=== PATIENT | female | born 1980 | race Caucasian/White ===

== ENCOUNTER 2022-06-23 14:45 | Outpatient (RCR) | payer OTHER, SELFPAY ==
[2022-04-19 02:58] LABS: Albumin* 4.3 g/dL (3.3-5.0); Chloride* 104 mmol/L (96-114); Potassium* 4.1 mmol/L (3.6-5.1); Sodium* 139 mmol/L (135-149)
[2022-04-19 03:00] LABS: Bilirubin Total* 0.3 mg/dL (0.1-1.5); Carbon Dioxide* 28 mmol/L (20-32); Creatinine* 0.9 mg/dL (0.5-1.5); Estimated Glomerular Filt Rate 82.37
[2022-04-19 03:01] LABS: Alanine Aminotransferase* 12 U/L (4-35); Alkaline Phosphatase* 52 U/L (40-150); Aspartate Amino Transferase* 25 U/L (12-35); Blood Urea Nitrogen* 12 mg/dL (5-24); Calcium* 9.3 mg/dL (8.4-10.6); Glucose* 86 mg/dL (60-115); Total Protein* 6.9 g/dL (6.0-8.3)
[2022-04-20 20:57] LABS: Urine Osmolality 123 mOsm/kg
[2022-05-25 21:36] LABS: Albumin* 4.3 g/dL (3.3-5.0); Chloride* 103 mmol/L (96-114)
[2022-05-25 21:37] LABS: Potassium* 4.2 mmol/L (3.6-5.1); Sodium* 138 mmol/L (135-149)
[2022-05-25 21:39] LABS: Alkaline Phosphatase* 49 U/L (40-150); Aspartate Amino Transferase* 23 U/L (12-35); Bilirubin Total* 0.2 mg/dL (0.1-1.5); Blood Urea Nitrogen* 13 mg/dL (5-24); Carbon Dioxide* 27 mmol/L (20-32); Creatinine* 0.9 mg/dL (0.5-1.5); Estimated Glomerular Filt Rate 82 ml/min; Glucose* 91 mg/dL (60-115); Total Protein* 7.3 g/dL (6.0-8.3)
[2022-05-25 21:40] LABS: Alanine Aminotransferase* 12 U/L (4-35); Calcium* 9.2 mg/dL (8.4-10.6)
[2022-05-27 20:52] LABS: Urine Osmolality 138 mOsm/kg
[2022-06-23 15:18] LABS: Albumin* 4.4 g/dL (3.3-5.0); Chloride* 104 mmol/L (96-114); Potassium* 4.2 mmol/L (3.6-5.1); Sodium* 137 mmol/L (135-149)
[2022-06-23 15:20] LABS: Creatinine* 0.9 mg/dL (0.5-1.5); Estimated Glomerular Filt Rate 82 ml/min
[2022-06-23 15:21] LABS: Alanine Aminotransferase* 12 U/L (4-35); Alkaline Phosphatase* 54 U/L (40-150); Aspartate Amino Transferase* 27 U/L (12-35); Bilirubin Total* 0.7 mg/dL (0.1-1.5); Blood Urea Nitrogen* 11 mg/dL (5-24); Calcium* 9.1 mg/dL (8.4-10.6); Carbon Dioxide* 25 mmol/L (20-32); Glucose* 90 mg/dL (60-115); Total Protein* 7.1 g/dL (6.0-8.3)
[2022-08-03 22:31] LABS: Albumin* 4.5 g/dL (3.3-5.0)
[2022-08-03 22:32] LABS: Chloride* 103 mmol/L (96-114); Sodium* 138 mmol/L (135-149)
[2022-08-03 22:34] LABS: Aspartate Amino Transferase* 23 U/L (12-35); Bilirubin Total* 0.3 mg/dL (0.1-1.5); Carbon Dioxide* 29 mmol/L (20-32); Creatinine* 0.9 mg/dL (0.5-1.5); Estimated Glomerular Filt Rate 82 ml/min; Total Protein* 7.2 g/dL (6.0-8.3)
[2022-08-03 22:35] LABS: Alanine Aminotransferase* 15 U/L (4-35); Alkaline Phosphatase* 52 U/L (40-150); Blood Urea Nitrogen* 12 mg/dL (5-24); Calcium* 9.3 mg/dL (8.4-10.6); Glucose* 74 mg/dL (60-115)
[2022-09-19 14:03] LABS: Albumin* 4.6 g/dL (3.3-5.0); Chloride* 107 mmol/L (96-114); Sodium* 140 mmol/L (135-149)
[2022-09-19 14:04] LABS: Potassium* 4.3 mmol/L (3.6-5.1)
[2022-09-19 14:06] LABS: Alanine Aminotransferase* 14 U/L (4-35); Alkaline Phosphatase* 48 U/L (40-150); Aspartate Amino Transferase* 22 U/L (12-35); Bilirubin Total* 0.7 mg/dL (0.1-1.5); Blood Urea Nitrogen* 11 mg/dL (5-24); Carbon Dioxide* 26 mmol/L (20-32); Creatinine* 0.9 mg/dL (0.5-1.5); Estimated Glomerular Filt Rate 82 ml/min; Glucose* 73 mg/dL (60-115); Total Protein* 7.1 g/dL (6.0-8.3)
[2022-09-19 14:07] LABS: Calcium* 9.3 mg/dL (8.4-10.6)
[2022-11-01 21:23] LABS: Albumin* 4.2 g/dL (3.3-5.0); Chloride* 103 mmol/L (96-114); Potassium* 4.3 mmol/L (3.6-5.1); Sodium* 139 mmol/L (135-149)
[2022-11-01 21:25] LABS: Creatinine* 0.8 mg/dL (0.5-1.5); Estimated Glomerular Filt Rate 95 ml/min
[2022-11-01 21:26] LABS: Alanine Aminotransferase* 15 U/L (4-35); Alkaline Phosphatase* 46 U/L (40-150); Aspartate Amino Transferase* 23 U/L (12-35); Bilirubin Total* 0.5 mg/dL (0.1-1.5); Blood Urea Nitrogen* 10 mg/dL (5-24); Carbon Dioxide* 29 mmol/L (20-32); Glucose* 82 mg/dL (60-115); Total Protein* 7.2 g/dL (6.0-8.3)
[2022-11-01 21:27] LABS: Calcium* 9.2 mg/dL (8.4-10.6)
[2022-12-07 14:57] LABS: Chloride* 105 mmol/L (96-114)
[2022-12-07 14:58] LABS: Albumin* 4.5 g/dL (3.3-5.0); Potassium* 4.6 mmol/L (3.6-5.1); Sodium* 139 mmol/L (135-149)
[2022-12-07 15:01] LABS: Alanine Aminotransferase* 15 U/L (4-35); Alkaline Phosphatase* 44 U/L (40-150); Aspartate Amino Transferase* 22 U/L (12-35); Bilirubin Total* 0.9 mg/dL (0.1-1.5); Blood Urea Nitrogen* 9 mg/dL (5-24); Carbon Dioxide* 29 mmol/L (20-32); Creatinine* 0.9 mg/dL (0.5-1.5); Estimated Glomerular Filt Rate 82 ml/min; Glucose* 80 mg/dL (60-115); Total Protein* 7.5 g/dL (6.0-8.3)
[2022-12-07 15:02] LABS: Calcium* 9.5 mg/dL (8.4-10.6)
[2023-03-21 22:17] LABS: Albumin* 4.5 g/dL (3.3-5.0); Chloride* 103 mmol/L (96-114)
[2023-03-21 22:18] LABS: Potassium* 4.3 mmol/L (3.6-5.1); Sodium* 138 mmol/L (135-149)
[2023-03-21 22:20] LABS: Aspartate Amino Transferase* 24 U/L (12-35); Bilirubin Total* 0.6 mg/dL (0.1-1.5); Blood Urea Nitrogen* 10 mg/dL (5-24); Carbon Dioxide* 28 mmol/L (20-32); Creatinine* 0.9 mg/dL (0.5-1.5); Estimated Glomerular Filt Rate 82 ml/min; Total Protein* 7.5 g/dL (6.0-8.3)
[2023-03-21 22:21] LABS: Alanine Aminotransferase* 15 U/L (4-35); Alkaline Phosphatase* 40 U/L (40-150); Calcium* 9.7 mg/dL (8.4-10.6); Glucose* 76 mg/dL (60-115)
== END 2023-06-07 11:50 | disposition home or self-care (01) ==
LOC: LAB 14:45
PROVIDERS: PCP Physician Assistant Medical; Visit Provider Internal Medicine Nephrology
DX: Q61.2 Polycystic kidney, adult type (principal)
CPT/HCPCS: 36415; 80053; 83935

== ENCOUNTER 2023-04-01 19:45 | Outpatient (CLI) | payer OTHER, SELFPAY ==
--- NOTE | 2023-04-17 09:16 | W.PM.SLEEP ---
Sleep Study Details Details Interpreting Provider: Jocelyne Date of Sleep Study: 04/01/23 Sleep Study Details: STUDY TYPE:? Home unattended ? BMI:? 24.4 ORDERING PROVIDER:Taylor Paz INDICATION:? Concerns about sleep apnea ? SLEEP SUMMARY:? 444 minutes monitored RESPIRATORY SUMMARY:? AHI 1.1 with minimal positional variation Low oxygen 92 0.1% of study oxygen less than 90% No snoring was noted PERIODIC LIMB MOVEMENTS OF SLEEP:? Not recorded during home study CARDIAC:? Range 55-100, mean 67 IMPRESSION:? This study does not demonstrate significant obstructive sleep apnea. If sleep disorder is strongly suspected an in-lab study is recommended. RECOMMENDATION: See above
== END 2023-04-01 19:46 | disposition home or self-care (01) ==
LOC: SLEEP 19:45
PROVIDERS: PCP Physician Assistant Medical; Visit Provider Physician Assistant Medical
DX: G47.19 Other hypersomnia (principal)
CPT/HCPCS: 95806

== ENCOUNTER 2023-07-02 22:04 | Outpatient (REF) | payer OTHER, SELFPAY ==
[2023-07-03 02:55] LABS: Albumin* 4.3 g/dL (3.3-5.0); Chloride* 102 mmol/L (96-114); Potassium* 4.2 mmol/L (3.6-5.1); Sodium* 141 mmol/L (135-149)
[2023-07-03 02:58] LABS: Alanine Aminotransferase* 16 U/L (4-35); Alkaline Phosphatase* 47 U/L (40-150); Anion Gap 9 mEq/L (7-15); Aspartate Amino Transferase* 27 U/L (12-35); Bilirubin Total* 0.4 mg/dL (0.1-1.5); Blood Urea Nitrogen* 10 mg/dL (5-24); Carbon Dioxide* 30 mmol/L (20-32); Creatinine* 1.1 mg/dL (0.5-1.5); Estimated Glomerular Filt Rate 64 ml/min; Glucose* 85 mg/dL (60-115); Total Protein* 7.4 g/dL (6.0-8.3)
[2023-07-03 02:59] LABS: Calcium* 10.1 mg/dL (8.4-10.6)
== END 2023-07-02 22:05 | disposition home or self-care (01) ==
LOC: NPINS 22:04
PROVIDERS: PCP Physician Assistant Medical; Visit Provider Internal Medicine Nephrology
DX: Q61.2 Polycystic kidney, adult type (principal)
CPT/HCPCS: 80053

== ENCOUNTER 2023-11-03 10:32 | Outpatient (RCR) | payer OTHER, SELFPAY ==
--- OUTSIDE RECORDS SUMMARY | 2023-11-03 10:26 | XMS_ITS | Encounter Summary ---
Author Name Unknown Organization [place] Address [facility] [place] [address] Care Team Providers Care Aviation Maintenance Technician Name Role Phone Logeais, Alda BEST Unavailable Logeais, Alda BEST Primary Care Provider [phone] Shy Marks PA-C Unavailable Encounter Details Date Type Department Care Team (Late st Contact Info) Description 08/07/2023 [facility] [address] [place] [address] [facility] Social History Tobacco Use Types Packs/Day Years Used Date Smoking Tobacco: Never Smokeless Tobacco: Never Humiliation, Afraid, Rape, and Kick questionnair e Answer Date Recorded Within the last year, have y ou been afraid of your partner or ex-partner? No 04/30/2023 Within the last year, have y ou been humiliated or emotionally abused in other ways by your partner or ex-partner? No Within the last year, have y ou been kicked, hit, slapped, or otherwise physically hurt by your partner or ex-partner? No 04/30/2023 Within the last year, have y ou been raped or forced to have any kind of sexual activity by your partner or ex-partner? No 04/30/2023 PHQ-2 Answer Date Recorded PHQ-2 Score 0 04/30/2023 Adolescent Education Answer Date Record ed Getting School Help Needed Not on file 06/30 Sex and Gender Information Value Date Recorded Sex Assigned at Female 04/04/2022 4:51 PM CDT Gender Identity Female 04/04/2022 4:51 PM CDT Sexual Orientation Straight 04/04/2022 4: 51 PM CDT documented as of this encounter Plan of Treatment Upcoming Encounters Date Type Department Care Team (Late st Contact Info) Description 01/02/2024 10:00 AM CDT Office Visit [facility] [address] [facility] [address] [place] [phone] Lyssa Delcid MD [address] [facility] [address] [place] [address] documented as of this encounter Visit Diagnoses Not on filedocumented in this encounter Care Teams Aviation Maintenance Technician Relationship Specialty Start Date End Date Alda Hawkins MD [address] [place] [address] PCP - General Internal Medicine 04/30/23 Alda Hawkins MD [address] [place] [address] Assigned PCP 03/23/22 Shy Marks PA-C [address] [place] [address] Assigned Surgical Provider 05/26/23 documented as of this encounter
--- OUTSIDE RECORDS SUMMARY | 2023-11-03 10:26 | XMS_ITS | Encounter Summary ---
Author Name Unknown Organization [place] Address [facility]0 [facility] [place] [address] Care Team Providers Care Furnace Keeper Name Role Phone LogeaAlda martinez MD Unavailable Matthew Ayala OD Unavailable [phone] LogeaisAlda MD Primary Care Provider [phone] Encounter Details Date Type Department Care Team (Late st Contact Info) Description 04/30/2023 7:15 AM CDT Lab [address] 5th [place] [address] Encounter for preventative adult health care examination Social History Tobacco Use Types Packs/Day Years [...] Answer Date Recorded PHQ-2 Score 0 04/30/2023 Sex and Gender Information Value Date Recorded Sex Assigned at Female 04/04/2022 4:51 PM CDT Gender Identity Female 04/04/2022 4:51 PM CDT Sexual Orientation Straight 04/04/2022 4: 51 PM CDT COVID-19 Exposure Response Date Recorded In the last 10 days, have yo u been in contact with someone who was confirmed or suspected to have Coronavirus/COVID-19? No / Unsure 04/30/2023 7:11 AM CDT documented as of this encounter Plan of Treatment Upcoming Encounters Date Type Department Care Team (Late st Contact Info) Description 01/02/2024 10:00 AM CDT Office Visit [facility] [address] [facility] [address] [place] [address] Lyssa Delcid MD [address] [place] [address] documented as of this encounter Procedures Procedure Name Priority Date/Time Associated Diagnosis Comments EXTRA TUBE Routine 04/30/2023 7:50 AM CDT EXTRA RED TOP TUBE Routine 04/30/2023 7: 50 AM CDT EXTRA BLUE TOP TUBE Routine 04/30/2023 7:50 AM CDT HEPATITIS C ANTIBODY Add-On 04/30/2023 7:50 AM CDT Encounter for preventative adult health care examination documented in this encounter Results * Hepatitis C antibody (04/30/2023 7:50 AM CDT) Hepatitis C Antibody Nonreactive Nonreactive 04/30/2023 5:10 PM CDT [facility] DO Blood STRUCTURE OF RIGHT UPPER LIMB / Unknown Venipuncture / Unknown 04/30/2023 7:50 AM CDT 04/30/2023 8:00 AM CDT Narrative [facility]END[facility] - 04/30/2023 5:10 PM CDT Assay performance characteristics have not been established for newborns, infants, and children. Darien Duval MD LAB - BLOOD OR DERABLES [facility]Prot[facility]Endo [address] [facility] [address] Building, Room [address] [phone] * Extra Red Top Tube (04/30/2023 7:50 AM CDT) Hold Specimen [facility] 04/30/2023 9:01 AM CDT [facility] - CORE LAB Blood STRUCTURE OF RIGHT UPPER LIMB / Unknown Venipuncture / Unknown 04/30/2023 7:50 AM CDT 04/30/2023 8:00 AM CDT Darien Duval MD LAB - BLOOD OR DERABLES Performing Organization Address City/[facility] Co de Phone Number [facility] - [facility]ORE [facility] [address] [place] [address] * Extra Blue Top Tube (04/30/2023 7:50 AM CDT) Hold Specimen [facility] 04/30/2023 9:01 AM CDT [facility] - CORE LAB Blood STRUCTURE OF RIGHT UPPER LIMB / Unknown Venipuncture / Unknown 04/30/2023 7:50 AM CDT 04/30/2023 8:00 AM CDT Darien Duval MD LAB - BLOOD OR DERABLES Performing Organization Address City/[facility]/ZIP Co de Phone Number [facility] - [facility]ORE [facility] [address] [place] [address] documented in this encounter Visit Diagnoses Diagnosis Encounter for preventative adult health care examination documented in this encounter Care Teams Furnace Keeper Relationship Specialty Start Date End Date Alda Hawkins MD [address] [place] [address] PCP - General Internal Medicine 04/30/23 Alda Hawkins MD [address] [place] [address] Assigned PCP 03/23/22 Matthew Ayala OD [address] [place] [phone] Assigned Surgical Provider 02/10/23 documented as of this encounter
--- OUTSIDE RECORDS SUMMARY | 2023-11-03 10:26 | XMS_ITS | Encounter Summary ---
Author Name Unknown Organization [place] Address [facility] [place] [address] Care Team Providers Care Pot Fluxer Name Role Phone LogeaAlda martinez MD Unavailable Matthew Ayala OD Unavailable [phone] LogeaisAlda MD Primary Care Provider [phone] Encounter Details Date Type Department Care Team (Latest Contact Info) Description 04/30/2023 Travel Social History Tobacco Use Types Packs/Day Years [...] Description 01/02/2024 10:00 AM CDT Office Visit [facility] [address] [facility] [address] [place] [phone] Lyssa Delcid MD [address] [place], [place] [phone] documented as of this encounter Visit Diagnoses Not on filedocumented in this encounter Care Teams Pot Fluxer Relationship Specialty Start Date End Date Alda Hawkins MD [address] [place] [address] PCP - General Internal Medicine 04/30/23 Alda Hawkins MD [address] [place] [address] Assigned PCP 03/23/22 Matthew Ayala OD [address] [place] [phone] Assigned Surgical Provider 02/10/23 documented as of this encounter
--- OUTSIDE RECORDS SUMMARY | 2023-11-03 10:26 | XMS_ITS | Encounter Summary ---
Author Name Unknown Organization [place] Address [address] [facility] [address] Care Team Providers Care Hygiene Coordinator Name Role Phone Logeais, Alda BEST Unavailable Logeais, Alda BEST Primary Care Provider [phone] Shy Marks PA-C Unavailable [phone] Encounter Details Date Type Department Care Team (Late st Contact Info) Description 08/07/2023 Telephone [facility] [address]rd [place] [address] None Social History Tobacco Use Types Packs/Day Years [...] PM CDT documented as of this encounter Miscellaneous Notes * Telephone Encounter - Oriana Patrick - 08/07/2023 11:33 AM CDT Patient call: Appointment type: NEW ENDOCRINE Provider: ANY Return date: FIRST AVAILABLE Speciality phone number: [phone] Additional appointment(s) needed: Additional notes: LVM AND SENT MYC X2 (final attempt) Oriana Patrick on 08/07/2023 at 11:33 AM documented in this encounter Plan of Treatment Upcoming Encounters Date Type Department Care Team (Late st Contact Info) Description 01/02/2024 10:00 AM CDT Office Visit [facility] [address] [facility] [address] [place] [phone] Lyssa Delcid MD [address] [place] [address] 200 [place] [address] documented as of this encounter Visit Diagnoses Not on filedocumented in this encounter Care Teams Hygiene Coordinator Relationship Specialty Start Date End Date Alda Hawkins MD [address] [place] [phone] PCP - General Internal Medicine 04/30/23 Alda Hawkins MD [address] [place] [address] Assigned PCP 03/23/22 Shy Marks PA-C [address] [place] [address] Assigned Surgical Provider 05/26/23 documented as of this encounter
--- OUTSIDE RECORDS SUMMARY | 2023-11-03 10:26 | XMS_ITS | Clinical Summary ---
Author Name Unknown Organization [place] Address [address] [place] [address]. [place] [address] Care Team Providers Care Lpn Care Manager Name Role Phone Logeais, Alda BEST Unavailable Logeais, Alda BEST Primary Care Provider [phone] Shy Marks PA-C Unavailable Allergies Active Allergy Reactions Criticality Noted Date Comments Mariela Nausea and Vomiting High 04/06/2022 Gramineae Pollens Other (See Comments) 08/16/20 06 Medications Medication Sig Dispensed Refills Start Date End Date Status escitalopram (LEXAPRO) 10 MG tablet Take 10 mg by mouth daily 0 03/03/2022 Active Tolvaptan (JYNARQUE) 30 & 15 MG TBPK Jynarque 30 mg (AM)/15 mg (PM) tablets 1 tablet twice a day by oral route. 0 05/08/2021 Active levonorgestrel (MIRENA) 20 MCG/DAY IUD Mirena 20 mcg/24 hours (6 yrs) 52 mg intrauterine device Take by intrauterine route. 0 12/18/2018 Active candesartan (ATACAND) 8 MG tablet Take 8 mg by mouth 0 06/28/2022 Active Encounters Date Type Department Care Team Description 08/07/2023 Telephone [facility] [address] 3rd [place] [address] None 08/07/2023 MyC Medical Advice [facility] [address] [phone] Nicko Mark 08/03/2023 Telephone [facility] [address] [address] None 08/03/2023 [facility] [place] Medical Advice [facility] [address] [address] Nicko Mark from Last 3 Months Immunizations Name Administration Dates Next Due COVID-19 MONOVALENT 12+ (Pfizer) 021,02/05/2021,02/03/2021, 021,01/06/2021 Influenza (IIV3) PF 07/24/2011,07/21/2010 Influenza Vaccine >6 months,quad, PF 08/05/2020 TDAP (Adacel,Boostrix) 04/12/2022,07/21/2010 Family History Medical History Relation Comments Congenital heart disease Brother bicuspi d AV Hypertension Father CABG Maternal Grandfather 4V Alzheimer Disease Maternal Grandmother Cerebrovascular Disease Maternal Grandmother Luis's thyroiditis Mother Hypertension Mother Colon Cancer Paternal Grandfather Melanoma No family hx of Skin Cancer No family hx of Relation Status Comments Brother Father Maternal Grandfather Maternal Grandmother Mother Paternal Grandfather Social History Tobacco Use Types Packs/Day Years Used Date Smoking Tobacco: Never Smokeless Tobacco: Never Tobacco Cessation:Counseling Given: No Humiliation, Afraid, Rape, and Kick questionnair e [...] Orientation Straight 04/04/2022 4: 51 PM CDT Last Filed Vital Signs Vital Sign Reading Time Taken Comments Blood Pressure 113/75 04/30/2023 8:03 AM CDT Pulse 60 04/30/2023 8:01 AM CDT Temperature 36.8 ??C (98.2 ??F) 04/30/2023 8:01 AM CD T Respiratory Rate 16 04/30/2023 8:01 AM CDT Oxygen Saturation 99% 04/30/2023 8:01 AM CDT Inhaled Oxygen Concentration - - Weight 76.2 kg (168 lb) 04/30/2023 8:01 AM CDT Height 172.7 cm (5' 8) 04/30/2023 8:01 AM CDT Body Mass Index 25.54 04/30/2023 8:01 AM CDT Plan of Treatment Upcoming Encounters Date Type Department Care Team (Late st Contact Info) Description 01/02/2024 10:00 AM CDT Office Visit [facility] [address] [place] [address] Lyssa Delcid MD [address] [place] [address] Health Maintenance Due Date Last Done Comments ADVANCE CARE PLANNING 1980 ANNUAL REVIEW OF HM ORDERS 1980 HEPATITIS B IMMUNIZATION (1 of 3 - 3-dose series) 1980 HPV TEST 01/04/2023 01/04/2018, 01/04/2018 PAP 01/04/2023 01/04/2018, 01/04/2018 COVID-19 Vaccine ( season) 2023 07/07/2022, 09/09/2021, 02/05/2021, Additional history exists PHQ-2 (once per calendar year) 2023 04/30/2023, 04/30/2023, 04/12/2022, Additional history exists YEARLY PREVENTIVE VISIT 04/30/2024 04/30/20, 04/12/2022, 04/12/2022, Additional history exists DTAP/TDAP/TD IMMUNIZATION (3 - Td or Tdap) 04/12/2032 04/12/2022, 07/21/2010 HEPATITIS C SCREENING Completed 04/30/2023 HIV SCREENING Completed 04/30/2023, 04/12/2022 INFLUENZA VACCINE Completed 06/25/2023, , 07/24/2011, Additional history exists HPV IMMUNIZATION Aged Out No longer e ligible based on patient's age to complete this topic IPV IMMUNIZATION Aged Out No longer e ligible based on patient's age to complete this topic MENINGITIS IMMUNIZATION Aged Out No l onger eligible based on patient's age to complete this topic Pneumococcal Vaccine: Pediatrics (0 to 5 Years) and At-Risk Patients (6 to 64 Years) Aged Out No longer eligible based on patient's age to complete this topic RSV MONOCLONAL ANTIBODY Aged Out No l onger eligible based on patient's age to complete this topic Care Teams Lpn Care Manager Relationship Specialty Start Date End Date Alda Hawkins MD [address] [place] [address] [phone] PCP - General Internal Medicine 04/30/23 Alda Hawkins MD [address] [phone] Assigned PCP 03/23/22 Shy Marks PA-C [address] [place] [address] Assigned Surgical Provider 05/26/23
--- OUTSIDE RECORDS SUMMARY | 2023-11-03 10:26 | XMS_ITS | Encounter Summary ---
Author Name Unknown Organization [place] Address [facility] [place] [address] Care Team Providers Care Audit Practice Intern Name Role Phone Logeais, Alda BEST Unavailable Logeais, Alda BEST Primary Care Provider [phone] Shy Marks PA-C Unavailable [phone] Encounter Details Date Type Department Care Team (Late st Contact Info) Description 08/03/2023 [facility] [address] [place] [address] [facility] Social History Tobacco Use Types Packs/Day Years [...] Visit [facility] [address] [facility] [address] [place] [phone] Lyssa Delcid MD [address] [facility] [address] [place] [address] documented as of this encounter Visit Diagnoses Not on filedocumented in this encounter Care Teams Audit Practice Intern Relationship Specialty Start Date End Date Alda Hawkins MD [address] [place] [address] PCP - General Internal Medicine 04/30/23 Alda Hawkins MD [address] [place] [phone] Assigned PCP 03/23/22 Shy Marks PA-C [address] [place] [address] Assigned Surgical Provider 05/26/23 documented as of this encounter
--- OUTSIDE RECORDS SUMMARY | 2023-11-03 10:26 | XMS_ITS | Encounter Summary ---
Author Name Unknown Organization [place] Address [address] [facility] [place] [address] Care Team Providers Care Church Supervisor Name Role Phone Logeais, Alda BEST Unavailable Logeais, Alda BEST Primary Care Provider [phone] Shy Marks PA-C Unavailable [phone] Reason for Visit * Reason Onset Date Comments Call Back 08/01/2023 Referral 08/01/2023 Encounter Details Date Type Department Care Team (Late st Contact Info) Description 08/01/2023 Telephone [facility] [address]rd [place] [address] None Call Back; Referral Social History Tobacco Use Types Packs/Day Years [...] Oriana Patrick - 08/07/2023 11:33 AM CDT Lvm and sent myc x2 (final attempt) Oriana Patrick on 08/07/2023 at 11:34 AM * Telephone Encounter - Oriana Patrick - 08/03/2023 12:57 PM CDT LVM AND SENT MYC X1 Oriana Patrick on 08/03/2023 at 12:57 PM * Telephone Encounter - Radha Barros - 08/01/2023 11:12 AM CDT Images from the original note were not included. We triage based on results per protocol. No recent results (within the last 30 days) available for triage. Current Provider can submit new results for review if needed. First available. Jodi Workman RN on 08/01/2023 at 11:34 AM RE Reason for Call: Appointment Intake Referring Provider Name: OTONIEL, ANALIA ALANIZ Diagnosis and/or Symptoms: 42-y.o. woman requests evaluation of thyroid in setting of strong FHx (Mwith Luis's; Brother & Grandmother with unspecified thyroid disease); ongoing fatigue withnormal sleep study and TSH. Thank you! persistent fatigue with normal. Can we please get a review on this referral. Due to Normal testing and just fatigue. We are unsure how to schedule. documented in this encounter Plan of Treatment Upcoming Encounters Date Type Department Care Team (Late st Contact Info) Description 01/02/2024 10:00 AM CDT Office Visit [facility] [address] [place] [phone] Lyssa Delcid MD [address] [place], [place] [address] documented as of this encounter Visit Diagnoses Not on filedocumented in this encounter Care Teams Church Supervisor Relationship Specialty Start Date End Date Alda Hawkins MD [address] [address] PCP - General Internal Medicine 04/30/23 Alda Hawkins MD [address] [address] Assigned PCP 03/23/22 Shy Marks PA-C [address] [place] [address] Assigned Surgical Provider 05/26/23 documented as of this encounter
--- OUTSIDE RECORDS SUMMARY | 2023-11-03 10:26 | XMS_ITS | Data Portability ---
Author Name Unknown Address [address] [place] [address] Phone [phone] Organization [place] - NIGHT CLERK, [id number] Address [address] [address] Assessment Encounter Date Assessment Date Assessment LastModified by Organization Details LastModified Time 08/05/2020 08/05/2020 Princess is a 39 yo who presents for annual exam. >50% of the visit was spent in consultation or coordination of care. Total time spent was ___15 minutes. - Encouraged breast self-awareness. - Calcium and vitamin D intake discussed. - Encouraged regular exercise. - Discussed cervical cancer screening guidelines. Due in 2022, last 2017 NILM/HPV negative -contraception: mirena IUD, placed 2018 -cholesterol/dm screening today [email or web address] Not available 08/10/2020 10:57:41 08/10/2020 08/10/2020 39 year old female who presents for ultrasound follow up >50% of the visit was spent in consultation or coordination of care. Total time spent was 10____ minutes. [email or web address] Not available 08/10/2020 10:42:36 08/02/2022 08/02/2022 I spent a total of 15 minutes providing care for this patient including: preparing to see the patient, obtaining a medical history, completing a medically appropriate physical exam, completing documentation of visit information and plans in the EMR, counseling the patient and/or caregiver regarding her diagnosis, treatment options and follow up plans, as well as any necessary communication of subsequent test results to the patient [email or web address] Not available 08/02/2022 12:25:28 07/02/2023 07/02/2023 I spent a total of 20 minutes providing care for this patient including: preparing to see the patient, obtaining a medical history, completing a medically appropriate physical exam, completing documentation of visit information and plans in the EMR, counseling the patient and/or caregiver regarding her diagnosis, treatment options and follow up plans, as well as any necessary communication of subsequent test results to the patient [email or web address] Not available 07/02/2023 14:18:49 Plan of Treatment Reminders Order Date Submit Date Provider Last Modified By Organization Details Last Modified Time Details Appointments None recorded. Lab cytology report, thin prep, smear or scraping, cervical or vaginal 2021 022 GENESEE [facility], [address], [place], [address], 2 14:21:07 bacterial vaginosis + vaginitis panel, vaginal 2020 021 [email or web address] [facility], [address] , [facility] [address], [address], 1 11:38:00 hemoglobin (Hb), fingerstick , blood 2020 021 [id number] [facility], [address], [place] [address], [place], [address], 1 09:06:56 lipid panel, blood 2019 020 [facility], [address] [place], [address], 0 16:13:06 hemoglobin (Hb), fingerstick , blood 2019 020 [facility] SimpsonCs425_avrugjr [facility] , [address], [address], [place], [address], 0 12:50:50 glucose, blood 2019 020 [facility], [address], [place], [address], 0 16:13:05 Referral breast center referral - known R breast cyst, imaged in March, now bigger and another one has formed that are bothersome, would like drained - please call pt to schedule- okay for any imaging/avila ting as needed/carla mmended by supervising radiologist 2021 022 [email or web address] [facility] [place], [address], [address], [place], [address], 2 13:47:58 breast center referral - Please call pt to schedule Bilateral Diagnostic mammogram and right breast ultrasound. Okay for any additional imaging/aivla ting as recommended by supervising radiologist 2021 022 [email or web address] [facility], [address], [address], [place], [address], 2 17:32:16 Procedures None recorded. Surgeries None recorded. Imaging US, pelvis, transabdomi nal + transvagina l 2022 023 [id number] [facility], [address], [address], [place], [address], 3 09:32:04 US, pelvis, transabdomi nal + transvagina l 2019 020 [email or web address] [email or web address] [facility], [address], [address], [place], [address], 0 12:53:02 US, breast, unilateral - Please do and and all appropriate imaging including a diagnostic mammogram if needed. - Please call pt. to schedule. Any questions call Claudia @ 2019 020 [facility] [place], [address] [facility], [address], [place], [address], 0 16:23:17 Medication Orders Diflucan 150 mg tablet 2020 021 [id number], [address] [facility], [place], [place], [id number], 1 15:49:54 Patient TargetsNo targets recorded. Patient Instructions Encounter Date Encounter Id Patient Instructions Last Modified By Organization Details Last Modified Time 07/02/2023 [id number] -reviewed w/Dr. Dempsey -discussed u/s findings with patient -advised to monitor for now as long as sx remain mild and intermittent -call for further eval if sx worsen -f/u 1 year for annual exam, sooner PRN [email or web address] Not available 07/02/2023 14:18:29 06/25/2023 [id number] -encouraged perimenopause class - Encouraged breast self-awareness and monthly breast exams. - Recommend mammogram annually starting at age 40. - Encouraged regular exercise. - Discussed calcium, vitamin D, and weight bearing exercise for bone health. - Recommend colonoscopy starting at age 45. [email or web address] Not available 06/25/2023 16:53:46 08/02/2022 [id number] -referral to breast center for imaging and possible cyst drainage -follow up for routine wellness visit, sooner PRN [email or web address] Not available 08/02/2022 12:25:19 03/08/2022 [id number] - Diagnostic imaging for suspected breast cyst - Encouraged regular exercise. - Calcium and vitamin D intake discussed. -non-[employer] concerns managed by PCP Reviewed recent change in CRC screening recommendations to start colonoscopies at age 45 in average risk individuals. [email or web address] Not available 03/08/2022 17:02:51 03/09/2021 [id number] - Encouraged breast self-awareness and recommend yearly mammogram. - Patient will return to clinic for fasting labs. - Discussed appropriate breast cancer screening and mammogram intervals. - Encouraged weight loss-action plan. - Discussed mood symptoms, discussed resources offered and phone numbers given to patient for counseling services/psychothe rapy, precautions regarding depressed mood also discussed and patient is aware of emergency resources. - Counseling on use of estrogen containing contraceptives provided, including the 10/999 risk of DVT or stroke. This risk may be higher in smokers. - Counseling on alternative methods of control provided including back up control and condoms. - Counseled on smoking cessation. - Trusted websites given to the patient. Diagnostic imaging ordered for probable breast cysts. [email or web address] Not available 03/09/2021 15:50:18 08/10/2020 [id number] -f/u in 1 year f or annual exam or sooner with problems [email or web address] Not available 08/10/2020 10:42:02 08/05/2020 [id number] follow up for ultrasound [email or web address] Not available 08/10/2020 10:58:20 Reason for Referral Breast Center Referral for M ass of right breast multiple breast lumps, has had cysts before, getting larger & more bothersome, largest on R breast at 6:00, 3x4 cm Please call pt. Referring Physician: Kiara Abreu NIGHT CLERK, Encounter Date: 03/09/2021 Breast Center Referral for M ass of right breast right breast lump Please call pt to schedule Bilateral Diagnostic mammogram and right breast ultrasound. Okay for any additional imaging/testing as recommended by supervising radiologist Referring Physician: MILIND Nash/GYN, Encounter Date: 03/08/2022 Breast Center Referral for M ass of right breast right breast lump x2 known R breast cyst, imaged in March, now bigger and another one has formed that are bothersome, would like drained - please call pt to schedule- okay for any imaging/testing as needed/recommended by supervising radiologist Referring Physician: Kiara Abreu NIGHT CLERK, Encounter Date: 08/02/2022 Results Created Date Observation Date Name Description Value Unit Range Abnormal Flag LastModifiedBy Organization Detail LastModifiedTime 03/09/2021 hemog lobin (Hb), finge rstic k, blood fingerstick hemoglobin 13.6 g/dL 12.0-1 5.0 Not Available [id number] magaly_[place] [address], [place], [address], 03/09/2021 10:57:59 08/05/2008/05/2020 gluco se, blood glucose 73 mg/dL 74-106 low Not Available [facility] [address] [place], [address], 08/05/2020 16:13:05 08/05/2008/05/2020 lipid panel , blood specimen type Not Available [facility] [address] [place], [address], 08/05/2020 16:13:06 08/05/2008/05/2020 lipid panel , blood cholesterol 187 mg/dL <200 Not Available [facility] [address] [place], [address], 08/05/2020 16:13:06 08/05/20 20 08/05/2020 lipid panel , blood triglyceride s profile 76 mg/dL <150 Not Available [facility] [address] [place], [address], 08/05/2020 16:13:06 08/05/2008/05/2020 lipid panel , blood LDL chol, calc 97 mg/dL <100 Not Available [facility] [address] [place], [address], 08/05/2020 16:13:06 08/05/2008/05/2020 lipid panel , blood HDL cholesterol 75 mg/dL >40 Not Available [facility] [address] [place], [address], 08/05/2020 16:13:06 08/05/2008/05/2020 lipid panel , blood chol/HDL ratio 2.5 0.0-4. 9 Not Available [facility] [address] [place], [address], 08/05/2020 16:13:06 08/05/20 20 08/05/2020 hemog lobin (Hb), finge rstic k, blood fingerstick hemoglobin 14.8 g/dL 12.0-1 5.0 Not Available [id number] mckenzie[address], [place], [address], 08/05/2020 09:07:39 03/09/20 21 03/09/2021 bacte rial vagin osis + vagin itis panel , vagin al gardnerella negati ve negati ve Not Available [id number] [address] [address], [place], [address], 03/09/2021 11:37:32 03/09/20 21 03/09/2021 bacte rial vagin osis + vagin itis panel , vagin al trichomonas negati ve negati ve Not Available [id number] [facility] [address] [address], [place], [address], 03/09/2021 11:37:32 03/09/20 21 03/09/2021 bacte rial vagin osis + vagin itis panel , vagin al nigel positi ve negati ve Not Available [email or web address] [facility] [address] [address], [place], [address], 03/09/2021 11:37:32 03/08/20 22 03/10/2022 IGP, APTIM A HPV, RFX 16/18 ,45 interpretati on nilm Not Available [facility] ([facility]) [address] [address], [place], [address], 03/10/2022 14:21:07 03/08/20 22 03/10/2022 IGP, APTIM A HPV, RFX 16/18 ,45 category: nil Not Available [facility] ([facility]) [address] [place] [address], [place], [address], 03/10/2022 14:21:07 03/08/20 22 03/10/2022 IGP, APTIM A HPV, RFX 16/18 ,45 adequacy: endo Not Available [facility] ([facility]) [address] [place] [address], [place], [address], 03/10/2022 14:21:07 03/08/20 22 03/10/2022 IGP, APTIM A HPV, RFX 16/18 ,45 clinician provided ICD10: robert buenrostro Not Available [facility] ([facility]) [address] [place] [address], [place], [address], 03/10/2022 14:21:07 03/08/20 22 03/10/2022 IGP, APTIM A HPV, RFX 16/18 ,45 performed by: robert buenrostro Not Available [facility] ([facility]) [address] [place] [address], [place], [address], 03/10/2022 14:21:07 03/08/20 22 03/10/2022 IGP, APTIM A HPV, RFX 16/18 ,45 note: robert buenrostro Not Available [facility] ([facility]) [address] [place] [address], [place], [address], 03/10/2022 14:21:07 03/08/20 22 03/10/2022 IGP, APTIM A HPV, RFX 16/18 ,45 test methodology: robert buenrostro Not Available [facility] ([facility]) [address] [place] [address], [place], [address], 03/10/2022 14:21:07 03/08/20 22 03/10/2022 IGP, APTIM A HPV, RFX 16/18 ,45 HPV aptima negati ve negati ve Not Available [facility] ([facility]) [address] [place] [address], [place], [address], 03/10/2022 14:21:07 08/10/20 US, pelvi s, trans abdom inal + trans vagin al No observ ation record ed. [facility] [address], [place], [address], 08/11/2020 13:53:38 08/17/20 20 08/17/2020 US, breas t, unila teral No observ ation record ed. [facility] [address], [place], [address], 08/19/2020 16:22:49 03/15/20 21 03/14/2021 MAMMO , diagn ostic , tomos ynthe sis, unila teral No observ ation record ed. [address], [place], [address], 03/15/2021 16:12:40 03/15/20 21 03/14/2021 US, breas t, unila teral No observ ation record ed. [address], [place], [address], 03/15/2021 16:11:03 03/15/20 21 03/14/2021 US, breas t No observ ation record ed. [address], [place], [address], 03/15/2021 16:10:08 03/14/20 22 03/13/2022 imagi ng/di agnos tic resul t No observ ation record ed. [facility] [address], [place], [address], 03/25/2022 11:13:01 03/14/20 22 03/13/2022 imagi ng/di agnos tic resul t No observ ation record ed. [facility] [address], [place], [address], 03/22/2022 14:36:51 08/11/20 22 08/10/2022 fine needl e aspir ation , cyst, breas t (PROC ) No observ ation record ed. [email or web address] [facility] [address], [place], [address], 08/11/2022 14:05:57 08/11/20 22 08/10/2022 fine needl e aspir ation , cyst, breas t (PROC ) No observ ation record ed. [email or web address] [facility] [address], [place], [address], 08/11/2022 14:05:46 08/14/20 22 08/10/2022 US, breas t, unila teral , limit ed No observ ation record ed. [email or web address] [facility] [address], [place], [address], 08/14/2022 10:29:45 07/02/20 23 07/02/2023 US, pelvi s, trans abdom inal + trans vagin al No observ ation record ed. [email or web address] [address], [place], [address], 07/03/2023 10:59:01 Result Notes None recorded. Problems No Known Problems Procedures Surgical History Date Name Laterality Status Provider Name and Address Organization Details Recorded Time 03/13/20 Date of Last Mammogram completed OLEGARIO Marx NIGHT CLERK 03/21/2022 06:51:02 03/08/20 Date of Last Pap Smear completed OLEGARIO Plasencia NIGHT CLERK 03/13/2022 12:49:12 12/19/19 19 Insert intrauterine device completed Not Available [facility] 05/17/2020 01:04:59 diagnostic aspiration of breast cyst completed NAZANIN NASH-BC [address] [facility],[address], [place], [address], [place] [facility] NIGHT CLERK 03/15/2021 15:46:07 Imaging Results Imaging Date Name Status LastModified by Organization Details LastModified Time 08/10/2020 US, pelvis, transabdominal + transvaginal completed [facility] [address], [place], [address], 08/11/2020 13:53:38 08/17/2020 US, breast, unilateral completed [facility] [address], [place], [address], 08/19/2020 16:22:49 03/14/2021 MAMMO, diagnostic, tomosynthesis, unilateral completed [email or web address] [facility] [address], [place], [address], 03/15/2021 16:12:40 03/14/2021 US, breast, unilateral completed [email or web address] [facility] [address], [place], [address], 03/15/2021 16:11:03 03/14/2021 US, breast completed [email or web address] [facility] [address], [place], [address], 03/15/2021 16:10:08 03/13/2022 imaging/diagnostic result completed [facility] [address], [place], [address], 03/25/2022 11:13:01 03/13/2022 imaging/diagnostic result completed [facility] [address], [place], [address], 03/22/2022 14:36:51 08/10/2022 fine needle aspiration, cyst, breast (PROC) [email or web address] [address], [place], [address], 08/11/2022 14:05:57 08/10/2022 fine needle aspiration, cyst, breast (PROC) completed [email or web address] [facility] [address], [place], [address], 08/11/2022 14:05:46 08/10/2022 US, breast, unilateral, limited completed [email or web address] [facility] [address], [place], [address], 08/14/2022 10:29:45 07/02/2023 US, pelvis, transabdominal + transvaginal completed [email or web address] [address], [place], [address], 07/03/2023 10:59:01 Procedure Notes None recorded. Medical Equipment None Reported. Allergies Allergen ID Allergen Name Allergen Category Reaction Reaction Severity Criticality Documentation Date Start Date Code Code System Note Provider Name and Address Organization Details Recorded Time 346500 luis alfredo extract food,medi cation vomiting severe Not available 03/08/2022 55705 1 RxNorm OLEGARIO Slade - NIGHT CLERK 2 15:58:03 Medications Name Sig Start Date Stop Date Status Note LastModified by Organization Details LastModified Time amoxicillin 500 mg capsule TAKE 1 CAPSULE BY MOUTH THREE TIMES DAILY X 7 DAYS. START FOLLOWING DENTAL SURGERY 03/09 completed Not Available Not Available Not Available Mirena 21 mcg/24 hours (8 yrs) 52 mg intrauterin e device Take by intrauter ine route. 2018 active Not Available Not Available Not Avai lable candesartan 4 mg tablet active Not Available Not Available Not Available fluconazole 150 mg tablet TAKE 1 TABLET BY MOUTH 1 TIME. REPEAT IN 72 HOURS IF SYMPTOMS STILL PRESENT 03/07 completed Not Available Not Available Not Available hydrocodone 5 mg-acetamin ophen 325 mg tablet TAKE 1-2 TABLETS BY MOUTH EVERY 6 HOURS NEEDED FOR PAIN 03/09 completed Not Available Not Available Not Available lisinopril 10 mg tablet TAKE 1 TABLET BY MOUTH DAILY 07/31 completed Not Available Not Available Not Available lisinopril 5 mg tablet TAKE 1 TABLET BY MOUTH DAILY IN ADDITION TO 10 MG TABLET. TO EQUAL 15 MG DAILY 07/31 completed Not Available Not Available Not Available lorazepam 1 mg tablet TAKE 2 AND 1/2 TABLETS BY MOUTH 2 HOURS BEFORE DENTAL APPOINTME NT AND BRING 1 AND 1/2 TABLETS TO THE APPOINTME NT. CREDIT REPORTER ESCORT NEEDED 03/09 completed Not Available Not Available Not Available methylpredn isolone 4 mg tablets in a dose pack TAKE 6 TABLETS BY MOUTH ON DAY OF PROCEDURE THEN DECREASE BY 1 TABLET BY MOUTH EACH DAY FOR A TOTAL OF 6 DAYS 03/09 completed Not Available Not Available Not Available candesartan 8 mg tablet Take 8 mg every day by oral route. 06/25 completed Not Available Not Available Not Available amoxicillin 875 mg-potassiu m clavulanate 125 mg tablet TAKE 1 TABLET BY MOUTH TWICE DAILY FOR 7 DAYS 03/08 completed Not Available Not Available Not Available hydroxyzine pamoate 25 mg capsule 08/05 completed Not Available Not Available Not Available escitalopra m 10 mg tablet TAKE 1 TABLET BY MOUTH DAILY 06/25 completed Not Available Not Available Not Available escitalopra m 20 mg tablet TK 1 T PO D active Not Available Not Available No t Available escitalopra m 5 mg tablet 07/31 completed Not Available Not Available Not Available Jynarque 45 mg (AM)/15 mg (PM) tablets 07/31 completed Not Available Not Available Not Available Jynarque 30 mg (AM)/15 mg (PM) tablets 1 tablet twice a day by oral route. active Not Available Not Available No t Available Vitals Date Recorded Body weight Body mass index (BMI) Body height Systolic blood pressure Diastolic blood pressure Provider Name and Address Organization Details Last Updated DateTime 03/08/2022 17145.18 g 24.4 kg/m2 175.26 cm 128 mm[Hg] 74 mm[Hg] OLEGARIO Slade NIGHT CLERK 2 16:04:49 Date Recorded Body height Body mass index (BMI) Body weight Systolic blood pressure Diastolic blood pressure Provider Name and Address Organization Details Last Updated DateTime 08/02/2022 175.26 cm 25.4 kg/m2 58143.89 g 132 mm[Hg] 80 mm[Hg] [facility] CL[facility] 2 11:16:43 Date Recorded Body height Body mass index (BMI) Body weight Systolic blood pressure Diastolic blood pressure Provider Name and Address Organization Details Last Updated DateTime 06/25/2023 175.26 cm 25.2 kg/m2 29421.14 g 118 mm[Hg] 72 mm[Hg] Ronel Yosergio (CHELY) [facility] NIGHT CLERK 3 16:24:02 Date Recorded Body height Body mass index (BMI) Body weight Systolic blood pressure Diastolic blood pressure Provider Name and Address Organization Details Last Updated DateTime 07/02/2023 175.26 cm 25.2 kg/m2 43100.86 g 115 mm[Hg] 75 mm[Hg] Lilli Dumont [facility] NIGHT CLERK 3 12:39:18 Date Recorded Body mass index (BMI) Body height Body weight Systolic blood pressure Diastolic blood pressure Provider Name and Address Organization Details Last Updated DateTime 09/11/2013 23.42 kg/m2 172.8216 cm 54188.22 498 g 118 mm[Hg] 70 mm[Hg] Not Available [facility] 0 08:12:48 Date Recorded Body mass index (BMI) Body height Body weight Systolic blood pressure Diastolic blood pressure Provider Name and Address Organization Details Last Updated DateTime 10/24/2011 23.26 kg/m2 172.8216 cm 51410.63 261 g 134 mm[Hg] 76 mm[Hg] Not Available [facility] 0 08:12:49 Date Recorded Body mass index (BMI) Body height Body weight Systolic blood pressure Diastolic blood pressure Provider Name and Address Organization Details Last Updated DateTime 07/03/2018 24.02 kg/m2 172.8216 cm 07519.59 446 g 106 mm[Hg] 64 mm[Hg] Not Available [facility] 0 08:12:48 Date Recorded Body mass index (BMI) Body height Body weight Systolic blood pressure Diastolic blood pressure Provider Name and Address Organization Details Last Updated DateTime 07/03/2013 23.04 kg/m2 172.8216 cm 99761.24 4055 g 124 mm[Hg] 84 mm[Hg] Not Available [facility] 0 08:12:48 Date Recorded Body height Body mass index (BMI) Body weight Systolic blood pressure Diastolic blood pressure Provider Name and Address Organization Details Last Updated DateTime 10/30/2012 172.8216 cm 23.26 kg/m2 40828.63 261 g 142 mm[Hg] 98 mm[Hg] Not Available [facility] 0 08:12:49 Date Recorded Body height Body mass index (BMI) Body weight Systolic blood pressure Diastolic blood pressure Provider Name and Address Organization Details Last Updated DateTime 01/23/2013 172.8216 cm 22.96 kg/m2 87303.44 787 g 138 mm[Hg] 82 mm[Hg] Not Available [facility] 0 08:12:49 Date Recorded Body mass index (BMI) Body height Body weight Systolic blood pressure Diastolic blood pressure Provider Name and Address Organization Details Last Updated DateTime 12/18/2018 24.63 kg/m2 172.8216 cm 39001.96 394 g 112 mm[Hg] 70 mm[Hg] Not Available [facility] 0 08:12:48 Date Recorded Body mass index (BMI) Body height Body weight Systolic blood pressure Diastolic blood pressure Provider Name and Address Organization Details Last Updated DateTime 01/04/2018 23.11 kg/m2 172.8216 cm 63239.04 024 g 122 mm[Hg] 74 mm[Hg] Not Available [facility] 0 08:12:48 Date Recorded Body height Body weight Body mass index (BMI) Systolic blood pressure Diastolic blood pressure Provider Name and Address Organization Details Last Updated DateTime 08/06/2013 172.8216 cm 53225.22 498 g 23.42 kg/m2 120 mm[Hg] 70 mm[Hg] Not Available [facility] 0 08:12:49 Date Recorded Body mass index (BMI) Body weight Body height Systolic blood pressure Diastolic blood pressure Provider Name and Address Organization Details Last Updated DateTime 08/09/2016 23.26 kg/m2 74478.63 261 g 172.8216 cm 126 mm[Hg] 84 mm[Hg] Not Available [facility] 0 08:12:49 Date Recorded Body mass index (BMI) Body weight Body height Systolic blood pressure Diastolic blood pressure Provider Name and Address Organization Details Last Updated DateTime 12/30/2014 22.35 kg/m2 63591.07 839 g 172.8216 cm 108 mm[Hg] 70 mm[Hg] Not Available [facility] [facility] 0 08:12:48 Date Recorded Body mass index (BMI) Body weight Body height Systolic blood pressure Diastolic blood pressure Provider Name and Address Organization Details Last Updated DateTime 12/11/2018 24.63 kg/m2 99269.96 394 g 172.8216 cm 124 mm[Hg] 72 mm[Hg] Not Available [facility] 0 08:12:49 Date Recorded Body weight Body mass index (BMI) Body height Systolic blood pressure Diastolic blood pressure Provider Name and Address Organization Details Last Updated DateTime 08/05/2020 69141.82 g 23.6 kg/m2 172.72 cm 128 mm[Hg] 84 mm[Hg] OLEGARIO Yin NIGHT CLERK 0 09:07:11 Date Recorded Body height Body mass index (BMI) Body weight Systolic blood pressure Diastolic blood pressure Provider Name and Address Organization Details Last Updated DateTime 08/10/2020 172.72 cm 23.8 kg/m2 80227.85 g 128 mm[Hg] 82 mm[Hg] Ru Romero (TERMED) OLEGARIO arevalo NIGHT CLERK 0 10:28:51 Date Recorded Body height Body mass index (BMI) Body weight Systolic blood pressure Diastolic blood pressure Provider Name and Address Organization Details Last Updated DateTime 03/09/2021 172.72 cm 25.5 kg/m2 47255.36 g 140 mm[Hg] 80 mm[Hg] OLEGARIO Lott NIGHT CLERK 1 10:57:24 Social History Question Answer Notes LastModified by Organizat ion Details LastModified Time Tobacco Smoking Status Never Smoker OLEGARIO Yin NIGHT CLERK 08/05/2020 07:42:10 What Is Your Level Of Alcohol Consumption? Occasional Every Other Week 1 Glass [email or web address] Information not available 08/10/2020 What Is Your Level Of Caffeine Consumption? Moderate 2c/day Information not available 08/02/2022 Which Illicit Or Recreational Drugs Have You Used? Denies Information not available 08/02/2022 What Is Your Occupation? [employer] Information not available 03/08/2022 Children's Names/ Ron Information not available 08/05/2020 History Of Domestic Violence No Denies All Domestic Violence [email or web address] Information not available 05/17/2020 Spouse/Partners Name Ananth Information not available 08/05/2020 Marital Status Informatio n not available 08/02/2022 What Is Your Relationship Status? Information not available 03/08/2022 Are You Sexually Active? Yes Information not available 03/08/2022 How Much Tobacco Do You Smoke? No Information not available 03/08/2022 Do You Use Any Illicit Or Recreational Drugs? No Information not available 03/08/2022 Sex: Female Functional Status Question Answer Note LastModified by Organizat ion Details LastModified Time What is your exercise level? Occasional Information not available 03/08/2022 Mental Status None recorded. Family History Relationship Description Onset Age of this Age Resolved Age Notes Maternal Grandmother Disorder of thyroid gland Maternal Grandfather Seizure Father Benign essential hypertension Father Hyperlipidemia Mother Disorder of thyroid gland Mother Hyperlipidemia Mother Uterine leiomyoma Mother Cardiac pacemaker procedure Paternal Grandmother Family history of diabetes mellitus Paternal Grandfather Malignant tumor of colon Brother Myocardial infarction Medical History Condition Response Psych- Depression Y Psych- Anxiety Disorder Y Cardiology- High Blood Pressure Y Gynecological History Statement/Question Response Current Control Method IUD Date of Last Pap Smear 03/08/2022 HPV Test Negative Age at Menarche: 14 Date of Last Mammogram 03/13/2022 Obstetrics History GPAL:G 1 P 1 0 0 1 Type Value Multiple Births 0 Full Term 1 Induced 0 Spontaneous 0 Premature 0 Living 1 Ectopics 0 Total 1 Immunizations Vaccine Type Date Status Provider Name and Address Organization Details Recorded Time SARS-COV-2 (COVID-19) vaccine, UNSPECIFIED 01/06/2021 completed Lilli Tim arevalo [place] [facility] NIGHT CLERK 07/02/2023 12:37:26 SARS-COV-2 (COVID-19) vaccine, UNSPECIFIED 02/05/2021 completed Lilli Tim arevalo [place] [facility] NIGHT CLERK 07/02/2023 12:37:26 Influenza, injectable, MDCK, quadrivalent, preservative 06/25/2023 [facility] [address] [facility] [address], [place], [address], [facility] NIGHT CL[facility] 06/25/2023 17:41:16 influenza, injectable, quadrivalent, preservative free 08/05/[address] [facility] NIGHT CLERK 08/05/2020 09:48:19 Past Encounters Encounter ID Performer Location Encounter Start Date Encounter Closed Date Diagnosis/Indication [id number] LEANDRO HORTON MD [id number] [place] [address] [address] 08/05/2020 08:58:42 08/05/2020 09:49:24 Gynecologic examination Hyperlipidemia screening Administration of influenza vaccine Pelvic mass Cyst of right breast Diabetes mellitus screening Mixed anxiety and depressive disorder [id number] LEANDRO HORTON MD [id number] [place] [address] [address] 08/10/2020 09:56:18 08/10/2020 10:58:26 Pelvic mass [id number] LEANDRO HORTON MD [id number] [place] [address] [address] 08/10/2020 10:20:20 08/10/2020 10:58:07 Cyst of left ovary Uterine leiomyoma [id number] KIARA ABREU JUAN ANTONIO [id number] [place] [address] [place] [address] 03/09/2021 10:33:49 03/09/2021 15:57:54 Gynecologic examination Vaginitis Breast lump [id number] KIARA ABREU JUAN ANTONIO [id number] [place] [address] [place] [address] 03/08/2022 15:49:21 03/23/2022 11:58:16 Gynecologic examination Mass of right breast [id number] KIARA ABREU [facility] [id number] [place] [address] [place] [address],[address] [place] [address] 08/02/2022 10:51:29 08/02/2022 13:47:58 Mass of right breast [id number] KIARA ABREU [facility] [id number] [place] [address] [place] [address],[address] [address] 06/25/2023 16:03:02 06/28/2023 12:42:16 Cyst of right breast Gynecologic examination Pain in pelvis Administration of influenza vaccine [id number] BENITO HALE MD [id number] [place] [address] [address] 07/02/2023 12:05:13 07/02/2023 17:48:39 Pain in pelvis Uterine leiomyoma [id number] KIARA ABREU [facility] [id number] [place] [address] [address] 07/02/2023 12:36:10 07/02/2023 14:36:46 Pain in pelvis Cyst of left ovary Uses IUD (intrauterine device) contraception Intramural leiomyoma of uterus Health Concerns Section Related Observation LastModified by Organization Detai ls LastModified Time None Recorded Concern Status LastModified by Organization Details LastModified Time None Recorded Advance Directives Directive None Recorded Payers Encounter Date Sequence Insurance Name Policy Number Policy Cespedes Covered Member ID Cespedes Member ID Guarantor Name 07/02/2023 1 [facility] [id number] Janis R Adair [id number] Janis Lovell Adair 07/02/2023 1 [facility] [id number] Janis R Adair [id number] Janis Lovell Adair 06/25/2023 1 [facility] [id number] Janis R Adair [id number] Janis Lovell Adair 08/02/2022 1 [facility] [id number] Janis R Adair [id number] Janis Lovell Adair 03/08/2022 1 [facility] [id number] Janis R Adair [id number] Janis Lovell Adair 03/09/2021 1 [facility] [id number] Janis Borrero [id number] Janis Christiansonuger 08/10/2020 1 [employer]: AN[employer]M [employer] (PPO) [id number] Serafin Quijanor [id number] Janis Christiansonuger 08/10/2020 1 [employer]) [id number] Serafin Quijanor [id number] Janis Christiansonuger 08/05/2020 1 [employer]) [id number] Serafin Quijanor [id number] Janis Borrero Notes Date Note Type Note Provider Name and Address Organization Details Recorded Time 08/05/2020 text/html HPI Notes: Santino Castro () Reported by patient. Patient Relationship To Practice: established patient Current Medical History: no active medical problems Relevant Family History: family history of colon cancer; no family history of breast cancer; no family history of ovarian cancer; no family history of uterine cancer; no family history of blood clots/DVT Menstrual History: Frequency of Menses: rare Contraceptive Method: Current Method Used: levonorgestrel containing IUD--5 year; satisfied Sexually Active: Yes: spouse STI Screen: declines Health/Prevention: Exercise: yes Pap Smear +/- HPV Cotesting: up-to-date Thyroid/Lipid Screening: due Patient has: Primary Care Physician: yes ([facility]ie Paz [facility]) Princess presents for annual exam, she notes that she has an IUD for contraception and has only occasional spotting. Prior to IUD, her periods were regular and medium flow. On lexapro for anxiety/depression, doing well with this. She notes that she started this in april. She notes that she started to feel a right breast lump 2 months ago that has not changed in size and is not painful with palpation. Has a history of recurrent breast cysts with drainage. She denies hot flashes. Her [place] [address] [facility],[address], [place], [address], [place] [facility] NIGHT CLERK 08/10/2020 10:58:30 08/10/2020 text/html HPI Notes: Princess is here for follow up for pelvic mass, ultrasound revealed 2 cm right ovarian simple cyst and [place] [address] [facility],[address], [place], [address], [facility] NIGHT CLERK 08/10/2020 10:43:07 03/09/2021 text/html HPI Notes: Annua l Gynecologic Exam This patient presents today for an annual gynecologic exam. She is not having periods Her periods are infrequent secondary to hormonal contraceptive use. The patient denies symptoms of perimenopause. She reports changes to breasts. She notes breast lumps in bilateral breasts. The patient reports vaginal itching. This symptom has been present for 2 weeks. The patient's past medical and surgical history were reviewed again today. The medication and allergy list was made current. Sexual History She is sexually active. The patient reports that she is experiencing no problems with sex. The patient is using contraception to prevent . The patient states that she is satisfied with her current method of control. She denies new partners since last visit. She reports feeling safe in her relationships. The patient declines STD testing today. Healthcare Maintenance The patient's last pap smear was 01/04/2018. I reviewed with the patient today ASCCP guidelines for recommended frequency of pap smear testing. The patient expressed understanding. The patient was notborn between 1945 and 1965. The patient is not due for a bone density scan. Her CAGE screen was negative. The patient's depression screening PHQ-2 Score is 0 and the GIL-7 is 2 The patient has no additional complaints. Recently on abx for dental procedure, feels like she had a yeast infection and treated with OTC Monistat x 2. Helped initially but now feels sx recurring. Also c/o worsening breast lumps. Has known breast cysts and has had them aspirated before. NAZANIN NASH- [address], [place], [address], [facility] NIGHT CLERK 03/09/2021 15:50:41 03/08/2022 text/html HPI Notes: Annua l Gynecologic Exam This patient presents today for an annual gynecologic exam. She is not having periods Her periods are infrequent secondary to hormonal contraceptive use. The patient denies symptoms of perimenopause. She reports changes to breasts. She notes breast lumps in the left breast The patient reports vaginal itching. This symptom has been present for 1 months. The patient's past medical and surgical history were reviewed again today. The medication and allergy list was made current. Sexual History She is sexually active. The patient reports that she is experiencing no problems with sex. The patient is using contraception to prevent . The patient states that she is satisfied with her current method of control. She denies new partners since last visit. She reports feeling safe in her relationships. The patient declines STD testing today. Healthcare Maintenance The patient's last pap smear was 01/04/2018. I reviewed with the patient today ASCCP guidelines for recommended frequency of pap smear testing. The patient expressed understanding. The patient was notborn between 1945 and 1965. The patient is not due for a bone density scan. Her CAGE screen was negative. The patient's depression screening PHQ-2 Score is 0 and the GIL-7 is 1 The patient has no additional complaints. Son is 13, doing well. Thinks she has another breast cyst. 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 TRUONG NASH [address] [facility],[address], [place], [address], [facility] NIGHT CLERK 03/27/2022 12:28:46 08/02/2022 text/html HPI Notes: Breas t Mass (UEHRC) Reported by patient. Right Breast present at 4 o'clock * Quality: well defined; mobile; non tender; size 4 cm * Severity: moderate * Duration: weeks; 1 months * Timing: Onset: gradual * Context: history of breast cysts, drained multiple times TRUONG NASH [address] [facility],[address], [place], [address], [facility] NIGHT CLERK 08/02/2022 12:25:41 06/25/2023 text/html HPI Notes: Santino castellanos Gynecologic Exam This patient presents today for an annual gynecologic exam. She is not having periods Her periods are infrequent secondary to hormonal contraceptive use. The patient denies symptoms of perimenopause. She reports changes to breasts. She notes breast lumps in the left breast - known breast cysts, had mammo last month. The patient's past medical and surgical history were reviewed again today. The medication and allergy list was made current. Sexual History She is sexually active. The patient reports that she is experiencing no problems with sex. The patient is using contraception to prevent . The patient states that she is satisfied with her current method of control. She denies new partners since last visit. She reports feeling safe in her relationships. The patient declines STD testing today. Healthcare Maintenance The patient's last pap smear was 1 year ago. I reviewed with the patient today ASCCP guidelines for recommended frequency of pap smear testing. The patient expressed understanding. Her CAGE screen was negative. The patient's depression screening PHQ-2 Score is 0 and the GIL-7 is 1 The patient has the following additional complaints. Feels twinges in lower pelvis occasionally for the last 6 weeks or so. Both sides, left more than right. Son is 14, started high school. Doing ok. More stressful. 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 [facility] [address] [facility],[address], [place], [address], [facility] NIGHT CLERK 06/25/2023 17:41:19 07/02/2023 text/html HPI Notes: The patient was seen for an ultrasound today for pelvic pain with IUD The ultrasound today was significant for IUD in central endometrial canal, arms extended at fundus, R arm in myometrium 3 mm. Several small intramural fibroids. Left bilobed ovarian cyst 3.1 x 2.9 x 1.2 cm. TRUONG NASH [address] [facility],[address], [place], [address], [facility] NIGHT CLERK 07/02/2023 14:18:53 OBGyn Episode Ob Episode Information Episode Created Date Number of Fetuses Patient Bloodtype Patient rh Status Prepregnancy Weight lbs Domestic Partner Domestic Partner Phone Father Name Confectionery Maker Status 08/05/20 20 1 CLOSED Fetus Data First Name Last Name Admitted to NICU Weight (g) Sex Living Outcome Pediatric Complications Fetus ID Race Codes Race Delivery Type 3515.33 8 M Full Term [id number] Tyler Calculation Initial Tyler Date Initial Exam Date Initial Exam Provider Initial Ultrasound Date Last Menstrual Period Date Ultra Sound Weeks Gestation 0 Eighteen To Twenty Week Tyler Update Ultra Sound Date Fundal Height At Umbil Quickening Date Ultra Sound Latest Weeks Gestation Final Tyler Confirmed By Final Tyler Confirmed Date Final Tyler Date Ultra Sound Latest Days Gestation 0 0 Menstrual History Last Menstrual Date Menses Monthly On Bcp Conception Prior Menses Frequency Hcg Plus Date Menarche Onset Age Delivery Information Delivery Date Delivery Type Labor Anesthesia Weeks Gestation Incision Type Labor Labor Length Hrs Delivered By Post Complications Tubal Sterilization Discharge Date Comments 9 39 Discharge Information Feeding Method Contraceptive Method Maternal HG B and HCT Levels
--- OUTSIDE RECORDS SUMMARY | 2023-11-03 10:26 | XMS_ITS | Referral Summary ---
Author Name Unknown Organization [place] Address [facility] [place] [address] Care Team Providers Care Airport Skilled Maintenance Supervisor Name Role Phone Logeais, Alda BEST Unavailable Logeais, Alda BEST Primary Care Provider [phone] Shy Marks PA-C Unavailable Encounters Date Type Department Care Team Description 08/07/[address] [facility] [address] [phone] None 08/07/2023 [facility] [place] [facility] [address] [phone] [facility] 08/03/[address] [facility] [address] [phone] None 08/03/2023 [facility] [place] [facility] [address] [phone] [facility] from Last 3 Months Allergies Active Allergy Reactions Criticality Noted Date [...] 8 mg by mouth 0 06/28/2022 Active Immunizations Name Administration Dates Next Due COVID-19 MONOVALENT 12+ (Pfizer) 021,02/05/2021,02/03/2021, 021,01/06/2021 Influenza (IIV3) PF 07/24/2011,07/21/2010 Influenza Vaccine >6 months,quad, PF 08/05/2020 TDAP (Adacel,Boostrix) 04/12/2022,07/21/2010 Social History Tobacco Use Types Packs/Day Years [...] Description 01/02/2024 10:00 AM CDT Office Visit [facility] [address] [facility] [address] [place] [address] Lyssa Delcid MD [address] [place] [address] Care Teams Airport Skilled Maintenance Supervisor Relationship Specialty Start Date End Date Alda Hawkins MD [address] [place] [id number] PCP - General Internal Medicine 04/30/23 Alda Hawkins MD [address] [place] [address] Assigned PCP 03/23/22 Shy Marks PA-C [address] [place] [address] Assigned Surgical Provider 05/26/23
--- OUTSIDE RECORDS SUMMARY | 2023-11-03 10:26 | XMS_ITS | Encounter Summary ---
Author Name Unknown Organization [place] Address [address] [facility] [place] [address] Care Team Providers Care Educational Therapist Name Role Phone LogeaAlda martinez MD Unavailable Matthew Ayala OD Unavailable [phone] LogeaisAlda MD Primary Care Provider [phone] Encounter Details Date Type Department Care Team (Late st Contact Info) Description 04/30/2023 7:30 AM CDT Orders [address] [place] [address] Encounter for preventative adult health [...] AM CDT documented as of this encounter Progress Notes * Clair Angulo CMA - 04/30/2023 7:30 AM CDT Janis Borrero comes into clinic today at the request of Dr. Klaudia Duval Ordering Provider for EKG. This service provided today was under the supervising provider of the day Barrett Duval, who was available if needed. Clair Angulo CMA documented in this encounter Plan of Treatment Upcoming Encounters Date Type Department Care Team (Late st Contact Info) Description 01/02/2024 10:00 AM CDT Office Visit [facility] [address] [place] [address] Lyssa Delcid MD [address] [place] [address] documented as of this encounter Procedures Procedure Name Priority Date/Time Associated Diagnosis Comments EKG 12-LEAD, TRACING ONLY Routine 04/30/2023 7:51 AM CDT Encounter for preventative adult health care examination documented in this encounter Results * EKG 12-lead, tracing only (04/30/2023 7:51 AM CDT) Systolic Blood Pressure mmHg RADIOLOGY RESULTS Diastolic Blood Pressure mmHg RADIOLOGY RESULTS Ventricular Rate 61 BPM RAD IOLOGY RESULTS Atrial Rate 61 BPM RADIOLOG Y RESULTS WV Interval 144 ms RADIOLOG Y RESULTS QRS Duration 96 ms RADIOLO GY RESULTS QT 414 ms RADIOLOGY RESULTS QTc 416 ms RADIOLOGY RESULTS P Orr 47 degrees RADIOLOGY RESULTS R AXIS 58 degrees RADIOLOGY RESULTS T Orr 40 degrees RADIOLOGY RESULTS Interpretation ECG Sinus rhythm Normal ECG When compared with ECG of 12-APR-2022 07:17, No significant change was found Confirmed by fellow Robbie Goins ([id number]) on 05/01/2023 11:30:02 AM Confirmed by MD ZAMBRANO DAVID ([id number]) on 05/01/2023 3:30:21 PM RADIOLOGY RESULTS 04/30/2023 7:51 AM CDT 05/01/2023 3:30 PM CDT Darien Duval MD ECG ORDERABLES RADIOLOGY RESULTS documented in this encounter Visit Diagnoses Diagnosis Encounter for preventative adult health care examination documented in this encounter Care Teams Educational Therapist Relationship Specialty Start Date End Date Alda Hawkins MD [address] [place] [address] PCP - General Internal Medicine 04/30/23 Alda Hawkins MD [address] [place] [address] Assigned PCP 03/23/22 Matthew Ayala OD [address] [place] [phone] Assigned Surgical Provider 02/10/23 documented as of this encounter
--- OUTSIDE RECORDS SUMMARY | 2023-11-03 10:26 | XMS_ITS | Encounter Summary ---
Author Name Unknown Organization [place] Address [address] [facility] [place] [address] Care Team Providers Care Director Of Health Care Marketing Name Role Phone Logeais, Alda BEST Unavailable Logeais, Alda BEST Primary Care Provider [phone] Shy Marks PA-C Unavailable Encounter Details Date Type Department Care Team (Late st Contact Info) Description 08/03/2023 Telephone [facility] [address] [place] [address] None Social History Tobacco Use [...] Telephone Encounter - Oriana Patrick - 08/03/2023 12:56 PM CDT Patient call: Appointment type: NEW ENDOCRINE Provider: ANY Return date: FIRST AVAILABLE Speciality phone number: [phone] Additional appointment(s) needed: Additional notes: LVM AND SENT MYC X1 Oriana Patrick on 08/03/2023 at 12:57 PM documented in this encounter Plan of Treatment Upcoming Encounters Date Type Department Care Team (Late st Contact Info) Description 01/02/2024 10:00 AM CDT Office Visit [facility] [address] [facility] [address] [place] [phone] Lyssa Delcid MD [address] [facility] [address] [place] [address] documented as of this encounter Visit Diagnoses Not on filedocumented in this encounter Care Teams Director Of Health Care Marketing Relationship Specialty Start Date End Date Alda Hawkins MD [address] [place] [address] PCP - General Internal Medicine 04/30/23 Alda Hawkins MD [address] [place] [address] Assigned PCP 03/23/22 Shy Marks PA-C [address] [place] [address] Assigned Surgical Provider 05/26/23 documented as of this encounter
--- OUTSIDE RECORDS SUMMARY | 2023-11-03 10:26 | XMS_ITS | Encounter Summary ---
Author Name Unknown Organization [place] Address [address] [facility] [place] [address] Care Team Providers Care Slitter Creaser Slotter Operator Name Role Phone Logeais, Alda BEST Unavailable Logeais, Adla BEST Primary Care Provider [phone] Shy Marks PA-C Unavailable Reason for Referral * Consultation (Routine: Next available opening) - Pending Review Specialty Diagnoses / Procedures Referred By Brayan buenrostro Referred To Contact Endocrinology, Diabetes, and Metabolism Diagnoses Family history of thyroid disease in mother Family history thyroid disease in brother Family history of thyroid disease in grandmother Fatigue, unspecified type Darien Dvual MD [address] [place] [address] [place] [address] Referral ID Status Reason Start Date Expiration Date V isits Requested Visits Authorized [id number] Pending Review 07/31/2023 07/30/2024 1 1 Question Answer Reason for Referral: Thyroid Scheduling Instructions: [facility] will call you to coordinate your care as prescribed by the provider. If you don? t hear from a clearance representative within 2 business days, please call [phone]. Additional Information: 42-y.o. woman requests evaluation of thyroid in setting of strong FHx (M with Luis's; Brother & Grandmother with unspecified thyroid disease); ongoing fatigue with normal sleep study and TSH. Thank you! persistent fatigue with normal Comments Please be aware that coverage of these services is subject to the terms and limitations of your health insurance plan. Call member services at your health plan with any benefit or coverage questions. [facility] to coordinate your care as prescribed by the provider. If you don? t hear from a clearance representative within 2 business days, please call [phone]. Encounter Details Date Type Department Care Team (Late st Contact Info) Description 07/31/2023 MyC Medical Advice [facility] [place] [address] [facility] [address] 5th [place] [address] Darien Duval MD [address] [facility] [address] [place], [place] [id number] Family history of thyroid disease in mother (Primary Dx); Family history thyroid disease in brother; Family history of thyroid disease in grandmother; Fatigue, unspecified type Social History Tobacco Use Types Packs/Day Years [...] Description 01/02/2024 10:00 AM CDT Office Visit [facility] [address] [place] [phone] Lyssa Delcid MD [address] [place] [address] Scheduled Referrals Name Type Priority Associated Diagnoses Orde r Schedule Adult Endocrinology Automatic Blocker Referral Referral Routine: Next available opening Family history of thyroid disease in mother Family history thyroid disease in brother Family history of thyroid disease in grandmother Fatigue, unspecified type Expected: 07/31/2023 (Approximate), Expires: 07/31/2024 documented as of this encounter Visit Diagnoses Diagnosis Family history of thyroid disease in mother- Primary Family history thyroid disease in brother Family history of thyroid disease in grandmother Fatigue, unspecified type documented in this encounter Care Teams Slitter Creaser Slotter Operator Relationship Specialty Start Date End Date Alda Hawkins MD [address] [place] [phone] PCP - General Internal Medicine 04/30/23 Alda Hawkins MD [address] [place] [address] Assigned PCP 03/23/22 Shy Marks PA-C [address] [place] [address] Assigned Surgical Provider 05/26/23 documented as of this encounter
--- OUTSIDE RECORDS SUMMARY | 2023-11-03 10:27 | XMS_ITS | Encounter Summary ---
Author Name Unknown Organization [place] Address [address] [place] [address] Care Team Providers Care Director Of Payroll Name Role Phone Logeais, Alda BEST Unavailable Matthew Ayala OD Unavailable Reason for Referral * Nutrition (Routine) - Pending Review Specialty Diagnoses / Procedures Referred By Contac t Referred To Contact Diagnoses Encounter for preventative adult health care examination Darien Duval MD [address] [place], [place] [address] Referral ID Status Reason Start Date Expiration Date V isits Requested Visits Authorized Pending Review 04/25/2023 04/24/2024 1 1 Question Answer Nutritional instruct Other - use Comments Comments General Nutrition * Audiology (Routine: Next available opening) - Pending Review Specialty Diagnoses / Procedures Referred By Brayan buenrostro Referred To Contact Audiology Diagnoses Encounter for preventative adult health care examination Darien Duval MD [address] [place] [phone] Referral ID Status Reason Start Date Expiration Date Visits Requested Visits Authorized Pending Review Assess and Evaluate 04/25/2023 04/24/2024 1 1 Question Answer Reason for Referral: Hearing and Ear Services: Audiogram (Hearing Test with Tymps and Reflexes) Scheduling Instructions: [facility] will call you to coordinate your care as prescribed by the provider. If you don? t hear from a desk representative within 2 business days, please call . Comments Patient already scheduled. Do not call. Thank you. [facility] will call you to coordinate your care as prescribed by the provider. If you don? t hear from a desk representative within 2 business days, please call . * Diagnostic Imaging Dexa (Routine) - Pending Review Specialty Diagnoses / Procedures Referred By Contac t Referred To Contact Radiology. Diagnoses Encounter for preventative adult health care examination Procedures DX Hip/Pelvis/Spine Darien Duval MD [address] [place] [address] [place] [phone] Referral ID Status Reason Start Date Expiration Date V isits Requested Visits Authorized [id number] Pending Review 04/25/2023 04/24/2024 1 1 Reason for Visit * Reason Comments Pre Visit Planning - Done Encounter Details Date Type Department Care Team (Latest Contact Info) Description 04/25/2023 9:05 AM CDT Virtual Visit [address] 5th [place] [address] Encounter for preventative adult health care examination (Primary Dx) Social History Tobacco Use Types Packs/Day Years Used Date Smoking Tobacco: Never Smokeless Tobacco: Never Humiliation, Afraid, Rape, and Kick questionnair e Answer Date Recorded Within the last year, have y ou been afraid of your partner or ex-partner? No 04/12/2022 Within the last year, have y ou been humiliated or emotionally abused in other ways by your partner or ex-partner? No Within the last year, have y ou been kicked, hit, slapped, or otherwise physically hurt by your partner or ex-partner? No 04/12/2022 Within the last year, have y ou been raped or forced to have any kind of sexual activity by your partner or ex-partner? No 04/12/2022 PHQ-2 Answer Date Recorded PHQ-2 Score 0 04/12/2022 Sex and Gender Information Value Date Recorded Sex Assigned at Female 04/04/2022 4:51 PM CDT Gender Identity Female 04/04/2022 4:51 PM CDT Sexual Orientation Straight 04/04/2022 4: 51 PM CDT documented as of this encounter Progress Notes * Clair Angulo, [facility] - 04/25/2023 9:05 AM CDT Health Maintenance: Do you have a PCP? Yes When was your last visit with your PCP? When was your last eye exam? 02/27 Have you ever had a colonoscopy? If yes, when? Have you ever had any polyps removed? If Female: (25 years old+) When was your last pap smear ? 03/29 Have you ever had abnormal pap smear results? (40 years old+) When was your last mammogram? 03/29 If last mammogram was more than 1 year ago and patient would like to get mammogram done as part of their visit, ask the following questions: 1. Do you have any current or new breast problems? No 2. Where was your last mammogram done? [facility] 3. Have your had any breast surgeries? No As part of your visit we will set up a DEXA scan which will measure your body composition. We have a few questions that need to be answered before we can schedule this scan: What is your approximate weight? 165 Have you ever had a DEXA scan within the past 2 years? Yes Will you have any other imaging studies with contrast (x-ray, CT scan) within 7 days of this appointment? No Have you had any spine or hip surgery? No Do you take any vitamins that contain calcium or antacids with calcium? No If yes, stop taking 24 hours prior to visit. Goals for the Visit: 1. Thorough Comprehensive Preventive Exam 2. 3. Pertinent past Medical/Family and Social HX: Pertinent sx that desire are addressed with this visit: Instructions prior to appointment: 1. Fast beginning at 10 pm for lab appointment 2. If your preventive care assessment package includes a Fitness Assessment, please bring athletic shoes. Complementary [facility] fitness attire is provided and yours to keep. 3. If eye exam, eyes may be dilated, it will last 4-6 hours, may want to bring sunglasses. 4. May bring laptop or other work materials for use during downtime. 5. You will receive an email about 3 days prior to your visit with a final itinerary, menu selections for the complementary breakfast and lunch and instructions for the visit. [employer] Parking provided. Drop off car in front of [facility], take the patient elevators to the [facility] clinic. When you enter in the lobby, identify yourself as an [facility] [atient and you will be escorted up to the clinic. If questions arise prior to your appointment please contact the clinic at [phone]. documented in this encounter Plan of Treatment Upcoming Encounters Date Type Department Care Team (Late st Contact Info) Description 01/02/2024 10:00 AM CDT Office Visit [facility] [address] [place] [address] Lyssa Delcid MD [address] [place] [address] [address] [place] [address] Pending Results Name Type Priority Associated Diagnoses Date /Time VO2Max Fitness Assessment PFT Routine Encounter for preventative adult health care examination 04/30/2023 8:56 AM CDT Scheduled Referrals Name Type Priority Associated Diagnoses Orde r Schedule Adult Audiology Information Analyst Referral Referral Routine Encounter for preventative adult health care examination Expected: 04/30/2023, Expires: 04/07/2024 Nutrition Referral Referral Routine Encounter for preventative adult health care examination Expected: 04/30/2023, Expires: 04/07/2024 documented as of this encounter Results * DX Hip/Pelvis/Spine (04/30/2023 10:34 AM CDT) Anatomical Region Laterality Modality Dexa Bone Mineral Den sity Narrative 05/07/2023 1:13 PM CDT Images from the original result were not included. [address] [address] Phone: ?? Fax: Impression The most negative and valid Z-score of 0.4 at the level of the left femoral neck is WITHIN normal range according to WHO criteria for premenopausal females and men age less than 50. Results Lumbar spine Z-score 1.3 , BMD 1.386 g/cm2. Left Femur neck Z-score 0.4 , BMD 1.062 g/cm2. Left Total hip Z-score 0.7 , BMD 1.093 g/cm2. Right Femur neck Z-score 0.9, BMD ??1.128 g/cm2. Right Total hip Z-score 0.8 , BMD ??1.111 g/cm2. Interval change Bone density compared to the prior study has changed at lumbar spine by -2.3%, at the right total femur by -1.3%. Ref 3 Percent changes not mentioned or within remaining regions are insignificant Please note that the differential diagnosis of BMD increase in the spine includes improvement due to pharmacotherapy vs inter-current progression of spine degeneration or fracture Fracture risk Fracture risk calculation is not indicated. Ref.4 FRAX may not accurately predict risk in patient on bisphosphonate and should not be used to assess the reduction in fracture risk in patients on treatment The risk of osteoporotic fracture increases approximately 2-fold for each 1.0 SD decrease in T-score. Low bone density is not the only risk factor for fracture; consider factors such as patient's age, fall risk, injury risk, previous osteoporotic fracture, family history of osteoporosis, etc. ?? Repeat For patients eligible for Medicare, routine testing is allowed once every 2 years. Testing frequency can be increased for patients on corticosteroids. Clinical correlation recommended Technical quality Satisfactory. Principal result barge captain: Carmen Pardo MD, [facility] Division of Endocrinology and Diabetes ?? Department of Medicine References: Ref. 1. WHO categories: ? T-score > -1.0 ??= normal ? . ? T-score -1.0 to -2.5 = low bone density T-score < -2.5 = osteoporosis ?. Ref. 2. 2014 ISCD official position statements: ??www.iscd.org. Ref. 3. ??Today's examination is compared to the technically similar prior study of the total hip and femur if available. Only changes deemed likely to be significant based on historical data are reported. According to the ISCD position statements, total hip rather than femoral neck regions are to be compared because larger areas give better precision. LSC = least significant changes at the [facility] (historical data) AP spine = ??0.032 g/cm2 ??(04/02/2007) Left hip = 0.029 g/cm2 ??(03/22/2007) Right hip = 0.018 g/cm2 ??(03/22/2007) Left mid radius = 0.043 g/cm2 ??(04/02/2007) Please note that the differential diagnosis of increase in bone density at the lumbar spine includes improvement due to pharmacotherapy vs inter-current progression of spine degeneration or fracture. Ref. 4 Fracture risk is calculated in patients aged 40 to 90 years old with low bone density not on osteoporosis treatment. A 10 year fracture risk of 3% and higher for hip fracture and 20% and higher for major osteoporotic fracture is considered higher than acceptable risk and might be an indication for medical treatment. Ref. 5. ??By definition, osteoporosis may be diagnosed in the presence or with the history of a low trauma or fragility fracture. ??Fragility and low trauma fracture is defined as a fracture resulting from the force of a fall from a standing height or less or a bone that breaks under conditions that would not cause a normal bone to break. ?? Ref. 6. NOF Physician's Guideline Website address: ??www.nof.org. Darien Duval MD IMG DEXA ORDER TRACEE * PFT General Lab Testing (04/30/2023 10:25 AM CDT) [facility] FVC-Pred 3.84 L BREEZE PFT FVC-Pre 3.77 L BREEZE PFT FVC-%Pred-Pre 98 % BREEZE PFT FEV1-Pre 3.03 L BREEZE PFT FEV1-%Pred-Pre 96 % [place]REEZE PFT [id number] 82 % BREEZE PFT [id number] 80 % BREEZE PFT FEFMax-Pred 7.57 L/sec BREEZE PFT FEFMax-Pre 6.52 L/sec BREEZE PFT FEFMax-%Pred-Pr e 86 % BREEZE PFT [id number] 3.20 L/sec BREEZE PFT [id number] 2.90 L/sec BREEZE PFT UOS9530-%Pred-P re 90 % BREEZE PFT ExpTime-Pre 5.42 sec BREEZE PFT FIFMax-Pre 6.02 L/sec BREEZE PFT [id number] 84 % BREEZE PFT [id number] 80 % BREEZE PFT 04/30/2023 10:2 5 AM CDT Narrative BREEZE PFT - 05/01/2023 12:50 PM CDT The FVC, FEV1, FEV1/FVC ratio and NKB59-46% are within normal limits. IMPRESSION: Normal Spirometry Compared with testing from ??04/12/2022 there has been no significant change in the FEV1 or FVC. Stephie Riggins MD ?This interpretation has been electronically signed: ??STEPHIE RIGGINS 05/01/2023 ??12:38:03 PM? Darien Duval MD PFT ORDERABLES BREANNIKA PFT * EKG 12-lead, tracing only (04/30/2023 7:51 AM CDT) Systolic Blood Pressure mmHg RADIOLOGY RESULTS Diastolic Blood Pressure mmHg RADIOLOGY RESULTS Ventricular Rate 61 BPM RAD IOLOGY RESULTS Atrial Rate 61 BPM RADIOLOG Y RESULTS AL Interval 144 ms RADIOLOG Y RESULTS QRS Duration 96 ms RADIOLO GY RESULTS QT 414 ms RADIOLOGY RESULTS QTc 416 ms RADIOLOGY RESULTS P [place] 47 degrees RADIOLOGY RESULTS R AXIS 58 degrees RADIOLOGY RESULTS T [place] 40 degrees RADIOLOGY RESULTS Interpretation ECG Sinus rhythm Normal ECG When compared with ECG of 12-APR-2022 07:17, No significant change was found Confirmed by fellow Robbie Goins ([id number]) on 05/01/2023 11:30:02 AM Confirmed by MD KENYA, LEIGHTON ([id number]) on 05/01/2023 3:30:21 PM RADIOLOGY RESULTS 04/30/2023 7:51 AM CDT 05/01/2023 3:30 PM CDT Darien Duval MD ECG ORDERABLES RADIOLOGY RESULTS * Lipid panel reflex to direct LDL Fasting (04/30/2023 7:50 AM CDT) Cholesterol 168 <200 mg/dL 04/30/2023 8:24 AM CDT [facility] Triglycerides 62 <150 mg/dL 04/30/2023 8:24 AM CDT [facility] Direct Measure HDL 64 >=50 mg/dL 2022 8:24 AM CDT [facility] LDL Cholesterol Calculated 92 <=100 mg/dL 04/30/2023 8:24 AM CDT [facility] Non HDL Cholesterol 104 <130 mg/dL 04/30/2023 8:24 AM CDT [facility] Blood STRUCTURE OF RIGHT UPPER LIMB / Unknown Venipuncture / Unknown 04/30/2023 7:50 AM CDT 04/30/2023 8:00 AM CDT Narrative [facility] - 04/30/2023 8:24 AM CDT Cholesterol Desirable: ??<200 mg/dL Triglycerides Normal: ??Less than 150 mg/dL Borderline High: ??150-199 mg/dL High: ??200-499 mg/dL Very High: ??Greater than or equal to 500 mg/dL Direct Measure HDL Female: ??Greater than or equal to 50 mg/dL Male: ??Greater than or equal to 40 mg/dL LDL Cholesterol Desirable: ??<100mg/dL Above Desirable: ??100-129 mg/dL Borderline High: ??130-159 mg/dL High: ??160-189 mg/dL Very High: ??>= 190 mg/dL Non HDL Cholesterol Desirable: ??130 mg/dL Above Desirable: ??130-159 mg/dL Borderline High: ??160-189 mg/dL High: ??190-219 mg/dL Very High: ??Greater than or equal to 220 mg/dL Darien Duval MD LAB - BLOOD OR DERABLES [facility] - [facility] [address] [place] [address] 1st [place] [address] * Vitamin D Deficiency (04/30/2023 7:50 AM CDT) Vitamin D, Total (25-Hydroxy) 39 20 - 75 ug/L 04/30/2023 12:47 PM CDT [facility] Blood STRUCTURE OF RIGHT UPPER LIMB / Unknown Venipuncture / Unknown 04/30/2023 7:50 AM CDT 04/30/2023 8:00 AM CDT Narrative [facility] - 04/30/2023 12:47 PM CDT Season, race, dietary intake, and treatment affect the concentration of 99-zlaftwj-Tilnwoy D. Values may decrease during winter months and increase during summer months. Values 20-29 ug/L may indicate Vitamin D insufficiency and values <20 ug/L may indicate Vitamin D deficiency. Vitamin D determination is routinely performed by an immunoassay specific for 25 hydroxyvitamin D3. ??If an individual is on vitamin D2(ergocalciferol) supplementation, please specify 25 OH vitamin D2 and D3 level determination by LCMSMS test VITD23. Darien Duval MD LAB - BLOOD OR DERABLES [facility]Prot[facility]Endo [address] [facility] [address], Room [address] [phone] * TSH (04/30/2023 7:50 AM CDT) TSH 1.52 0.30 - 4.20 uIU/mL 04/30/2023 8:45 AM CDT [facility] Blood STRUCTURE OF RIGHT UPPER LIMB / Unknown Venipuncture / Unknown 04/30/2023 7:50 AM CDT 04/30/2023 8:00 AM CDT aDrien Duval MD LAB - BLOOD OR DERABLES Performing Organization Address City/[facility]/ZIP Co de Phone Number [facility] [address] 1st [place] [address] * Glucose (04/30/2023 7:50 AM CDT) Glucose 91 70 - 99 mg/dL 04/30/2023 8:24 AM CDT [facility] Patient Fasting > 8hrs? Unknown 04/30/2023 8:24 AM CDT [facility] Blood STRUCTURE OF RIGHT UPPER LIMB / Unknown Venipuncture / Unknown 04/30/2023 7:50 AM CDT 04/30/2023 8:00 AM CDT Darien Duval MD LAB - BLOOD OR DERABLES [facility] [address] 1st [place] [address] * (ABNORMAL) Creatinine (04/30/2023 7:50 AM CDT) Creatinine 1.05(H) 0.51 - 0.95 mg/dL 04/30/2023 8:24 AM CDT [facility] GFR Estimate 68 >60 mL/min/1.7 3m2 04/30/2023 8:24 AM CDT [facility] Blood STRUCTURE OF RIGHT UPPER LIMB / Unknown Venipuncture / Unknown 04/30/2023 7:50 AM CDT 04/30/2023 8:00 AM CDT Darien Duval MD LAB - BLOOD OR DERABLES Performing Organization Address City/[facility] Co de Phone Number [facility] - [facility]ORE LAB [facility] - [address] 1st [place] [address] * Alkaline phosphatase (04/30/2023 7:50 AM CDT) Alkaline Phosphatase 45 35 - 104 U/L 04/30/2023 8:24 AM CDT [facility] Blood STRUCTURE OF RIGHT UPPER LIMB / Unknown Venipuncture / Unknown 04/30/2023 7:50 AM CDT 04/30/2023 8:00 AM CDT Darien Duval MD LAB - BLOOD OR DERABLES Performing Organization Address [facility] Co de Phone Number [facility] - [address] [place] [address] * ALT (04/30/2023 7:50 AM CDT) ALT 10 0 - 50 U/L 04/30/2023 8:24 AM CDT [facility] Comment:Reference intervals for this test were updated on 03/19/2023 to more accurately reflect our healthy population. There may be differences in the flagging of prior results with similar values performed with this method. Interpretation of those prior results can be made in the context of the updated reference intervals. Blood STRUCTURE OF RIGHT UPPER LIMB / Unknown Venipuncture / Unknown 04/30/2023 7:50 AM CDT 04/30/2023 8:00 AM CDT Darien Duval MD LAB - BLOOD OR DERABLES Performing Organization Address City/[facility]/ZIP Co de Phone Number [facility]ORE [facility] - [address] 1st [place] [address] * HIV Antigen Antibody Combo [[id number]] (04/30/2023 7:50 AM CDT) HIV Antigen Antibody Combo Nonreactive Nonreactive 04/30/2023 12:41 PM CDT [facility] DO Comment:HIV-1 p24 Ag & HIV-1 /HIV-2 Ab Not Detected Blood STRUCTURE OF RIGHT UPPER LIMB / Unknown Venipuncture / Unknown 04/30/2023 7:50 AM CDT 04/30/2023 8:00 AM CDT Darien Duval MD LAB - BLOOD OR DERABLES [facility]PROT/ENDO Specialty Core/Prot/Endo [address] [facility], [address] [place] [address] documented in this encounter Visit Diagnoses Diagnosis Encounter for preventative adult health care examination- Primary Encounter for preventative adult health care examination Encounter for preventative adult health care examination documented in this encounter Care Teams Director Of Payroll Relationship Specialty Start Date End Date Alda Hawkins MD [address] [address] Assigned PCP 03/23/22 Matthew Ayala OD [address] [phone] Assigned Surgical Provider 02/10/23 documented as of this encounter
--- OUTSIDE RECORDS SUMMARY | 2023-11-03 10:27 | XMS_ITS | Encounter Summary ---
Author Name Unknown Organization [facility] Address [address] [facility] [place] [address] Care Team Providers Care Underground Mine Superintendent Name Role Phone LogeaisAlda MD Unavailable Matthew Ayala OD Unavailable [phone] LogeaisAlda MD Primary Care Provider [phone] Reason for Visit * Reason Comments Nutrition Counseling Encounter Details Date Type Department Care Team (Latest Contact Info) Description 04/30/2023 11:30 AM CDT Office Visit [facility] [address] [place] [address] Valerie Maza, RD [address] [place] [address] Encounter for preventative adult health care examination [...] Recorded In the last 10 days, have hunter james been in contact with someone who was confirmed or suspected to have Coronavirus/COVID-19? No / Unsure 04/30/2023 7:11 AM CDT documented as of this encounter Patient Instructions * Patient Instructions* Valerie Maza, RD - 04/30/2023 11:30 AM CDT Nutrition Recommendations Try switching your yogurt back to your usual yogurt or can try a lactose free option to see if better tolerated. (nelly makes a lactose free option). At breakfast if your usual yogurt is not tolerated/still having abdominal pain, can switch and havesome eggs, vegetables and slice of whole grain toast for example. If your regular yogurt is tolerated, then add some fruit into your yogurt along with granola for a more balanced breakfast meal. Can add in some oscar seeds, flaxseeds or a few nuts for some additional fiber. If you continue to have stomach pain, can try a lactose free diet for at least 2 weeks to see if any improvement in symptoms. Decrease soda with goal of eliminating/limiting the amount you drink. Can start by only having sodahalf of the week such as every other day to start and then continue to reduce the number of days from there. Aim for taking a walk daily on a work break to see if this helps relieve some constipation and stomach issues. Avoid sugar alcohols which are sugar substitutes such as sorbitol, xylitol, mannitol, maltitol, erythritol, isomalt, lactitol. These can be found in some sugar free candies, drinks, gums and sugar free protein bar, some vitamin water zero drinks, Marcella drinks, some sugar free gums such as Trident andsome protein bars such as Quest protein bars and some sugar free yogurts. Some other sugars that may cause stomach pain/bloating/issues include high fructose corn syrup, agave syrup, honey. Limit/avoid these sweeteners. Continue following your Noom program and keeping journals with this program. Thank you, Valerie Maza MS, RD, LD documented in this encounter Progress Notes * Valerie Maza RD - 04/30/2023 11:30 AM CDT [facility] Outpatient Medical Nutrition Therapy Time Spent: 50 minutes Session Type: Follow up Referral Source: [facility] Package: Alda Hawkins MD Reason for RD Visit: Nutritional counseling Nutrition Assessment: Patient is a 42 y.o. female who is here for follow up annual visit with Registered Dietitian (LEONIE). At initial visit, she stated that she has been experience more fatigue over the past couple of months but uncertain why. She follows with a clay caster for polycytic kidney disease and stated that her doctors did some medication adjustments but this didn't change her symptom. She might be a littlemore stressed with work but that goes up and down and nothing too significant. She sleeps 8-9 hoursa night. She drinks a lot of water b/c her medication for her kidneys makes her very thirsty, so she has to get up to use the bathroom 1-2 times but is able to go right back to sleep. She wears a watch that tracks her sleep but she is uncertain how to read it specifically. Most recently it gave leodan 75 out of 100 for sleep. She eats 3 meals per day and a snack at night. 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 She drinks 3 cups coffee with sweetened half and half per day and has a Dr. Oneal when out to eat for dinner. She also drinks a lot of water and estimated drinking 6-7 x 32 oz water bottles per day (192-224 oz per day). She only has about 2 alcoholic drinks per month (1 drink every other week). Due to feeling more fatigued, she started trying to eat better and now having more salads along with hard boiled eggs and fruit at lunch, occasional grilled cheese and fries but trying to do this less as was having this more often in recent past. She has a long stretch between lunch and dinner at least 6-7 hours but then very hungry by dinner time. At follow up visit today 04/30/23, she stated that she started using the Noom program 3 weeks ago. She started the program to aim for eating a healthier diet. She would like to lose a little bit of weight as well but her primary purpose for starting the program was to eat better. Since then she has been eating more salads and now having yogurt with granola for breakfast. She is eating a lite and fit yogurt. Since starting the program, she has noticed more stomach pain and also having constipation where she may go several days without a bowel movement. She previously did not have stomach issuesso wondering if the yogurt or salads were an issue. She previously only occasionally had yogurt as an afternoon snack and used regular yoplait but now having lite and fit yogurt daily. Due to her kidney medication she gets very thirsty so drinking a lot of water and estimated drinks about 200 oz per day. She continues to eat out for all dinner meals. She drinks Dr. Oneal when out to eat daily. She would like to decrease this. She found out after last visit that her had sleep apnea and now using a C pap, so her sleep is getting better. He used to wake her up often with moving and snoring but now it is better since he started on Cpap. She stated that she also had a sleep study and which was normal. She still has some fatigue but better now since last year's visit. She initially increased her exercise but and was taking 2 fitness classes per week but with summer, now only taking 1fitness class per week, walking for 10-15 minutes with co worker, ~3 times per week and about 2x/week using her rowing machine at home. Before starting Noom she was eating more bread and making some different dinner meal choices while out, so trying to make healthier choices when eating out. Estimated body mass index is 25.54 kg/m?? as calculated from the following: Height as of an earlier encounter on 04/30/23: 1.727 m (5' 8). Weight as of an earlier encounter on 04/30/23: 76.2 kg (168 lb). Diet Recall: (some usual meals, beverages and snacks) Meal Food Breakfast Lite and fit yogurt with granola Lunch Chicken caesar salad or avocado krishna with ranch or salad with chicken or hummus, carrots, sam, fruit and HB egg Dinner Sit down restaurant: roasted chicken, baked potato and steamed veg or salad with protein or occas quesadila, chips and salsa Snacks During the day: handful trail mix or string cheese. About 2x/week in Evening snack: popcorn Beverages 2 x 12 oz coffee with sweetened half and half, Dr pepper with dinner and ~200 oz water per day. Alcohol Intake About 1-2 drink per week. Lately 100 benny can of Super Grain drink Frequency of eating/taking out meals: 7 nights per week for dinner. Trying to make healthier choices when eating out Labs: Last Comprehensive Metabolic Panel: Glucose Date Value Ref Range Status 04/30/2023 91 70 - 99 mg/dL Final 04/12/2022 83 70 - 99 mg/dL Final Creatinine Date Value Ref Range Status 04/30/2023 1.05 (H) 0.51 - 0.95 mg/dL Final GFR Estimate Date Value Ref Range Status 04/30/2023 68 >60 mL/min/1.73m2 Final CBC RESULTS: Recent Labs Lab Test 04/12/22 0726 WBC 6.0 RBC 4.52 HGB 13.6 HCT 41.4 MCV 92 MCH 30.1 MCHC 32.9 RDW 12.9 PLT 230 Pertinent Medications/vitamin and mineral supplements: Current Outpatient Medications Medication ??? candesartan (ATACAND) 8 MG tablet ??? escitalopram (LEXAPRO) 10 MG tablet ??? levonorgestrel (MIRENA) 20 MCG/DAY IUD ? ? Tolvaptan (JYNARQUE) 30 & 15 MG TBPK No current facility-administered medications for this visit. Food Allergies: luis alfredo Physical Activity: Fitness class 1x/week, 2x/week rowing machine at home and 3x/week walk at work for 10-15 minutes. Nutrition Prescription: Recommended general healthful diet Nutrition Intervention: Nutrition Education/Counseling: -Provided general healthful diet nutrition education review with some specific tips and ideas/suggestions. Answered patient's questions. Patient verbalized understanding of education provided. Educational Materials Provided: [employer] Daily Nutrition Plate method handout Goals: 1. Try switching your yogurt back to your usual yogurt or can try a lactose free option to see if better tolerated. (nelly makes a lactose free option). 2. At breakfast if your usual yogurt is not tolerated/still having abdominal pain, can switch and have some eggs, vegetables and slice of whole grain toast for example. 3. If your regular yogurt is tolerated, then add some fruit into your yogurt along with granola fora more balanced breakfast meal. Can add in some oscar seeds, flaxseeds or a few nuts for some additional fiber. 4. If you continue to have stomach pain, can try a lactose free diet for at least 2 weeks to see ifany improvement in symptoms. 5. Decrease soda with goal of eliminating/limiting the amount you drink. Can start by only having soda half of the week such as every other day to start and then continue to reduce the number of daysfrom there. 6. Aim for taking a walk daily on a work break to see if this helps relieve some constipation and stomach issues. 7. Avoid sugar alcohols which are sugar substitutes such as sorbitol, xylitol, mannitol, maltitol, erythritol, isomalt, lactitol. These can be found in some sugar free candies, drinks, gums and sugarfree protein bar, some vitamin water zero drinks, Marcella drinks, some sugar free gums such as Trident and some protein bars such as Quest protein bars and some sugar free yogurts. 8. Some other sugars that may cause stomach pain/bloating/issues include high fructose corn syrup, agave syrup, honey. Limit/avoid these sweeteners. 9. Continue following your Noom program and keeping journals with this program. Nutrition Monitoring and Evaluation: Will monitor adherence to nutrition recommendations at future RD visits. Further Medical Nutrition Therapy: Annual visits Patient was encouraged to call/contact RD with any further questions. Valerie Maza MS, RD, LD documented in this encounter Plan of Treatment Upcoming Encounters Date Type Department Care Team (Late st Contact Info) Description 01/02/2024 10:00 AM CDT Office Visit [facility] [address] [place] [phone] Lyssa Delcid MD [address] [place] [address] documented as of this encounter Visit Diagnoses Diagnosis Encounter for preventative adult health care examination documented in this encounter Care Teams Underground Mine Superintendent Relationship Specialty Start Date End Date Alda Hawkins MD [address] [id number] PCP - General Internal Medicine 04/30/23 Alda Hawkins MD [address] [id number] Assigned PCP 03/23/22 Matthew Ayala OD [address] [phone] Assigned Surgical Provider 02/10/23 documented as of this encounter
--- OUTSIDE RECORDS SUMMARY | 2023-11-03 10:27 | XMS_ITS | Encounter Summary ---
Author Name Unknown Organization [facility] Address [address] [facility] [place] [address] Care Team Providers Care Gas Compressor Operator Name Role Phone LogeaisAlda MD Unavailable Matthew Ayala OD Unavailable [phone] LogeaisAlda MD Primary Care Provider [phone] Reason for Visit * Reason Comments Derm Problem FBSC. Princess reports spot of concern on back. Encounter Details Date Type Department Care Team (Late st Contact Info) Description 04/30/2023 1:00 PM CDT Office Visit [facility] [address] [place] [address] Shy Marks PA-C [address] [place] [address] Multiple benign nevi (Primary Dx); Seborrheic keratosis; Solar lentigo; Ruiz angioma; Skin cancer screening; Inflamed seborrheic keratosis Social History Tobacco Use Types Packs/Day Years [...] this encounter Patient Instructions * Patient Instructions* Shy Marks PA-C - 04/30/2023 1:00 PM CDT Images from the original note were not included. Cryotherapy What is it? Use of a very cold liquid, such as liquid nitrogen, to freeze and destroy abnormal skin cells that need to be removed What should I expect? Tenderness and redness A small blister that might grow and fill with dark purple blood. There may be crusting. More than one treatment may be needed if the lesions do not go away. How do I care for the treated area? Gently wash the area with your hands when bathing. Use a thin layer of Vaseline to help with healing. You may use a Band-Aid. The area should heal within 7-10 days and may leave behind a pink or physical plant employee color. Do not use an antibiotic or Neosporin ointment. You may take acetaminophen (Tylenol) for pain. Call your doctor if you have: Severe pain Signs of infection (warmth, redness, cloudy yellow drainage, and or a bad smell) Questions or concerns Who should I call with questions? [facility]: [phone] [facility]: [phone] For urgent needs outside of business hours call the [facility] at [phone] and ask for thedermatology resident underwriting operations manager Checking for Skin Cancer You can help find cancer early by checking your skin each month. There are 3 main kinds of skin cancer: melanoma, basal cell carcinoma, and squamous cell carcinoma. Doing monthly skin checks is the best way to find new davila, sores, or skin changes. Follow these instructions for checking your skin. The ABCDEs of checking moles for melanoma Check your moles or growths for signs of melanoma using ABCDE: Asymmetry: The sides of the mole or growth don???t match. Border: The edges are ragged, notched, or blurred. Color: The color within the mole or growth varies. It could be black, brown, eng, white, or shades of red, salazar, or blue. Diameter: The mole or growth is larger than ?? inch or 6 mm (size of a pencil eraser). Evolving: The size, shape, texture, or color of the mole or growth is changing. ABCDE's of moles on light skin. ABCDE's of moles on dark skin may be harder to identify. Checking for other types of skin cancer Basal cell carcinoma or squamous cell carcinoma cause symptoms like: A spot or mole that looks different from all other davila on your skin Changes in how an area feels, such as itching, tenderness, or pain Changes in the skin's surface, such as oozing, bleeding, or scaliness A sore that doesn't heal New swelling, redness, or spread of color beyond the border of a mole Who???s at risk? Anyone of any skin color can get skin cancer. But you're at greater risk if you have: Fair skin that freckles easily and teague instead of tanning Light-colored or red hair Light-colored eyes Many moles or abnormal moles on your skin A long history of unprotected exposure to sunlight or tanning beds A history of many blistering sunburns as a child or teen A family history of skin cancer Been exposed to radiation or chemicals A weakened immune system Been exposed to arsenic If you've had skin cancer in the past, you're at high risk of having it again. How to check your skin Do your monthly skin checkups in front of a full-length mirror. Use a room with good lighting so it's easier to see. Use a hand mirror to look at hard-to-see places like your buttocks and back. You can also have a trusted friend or family member help you with these checks. Check every part of your body, including your: Head (ears, face, neck, and scalp) Torso (front, back, sides, and under breasts) Arms (tops, undersides, and armpits) Hands (palms, backs, and fingers, including under the nails) Lower back, buttocks, and genitals Legs (front, back, and sides) Feet (tops, soles, toes, including under the nails, and between toes) Watch for new spots on your skin or a spot that's changing in color, shape, size. If you have a lot of moles, take digital photos of them each month. Make sure to take photos both up close and from a distance. These can help you see if any moles foreign exchange position clerk time. Know your skin Most skin changes aren't cancer. But if you see any changes in your skin, call your healthcare provider right away. Only they can tell you if a change is a problem. If you have skin cancer, seeing your provider can be the first step to getting the treatment that could save your life. [employer] last reviewed this educational content on 07/08/2021 ?? [id number] [employer]. All rights reserved. This information is not intended as a substitute for professional medical care. Always follow your healthcare professional's instructions. documented in this encounter Progress Notes * Shy Marks PA-C - 04/30/2023 1:00 PM CDT [facility] Dermatology Note Encounter Date: Apr 30, 2023 Office Visit Dermatology Problem List: 1. Skin cancer screening 04/30/23 ISK s/p cryo 04/30/23 Assessment & Plan: # Inflamed seborrheic keratosis, right lateral back. Because this is clinically inflamed and symptomatic, rubbing against clothing, will treated in the office with cryotherapy. - Cryotherapy performed today (see procedure note(s) below). # Skin cancer screening with multiple benign nevi, solar lentigines - ABCDEs: Counseled ABCDEs of melanoma: Asymmetry, Border (irregularity), Color (not uniform, changes in color), Diameter (greater than 6 mm which is about the size of a pencil eraser), and Evolving (any changes in preexisting moles). - Sun protection: Counseled SPF30+ sunscreen, UPF clothing, sun avoidance, tanning bed avoidance. # Ruiz angiomas and seborrheic keratoses, Benign, reassurance given. Procedures Performed: - Cryotherapy procedure note, location(s): right lateral back. After verbal consent and discussion of risks and benefits including, but not limited to, dyspigmentation/scar, blister, and pain, 1 lesion(s) was(were) treated with 1-2 mm freeze border for 1-2 cycles with liquid nitrogen. Post cryotherapy instructions were provided. Follow-up: 1-2 year(s) in-person, or earlier for new or changing lesions Staff: All risks, benefits and alternatives were discussed with patient. Patient is in agreement and understands the assessment and plan. All questions were answered. Sun Screen Education was given. Return to Clinic in 1-2 yrs or sooner as needed. Shy Marks PA-C CC: [facility] reports spot of concern on back. ) HPI: Ms. Janis Borrero is a(n) 42 year old female who presents today as a return patient for a skin check as a [facility] Skin Cancer Screening. Last seen by Dr Mason 04/12/22 when she had a benign exam. Today, She reports she as a growth on her right lateral back that is itchy and irritated. It looks different than the rest of her moles. It rubs against her clothing. No personal or family history of skin cancer. Patient is otherwise feeling well, without additional skin concerns. Labs Reviewed: N/A Physical Exam: Vitals: There were no vitals taken for this visit. SKIN: Full skin, which includes the head/face, both arms, chest, back, abdomen,both legs, genitaliaand/or groin buttocks, digits and/or nails, was examined. - There are dome shaped bright red papules on the trunk. Multiple regular brown pigmented macules and papules are identified on the trunk and extremities. Scattered brown macules on sun exposed areas. There are waxy stuck on eng to brown papules on the trunk. There is a eng to brown waxy stuck on papule with surrounding erythema on the right lateral back. . - No other lesions of concern on areas examined. Medications: Current Outpatient Medications Medication candesartan (ATACAND) 8 MG tablet escitalopram (LEXAPRO) 10 MG tablet levonorgestrel (MIRENA) 20 MCG/DAY IUD Tolvaptan (JYNARQUE) 30 & 15 MG TBPK No current facility-administered medications for this visit. Past Medical History: There is no problem list on file for this patient. Past Medical History: Diagnosis Date ADPKD (autosomal dominant polycystic kidney disease) Benign essential hypertension Bilateral breast cysts s/p drainage GIL (generalized anxiety disorder) Liver disease, cystic, congenital CC No referring provider defined for this encounter. on close of this encounter. documented in this encounter Nursing Notes * Clementina Montes De Oca - 04/30/2023 1:00 PM CDT Dermatology Rooming Note Janis Borrero's goals for this visit include: Chief Complaint Patient presents with Derm Problem FBS. Princess reports spot of concern on back. HONG Peoples documented in this encounter Plan of Treatment Upcoming Encounters Date Type Department Care Team (Late st Contact Info) Description 01/02/2024 10:00 AM CDT Office Visit [facility] [address] [facility] [address] [place] [address] Lyssa Delcid MD [address] [facility] [address] [place] [address] documented as of this encounter Procedures Procedure Name Priority Date/Time Associated Diagnosis Comments MS DESTRUCT BENIGN LESION, UP TO 14 Routine 04/30/2023 1:24 PM CDT Inflamed seborrheic keratosis documented in this encounter Visit Diagnoses Diagnosis Multiple benign nevi- Primary Benign neoplasm of skin, site unspecified Seborrheic keratosis Other seborrheic keratosis Solar lentigo Other dyschromia Ruiz angioma Nevus, non-neoplastic Skin cancer screening Screening for malignant neoplasm of the skin Inflamed seborrheic keratosis documented in this encounter Care Teams Gas Compressor Operator Relationship Specialty Start Date End Date Alda Hawkins MD [address] [address] PCP - General Internal Medicine 04/30/23 Alda Hawkins MD [address] [address] Assigned PCP 03/23/22 Matthew Ayala OD [address] [phone] Assigned Surgical Provider 02/10/23 documented as of this encounter
--- OUTSIDE RECORDS SUMMARY | 2023-11-03 10:27 | XMS_ITS | Encounter Summary ---
Author Name Unknown Organization [place] Address [address] [facility] [address] Care Team Providers Care Therapeutic Consultant Name Role Phone LogeaisAlda MD Unavailable Matthew Ayala OD Unavailable [phone] LogeaisAlda MD Primary Care Provider Reason for Visit * Audiology (Routine: Next available opening) - Pending Review Specialty Diagnoses / Procedures Referred By Brayan buenrostro Referred To Contact Audiology Diagnoses Encounter for preventative adult health care examination Darien Duval MD [address] [place] [address] [address] [place] [address] Referral ID Status Reason Start Date Expiration Date Visits Requested Visits Authorized [id number] Pending Review Assess and Evaluate 04/25/2023 04/24/2024 1 1 Encounter Details Date Type Department Care Team (Latest Contact Info) Description 04/30/2023 2:30 PM CDT Office Visit [facility] Audiology [address] 4th [place] [address] Sandra Zepeda, [facility] [address] [place] [address] Ear pain, bilateral (Primary Dx); Encounter for preventative adult health care examination [...] as of this encounter Progress Notes * Sandra Zepeda AuD - 04/30/2023 2:30 PM CDT AUDIOLOGY REPORT SUMMARY: Audiology visit completed. See audiogram for results. RECOMMENDATIONS: Follow-up with ENT. Dianne Romo. Audiology Doctoral Student [place] #[id number] I was present with the patient for the entire Audiology appointment including all procedures/testing performed by the AuD student, and agree with the assessment and plan as documented. Aston Simpson CCC-[place]dn[place] Keeper [place] #[id number] documented in this encounter Plan of Treatment Upcoming Encounters Date Type Department Care Team (Late st Contact Info) Description 01/02/2024 10:00 AM CDT Office Visit [facility] [address] [place] [phone] Lyssa Delcid MD [address] [place] [address] documented as of this encounter Procedures Procedure Name Priority Date/Time Associated Diagnosis Comments IL COMPREHENSIVE HEARING TEST Routine 04/30/2023 3:49 PM CDT Ear pain, bilateral IL TYMPANOMETRY AND REFLEX THRESHOLD MEASUREMENTS Routine 04/30/2023 3:49 PM CDT Ear pain, bilateral AUDIOGRAM/TYMPANOGRAM - INTERFACE 04/30/2023 2:33 PM CDT documented in this encounter Results * AUDIOGRAM/TYMPANOGRAM - INTERFACE (04/30/2023 2:33 PM CDT) 04/30/2023 2:33 PM CDT Provider Unknown PROCEDURES documented in this encounter Visit Diagnoses Diagnosis Ear pain, bilateral- Primary Encounter for preventative adult health care examination documented in this encounter Care Teams Therapeutic Consultant Relationship Specialty Start Date End Date Alda Hawkins MD [address] [place] [id number] PCP - General Internal Medicine 04/30/23 Alda Hawkins MD [address] [place] [phone] Assigned PCP 03/23/22 Matthew Ayala OD [address] [place] [phone] Assigned Surgical Provider 02/10/23 documented as of this encounter
--- OUTSIDE RECORDS SUMMARY | 2023-11-03 10:27 | XMS_ITS | Encounter Summary ---
Author Name Unknown Organization [facility] Address [facility] [place] [address] Care Team Providers Care Assembler Ping Pong Table Name Role Phone Logeais, Alda BEST Unavailable Matthew Ayala OD Unavailable [phone] LogeaisAlda MD Primary Care Provider [phone] Reason for Visit * Diagnostic Imaging Dexa (Routine) - Pending Review Specialty Diagnoses / Procedures Referred By Contac t Referred To Contact Radiology. Diagnoses Encounter for preventative adult health care examination Procedures DX Hip/Pelvis/Spine Darien Duval MD [address] [place] [address] 7[address] [place] [address] Referral ID Status Reason Start Date Expiration Date V isits Requested Visits Authorized [id number] Pending Review 04/25/2023 04/24/2024 1 1 Encounter Details Date Type Department Care Team (Latest Contact Info) Description 04/30/2023 10:00 AM CDT Ancillary Procedure [facility] [address] 1st [place] [address] Encounter for preventative adult health [...] Description 01/02/2024 10:00 AM CDT Office Visit [facility] [address] [place] [address] Lyssa Delcid MD [address] [place] [address] documented as of this encounter Procedures Procedure Name Priority Date/Time Associated Diagnosis Comments DX HIP/PELVIS/SPINE Routine 04/30/2023 10:34 AM CDT Encounter for preventative adult health care examination documented in this encounter Results * DX Hip/Pelvis/Spine (04/30/2023 10:34 AM CDT) Anatomical Region Laterality Modality Dexa Bone Mineral Den sity Narrative 05/07/2023 1:13 PM CDT Images from the original result were not included. [facility] [address] Phone: ?? Fax: Impression The most negative [...] correlation recommended Technical quality Satisfactory. Principal result healthcare interpreter: Carmen Pardo MD, [facility] Division of Endocrinology and Diabetes ?? Department [...] LSC = least significant changes at the [facility] Imaging Center (historical data) AP spine = [...] Darien Duval MD IMG DEXA ORDER TRACEE documented in this encounter Visit Diagnoses Diagnosis Encounter for preventative adult health care examination documented in this encounter Care Teams Assembler Ping Pong Table Relationship Specialty Start Date End Date Alda Hawkins MD [address] [phone] PCP - General Internal Medicine 04/30/23 Alda Hawkins MD [address] [address] Assigned PCP 03/23/22 Matthew Ayala OD [address] [phone] Assigned Surgical Provider 02/10/23 documented as of this encounter
--- OUTSIDE RECORDS SUMMARY | 2023-11-03 10:27 | XMS_ITS ---
Author Name Unknown Organization [facility] Address [address] [place] [address] Care Team Providers Care Hide Worker Name Role Phone Unavailable Unavailable Unavailable Surgery Details Not on file Complications Check Surgery Details section. Procedure Estimated Blood Loss Check Surgery Details section. Procedure Findings Check Surgery Details section. Procedure Specimens Taken Check Surgery Details section.
--- OUTSIDE RECORDS SUMMARY | 2023-11-03 10:27 | XMS_ITS | Encounter Summary ---
Author Name Unknown Organization [facility] Address [address] [place] [address] Care Team Providers Care Dinkey Dispatcher Name Role Phone Elsewhere, Pcp Primary Care Provider Unavailabl e Reason for Referral * Outpatient (Routine) - Authorized Specialty Diagnoses / Procedures Referred By Contac t Referred To Contact Nephrology and Hypertension Diagnoses Polycystic Kidney Autosomal Dominant Pyuria Eldon Vazquez M.D., Ph.D. [address] [place] [phone] [facility] Referral ID Status Reason Start Date Expiration Date V isits Requested Visits Authorized [id number] Authorized 08/31/2023 08/30/2026 1 1 ESS TEACHER * Outpatient (Routine) - Authorized Specialty Diagnoses / Procedures Referred By Contac t Referred To Contact Nephrology and Hypertension Diagnoses Polycystic Kidney Autosomal Dominant Pyuria Eldon Vazquez M.D., Ph.D. [address] [place] [phone] [facility] Referral ID Status Reason Start Date Expiration Date V isits Requested Visits Authorized [id number] Authorized 08/31/2023 08/30/2026 1 1 ESS TEACHER Reason for Visit * Reason Onset Date Comments Pre-visit Testing Orders 08/31/2023 Encounter Details Date Type Department Care Team (Latest Contact Info) Description 08/31/2023 Clinical Communication Division of Nephrology and Hypertension in [place], [place] [address] [place] [address] Eldon Vazquez M.D., Ph.D. 200 [place] [address] Pre-visit Testing Orders Social History Tobacco Use Types Packs/Day Years Used Date Smoking Tobacco: Never Smokeless Tobacco: Never Alcohol Use Standard Drinks/Week Comments Yes 2 (1 standard drink = 0.6 oz pur e alcohol) Only drink about twice a month Humiliation, Afraid, Rape, and Kick questionnair e Answer Date Recorded Within the last year, have y ou been afraid of your partner or ex-partner? No 06/23/2022 Within the last year, have y ou been humiliated or emotionally abused in other ways by your partner or ex-partner? No Within the last year, have y ou been kicked, hit, slapped, or otherwise physically hurt by your partner or ex-partner? No 06/23/2022 Within the last year, have y ou been raped or forced to have any kind of sexual activity by your partner or ex-partner? No 06/23/2022 Social Connection and Isolat ion Panel [NHANES] Answer Date Recorded In a typical week, how many times do you talk on the phone with family, friends, or neighbors? More than three times a week 06/23/2022 How often do you get togethe r with friends or relatives? Once a week 06/23/2022 How often do you attend chur ch or scientology services? Never 06/23/2022 Do you belong to any clubs o r organizations such as gnosticism groups, unions, fraternal or athletic groups, or school groups? No 06/23/2022 How often do you attend meet ings of the clubs or organizations you belong to? Never 06/23/2022 Are you , , di vorced, , never , or living with a partner? 06/23/2022 AUDIT-C Answer Date Recorded Q1: How often do you have a drink containing alc ohol? Monthly or less 06/23/2022 Q2: How many drinks containi ng alcohol do you have on a typical day when you are drinking? 1 or 2 06/23/2022 Q3: How often do you have si x or more drinks on one occasion? Never 06/23/2022 Overall Financial Resource Strain (CARDIA) Answe r Date Recorded How hard is it for you to pa y for the very basics like food, housing, medical care, and heating? Not hard at all 07/26/2023 [facility] - Occupational Stress Questionnaire Answer Date Recorded Do you feel stress - tense, restless, nervous, or anxious, or unable to sleep at night because your mind is troubled all the time - these days? Only a little 06/23/2022 Exercise Vital Sign Answer Date Recorde d On average, how many days pe r week do you engage in moderate to strenuous exercise (like a brisk walk)? 4 days 07/26/2023 On average, how many minutes do you engage in exercise at this level? 10 min 07/26/2023 Hunger Vital Sign Answer Date Recorded Within the past 12 months, y ou worried that your food would run out before you got the money to buy more. Never true 07/26/20 23 Within the past 12 months, t he food you bought just didn't last and you didn't have money to get more. Never true 07/26/2023 PRAPARE - Transportation Answer Date Re corded In the past 12 months, has l ack of transportation kept you from medical appointments or from getting medications? No 07/08 In the past 12 months, has l ack of transportation kept you from meetings, work, or from getting things needed for daily living? No 07/26/2023 Nutrition Answer Date Recorded Nutrition: EVOO Fat Source Yes 07/26 On average, how many serving s of fruits and vegetables do you eat per day (serving size is equal to 1 cup or approximately the size of a tennis ball)? 0-2 07/26/2023 Dental Answer Date Recorded Dental: Regular Dentist Yes 06/23/20 Employment Answer Date Recorded Employment status Employed and actively working without restrictions 07/26/2023 Housing Stability Answer Date Recorded What is your living situation today? I have a [facility] place to live 07/26/2023 Education Answer Date Recorded What is the highest level of school you have completed or the highest degree you have received? Associate degree: academic program 05/08/2021 Sex and Gender Information Value Date Recorded Sex Assigned at Female 06/23/2022 7:30 PM CDT Gender Identity Female 05/08/2021 8:33 AM CDT Sexual Orientation Straight 05/08/2021 8: 33 AM CDT documented as of this encounter Plan of Treatment Scheduled Orders Name Type Priority Associated Diagnoses Orde r Schedule Comprehensive Metabolic Panel Lab Routine Polycystic Kidney Autosomal Dominant Pyuria Expected: 08/01/2024, Expires: 07/08/2028 Uric Acid Lab Routine Polycystic Kidney Autosomal Dominant Pyuria Expected: 08/01/2024, Expires: 07/08/2028 Phosphorus Inorganic Lab Routine Polycystic Kidney Autosomal Dominant Pyuria Expected: 08/01/2024, Expires: 07/08/2028 CBC with Differential, Blood Lab Routine Polycystic Kidney Autosomal Dominant Pyuria Expected: 08/01/2024, Expires: 07/08/2028 Lipid Panel Lab Routine Polycystic Kidney Autosomal Dominant Pyuria Expected: 08/01/2024, Expires: 07/08/2028 Urinalysis with Microscopic: Urine, Midstream Lab Routine Polycystic Kidney Autosomal Dominant Pyuria Expected: 08/01/2024, Expires: 07/08/2028 Scheduled Referrals Name Type Priority Associated Diagnoses Order Schedule Nephrology and Hypertension office visit (clinic) Outpatient Referral Routine Polycystic Kidney Autosomal Dominant Pyuria Expected: 08/01/2024, Expires: 07/08/2028 Nephrology nurse visit (clinic) Outpatient Referral Routine Polycystic Kidney Autosomal Dominant Pyuria Expected: 08/01/2024, Expires: 07/08/2028 documented as of this encounter Visit Diagnoses Diagnosis Polycystic Kidney Autosomal Dominant- Primary Pyuria documented in this encounter Care Teams Dinkey Dispatcher Relationship Specialty Start Date End Date Elsewhere, Pcp PCP - General Internal Medicine 08/01/23 documented as of this encounter
--- OUTSIDE RECORDS SUMMARY | 2023-11-03 10:27 | XMS_ITS | Encounter Summary ---
Author Name Unknown Organization [place] Address [address] [facility] [place] [address] Care Team Providers Care Lab Technologist Name Role Phone LogeaisAlda MD Unavailable Matthew Ayala OD Unavailable [phone] Serafin Mason MD Unavailable [phone] Matthew Ayala OD Unavailable [phone] LogeaAlda martinez MD Primary Care Provider [phone] Shy Marks PA-C Unavailable [phone] Encounter Details Date Type Department Care Team (Late st Contact Info) Description 04/12/2022 [facility] Medical Advice [facility] [address] [address] Valerie Maza, RD [address] [place] [address] Social History Tobacco Use Types Packs/Day Years [...] suspected to have Coronavirus/COVID-19? No / Unsure 04/12/2022 6:55 AM CDT documented as of this encounter Plan of Treatment Upcoming Encounters Date Type Department Care Team (Late st Contact Info) Description 01/02/2024 10:00 AM CDT Office Visit [facility] [address] [facility] [address] [place] [address] Lyssa Delcid MD [address] [place] [address] 200 [place], [place] [address] documented as of this encounter Visit Diagnoses Not on filedocumented in this encounter Care Teams Lab Technologist Relationship Specialty Start Date End Date Alda Hawkins MD [address] [place] [phone] PCP - General Internal Medicine 04/30/23 Alda Hawkins MD [address] [place] [phone] Assigned PCP 03/23/22 Matthew Ayala OD [address] [place] [phone] Assigned Surgical Provider 04/15/22 02/02/23 Serafin Mason MD [address] [place] [address] Assigned Surgical Provider 02/03/23 02/09/23 Matthew Ayala OD [address] [place] [address] 4th [place] [phone] Assigned Surgical Provider 02/10/23 05/25/23 Shy Marks PA-C [address] [place] [phone] Assigned Surgical Provider 05/26/23 documented as of this encounter
--- OUTSIDE RECORDS SUMMARY | 2023-11-03 10:27 | XMS_ITS | Encounter Summary ---
Author Name Unknown Organization [place] Address [facility] [place] [address] Care Team Providers Care Slasher Tender Name Role Phone LogeaisAlda MD Unavailable Matthew Ayala OD Unavailable [phone] LogeaisAlda MD Primary Care Provider [phone] Encounter Details Date Type Department Care Team (Late st Contact Info) Description 04/30/2023 10:30 AM CDT Orders Only [facility] Pulmonary Function Testing [address] 3rd [place] [address] Encounter for preventative adult health [...] Description 01/02/2024 10:00 AM CDT Office Visit [facility] [address] [place] [address] Lyssa Delcid MD [address] [place] [address] documented as of this encounter Procedures Procedure Name Priority Date/Time Associated Diagnosis Comments [place] RESPIRATORY FLOW VOLUME LOOP Routine 04/30/2023 10:37 AM CDT Encounter for preventative adult health care examination PFT GENERAL LAB TESTING Routine 04/30/2023 10:25 AM CDT Encounter for preventative adult health care examination documented in this encounter Results * PFT General Lab Testing (04/30/2023 10:25 AM CDT) FVC-Pred 3.84 L [facility] PFT FVC-Pre 3.77 L [facility] PFT FVC-%Pred-Pre 98 % [facility] PFT FEV1-Pre 3.03 L [facility] PFT FEV1-%Pred-Pre 96 % [facility] PFT [id number] 82 % BREEZE PFT [id number] 80 % [facility]REEZE PFT FEFMax-Pred 7.57 L/sec [facility]REEZE PFT FEFMax-Pre 6.52 L/sec BREEZE PFT FEFMax-%Pred-Pr e 86 % BREEZE PFT [id number] 3.20 L/sec BREEZE PFT [id number] 2.90 L/sec BREEZE PFT [id number]-%Pred-P re 90 % BREEZE PFT ExpTime-Pre 5.42 sec BREEZE PFT FIFMax-Pre 6.02 L/sec BREEZE PFT [id number] 84 % BREEZE PFT [id number] 80 % BREEZE PFT 04/30/2023 10:2 5 AM CDT Narrative BREEZE PFT - 05/01/2023 12:50 PM CDT The FVC, FEV1, FEV1/FVC ratio and UWC43-64% are within normal limits. IMPRESSION: Normal Spirometry Compared with testing from ??04/12/2022 there has been no significant change in the FEV1 or FVC. Alma Riggins MD ?This interpretation has been electronically signed: ??ALMA RIGGINS 05/01/2023 ??12:38:03 PM? Darien Duval MD PFT ORDERABLES [facility]ZE PFT documented in this encounter Visit Diagnoses Diagnosis Encounter for preventative adult health care examination documented in this encounter Care Teams Slasher Tender Relationship Specialty Start Date End Date Alda Hawkins MD [address] [place] [phone] PCP - General Internal Medicine 04/30/23 Alda Hawkins MD [address] [place] [address] Assigned PCP 03/23/22 Matthew Ayala OD [address] [place] [phone] Assigned Surgical Provider 02/10/23 documented as of this encounter
--- OUTSIDE RECORDS SUMMARY | 2023-11-03 10:27 | XMS_ITS | Encounter Summary ---
Author Name Unknown Organization [place] Address [address] [facility] [place] [address] Care Team Providers Care Full Stack Python Developer Name Role Phone LogeaisAlda MD Unavailable Matthew Ayala OD Unavailable [phone] LogeaisAlda MD Primary Care Provider [phone] Reason for Visit * Diagnostic Imaging Mammo (Routine) - Pending Review Specialty Diagnoses / Procedures Referred By Contvania t Referred To Contact Radiology. Diagnoses Encounter for preventative adult health care examination Visit for screening mammogram Procedures MA Screening Bilateral w/ Jadiel NEVAEH Screen Bilateral w/Jadiel Darien Duval MD [address] [place] [address] [place] [address] Referral ID Status Reason Start Date Expiration Date V isits Requested Visits Authorized [id number] Pending Review 04/25/2023 04/24/2024 1 1 Encounter Details Date Type Department Care Team (Latest Contact Info) Description 04/30/2023 11:00 AM CDT Ancillary Procedure [facility] [place] [address] [facility] 2nd [place] [address] Encounter for preventative adult health care examination; Visit for screening mammogram Social History Tobacco Use Types Packs/Day Years [...] Office Visit [facility] [address] [facility] [address] [place] [address] Lyssa Delcid MD [address] [place] [address] documented as of this encounter Procedures Procedure Name Priority Date/Time Associated Diagnosis Comments MA SCREENING BILATERAL W/ JADIEL Routine 04/30/2023 11:31 AM CDT Encounter for preventative adult health care examination Visit for screening mammogram documented in this encounter Results * MA Screening Bilateral w/ Jadiel (04/30/2023 11:31 AM CDT) Anatomical Region Laterality Modality Breast Bilateral Mammography Impressions 04/30/2023 2:42 PM CDT IMPRESSION: BI-RADS CATEGORY: 1 - ??NEGATIVE. RECOMMENDED FOLLOW-UP: Annual Mammography Results to be sent to patient. AVE VAN MD Narrative 04/30/2023 2:42 PM CDT SCREENING MAMMOGRAM, BILATERAL, DIGITAL, with CAD and TOMOSYNTHESIS 04/30/2023 HISTORY & FAMILY HISTORY: No current breast concerns. COMPARISON: 03/13/2022, 03/14/2021, 08/17/2028, 07/05/2018 mammogram, 08/10/2022, 03/14/2021, 08/17/2020 ultrasound TECHNIQUE: Routine screening mammogram with CAD and tomosynthesis. BREAST DENSITY: The breasts are heterogeneously dense, which may obscure small masses. FINDINGS: There are bilateral circumscribed, waxing and waning benign-appearing masses throughout bilateral breasts, in this patient with sonographically documented cysts. No suspicious findings. Darien Duval MD IMG MAMMOGRAPH Y ORDERABLES documented in this encounter Visit Diagnoses Diagnosis Encounter for preventative adult health care examination Visit for screening mammogram Other screening mammogram documented in this encounter Care Teams Full Stack Python Developer Relationship Specialty Start Date End Date Alda Hawkins MD [address] [place] [phone] PCP - General Internal Medicine 04/30/23 Alda Hawkins MD [address] [place] [id number] Assigned PCP 03/23/22 Matthew Ayala OD [address] [place] [phone] Assigned Surgical Provider 02/10/23 documented as of this encounter
--- OUTSIDE RECORDS SUMMARY | 2023-11-03 10:27 | XMS_ITS | Encounter Summary ---
Author Name Unknown Organization [facility] Address [address] [place] [address] Care Team Providers Care Machine Veneer Repairer Name Role Phone Elsewhere, Pcp Primary Care Provider Unavailabl e Encounter Details Date Type Department Care Team (Latest Contact Info) Description 08/01/2023 2:40 PM CDT - 08/01/2023 11:59 PM CDT Hospital Encounter Department of Laboratory Medicine and Pathology, [facility], in [place], [place] [address] [place] [address] Eldon Vazquez M.D., Ph.D. [address] [place] [phone] Polycystic Kidney Autosomal Dominant; Pyuria Discharge Disposition: Home or Self Care Social History Tobacco Use Types Packs/Day Years [...] often do you attend chur ch or confucianist services? Never 06/23/2022 Do you belong to any clubs o r organizations such as hoahaoism groups, unions, fraternal or athletic groups, or [...] and heating? Not hard at all 07/26/2023 [facility] of Occupat ional Health - Occupational Stress Questionnaire Answer Date Recorded [...] your living situation today? I have a [facility] place to live 07/26/2023 Education Answer Date [...] AM CDT documented as of this encounter Medications at Time of Discharge Medication Sig Dispensed Refills Start Date End Date candesartan (ATACAND) 8 mg tabletIndications:Other Secondary Hypertension TAKE 1 TABLET(8 MG) BY MOUTH DAILY 90 tablet 1 07/10/2023 escitalopram (LEXAPRO) 5 mg tablet Take 20 mg by mouth daily. 20 mg tablets 0 levonorgestreL (Mirena) 20 mcg/24 hours (6 yrs) 52 mg IUD 1 Intra Uterine Device by intrauterine route continuously. 0 12/18/2018 tolvaptan, polycys kidney dis, (Jynarque) 30 mg (AM)/ 15 mg (PM) tablets, sequential Take 30 mg by mouth every morning AND 15 mg daily. Take 15 mg 8 hours after morning dosage. 56 tablet 11 08/01/2023 documented as of this encounter Plan of Treatment Not on file documented as of this encounter Procedures Procedure Name Priority Date/Time Associated Diagnosis Comments BACTERIAL CULTURE, AEROBIC + SUSC, URINE Routine 08/01/2023 3:01 PM CDT Polycystic Kidney Autosomal Dominant Pyuria documented in this encounter Results * Bacterial Culture, Aerobic + Susceptibility, Urine (08/01/2023 3:01 PM CDT) Urine Culture Urogenital microbiota, susceptibilities not performed per laboratory criteria. 08/02/2023 12:36 PM CDT DTL Urine (Urine, Midstream) 08/01/2023 3:01 PM CDT 08/01/2023 3:33 PM CDT Comment:Specimen Source Site : Urine Eldon Vazquez M.D., Ph.D. LAB MICROBI [facility] - GENERAL ORDERABLES [facility] [address] [place] [address], [facility] DTL [facility] [address] [place] [address] documented in this encounter Visit Diagnoses Diagnosis Polycystic Kidney Autosomal Dominant Pyuria documented in this encounter Care Teams Machine Veneer Repairer Relationship Specialty Start Date End Date Elsewhere, Pcp PCP - General Internal Medicine 08/01/23 documented as of this encounter
--- OUTSIDE RECORDS SUMMARY | 2023-11-03 10:27 | XMS_ITS | Encounter Summary ---
Author Name Unknown Organization [facility] Address [address] [place] [address] Care Team Providers Care Behavioral Health Worker Name Role Phone LogeaisAlda MD Unavailable Matthew Ayala OD Unavailable [phone] LogeaisAlda MD Primary Care Provider [phone] Reason for Visit * Reason Comments Eval/Assessment Encounter Details Date Type Department Care Team (Late st Contact Info) Description 04/30/2023 9:00 AM CDT Office Visit [address] [place] [phone] Fitness, [facility] Exercise counseling (Primary Dx); Encounter for preventative adult health [...] this encounter Patient Instructions * Patient Instructions* Walt Mendenhall - 04/30/2023 9:00 AM CDT Princess, It was a pleasure getting to know you today, and thank you for giving your best efforts during the exercise testing today. Like we talked about today, we don't need to try to progress your physical activity levels too quickly which will just set you up for failure. Let's build on what you have beenable to do since last year, since you have maintained an increase in physical activity per week compared to then. This may seem like a small thing, but it is not because you are creating a lasting habit that is helping you stay more active. Over the next 4-6 months over the short term, let's just keep trying to be as consistent as we can with your weekly workout routine. And in that time, we can get in extra workouts here and there when you are able to. So then hopefully by 10-[address], you are doing a little bit more compared to what you are doing right now. You scored a 31.0 ml/kg/min for your VO2 max score, which puts you just barely under the 30th percentile. But you are not far away from the Fair category for your VO2 max. As you know, cardio workouts is really the only way to increase this number. It is correlated with reduced risk of heart disease and other heart related issues, so it is very important to get this number as high as you possibly can. You do the rower for your cardio workouts mostly. So let's keep doing that for part of your cardio each week. It would be nice to find another piece of cardio equipment that would allow you todo 20-40 minutes per workout on it, such as an elliptical or stairmaster. These longer bouts of cardio are very good for building your endurance. 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 And then eventually that 150 minutes per week number won't seem as far away. Remember 3-4 days per week of cardio is probably what you want to aim for. You want to do mostly low/moderate intensity cardio each week. But 1 time per week it is good to do some intervals in your workouts where you push your heart rate up a little higher than usual. 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 So this puts you into the average range for those, and we want to keep building this score higher over time if we can just like the VO2 max number. Keep doing your group fitness classes 1-2 days per week. And like we talked about today, add in 1-2 days of your own strength t raining workout at home consistently. It doesn't have to be a very long workout, even 10-20 minutestotal. Pick a handful of exercises from this library of exercise below, and you can make yourself areally good workout. Upper body exercises: Hand release knee pushups, knee pushups, Resistance Band Pull Aparts, Dumbbell Renegade Rows, Dumbbell Bent Over Back Rows, Dumbbell Chest Press, Dumbbell Chest Flys, Dumbbell Push Press, Dumbbell Seated Shoulder Press, Dumbbell Arnold Press, Dumbbell 1 arm half kneeling shoulder press. Lower Body exercises: Dumbbell Squat to Press, Dumbbell Forward Lunge to Bicep Curl, Dumbbell Goblet Squat, Dumbbell Cape Verdean Lift, Dumbbell Step Ups, Singaporean Ball Hamstring Curls, Lunge Jumps, Squat Jumps Please feel free to reach out at any time if you have any questions for me Princess. I would love to hear back from you down the road to hear how you are doing. You are seeing your health/testing scoresimprove from last year so let's keep this ball rolling and score even better when you come back to [facility] again in the future! Walt Mendenhall Practice Administrator [email or web address] documented in this encounter Progress Notes * Walt Mendenhall - 04/30/2023 9:00 AM CDT See Fitness Action Plan for notes. documented in this encounter Miscellaneous Notes * Outpatient Nurse Note - Walt Mendenhall - 04/30/2023 10:20 AM CDT 04/30/23 1016 Fitness Current Fitness Regimen: Currently does a group fitness class 2 times per week. Also does some rower at home 1-2 days per week for about 10 minutes. Walks on her lunch break 2-3 days per week. Lifts weights at home casually while watching tv sometimes. Fitness Goals Wants to improve overall health. Wants to keep gradually adding in more physical activity like she has been compared to last year. Timeline Recommended Activity this Week Do a strength training workout at home for 10-20 minutes. Do the rower 2 times this week. Get in as many of the group classes as you can this week (1-2 days) Recommended Minutes per Day this Week 20 Min Recommended Number of Days this Week 4 Per Day/Per Week Recommended Activity this Month Gradually build up to doing the rower for 15-20 minutes per workout, 2-3 days per week. Make 1 time of strength training at home the average per week. Maintain 1-2 days per week of the group fitness class Recommended Duration this Month 30 Min/Hrs Recommended Frequency this Month 5 Per Day/Per Week Recommended Activity the Nex 3 Months Work on adding one extra day of cardio per week in, so 3 daysper week (on the rower or another piece of cardio equipment). Aim for 1-2 days of strength trainingat home per week. Maintain 2 days per week of the group fitness class. Recommended Duration the Nex 3 Months 40 Min/Hrs Recommended Frequency the Nex 3 Months: 0 Per Day/Per Week VO2 Max VO2MAX: 31 ml/kg/min VO2- max Percentile 25 % Fitness Level Poor Equalizer Operator Strength Equalizer Operator Strength (Right): 69 ml/kg/min Equalizer Operator Strength (Left) 60 ml/kg/min documented in this encounter Plan of Treatment Upcoming Encounters Date Type Department Care Team (Late st Contact Info) Description 01/02/2024 10:00 AM CDT Office Visit [facility] [address] [place] [address] Lyssa Delcid MD [address] [place] [address] Pending Results Name Type Priority Associated Diagnoses Date /Time VO2Max Fitness Assessment PFT Routine Encounter for preventative adult health care examination 04/30/2023 8:56 AM CDT documented as of this encounter Procedures Procedure Name Priority Date/Time Associated Diagnosis Comments VO2 MAX FITNESS ASSESSMENT Routine 04/30/2023 8:56 AM CDT Encounter for preventative adult health care examination documented in this encounter Visit Diagnoses Diagnosis Exercise counseling- Primary Encounter for preventative adult health care examination documented in this encounter Care Teams Behavioral Health Worker Relationship Specialty Start Date End Date Alda Hawkins MD [address] [place] [id number] PCP - General Internal Medicine 04/30/23 Alda Hawkins MD [address] [place] [id number] Assigned PCP 03/23/22 Matthew Ayala OD [address] [place] [phone] Assigned Surgical Provider 02/10/23 documented as of this encounter
--- OUTSIDE RECORDS SUMMARY | 2023-11-03 10:27 | XMS_ITS | Clinical Summary ---
Author Name Unknown Organization [facility] Address [address] [place] [address] Care Team Providers Care Home Office Claim Specialist Name Role Phone Rosemarie Portillo APRN, CNP Primary Care Provid er Source Comments You are receiving this document as you are listed as the primary care provider,follow-up provider, or the patient has been referred to you for consultation.This is in compliance with the Medicare and[facility] EHR Incentive Program,which states Providers who transition their patient to another setting of careor provider of care or refers their patient to another provider of care shouldprovide summary care record for each transition of care or referral. [facility] Allergies No known active allergies Medications Medication Sig Dispensed Refills Start Date End Date Status ALPRAZolam (AKA XANAX) 0.25 MG tabletIndications:A nxiety (HRC) Take 1 tablet by mouth 3 times daily as needed for Anxiety. 20 tablet 0 10/12/2014 Active Additional Information Patient not taking.Reported on 08/09/2016 loratadine (AKA CLARITIN) 10 MG tablet Take 10 mg by mouth daily (every 24 hours). 0 12/10/2015 Active pseudoephedrine (AKA SUDAFED) 30 MG tablet Take 30 mg by mouth every 6 hours as needed for Congestion. 0 12/10/2015 Active Active Problems No known active problems Family History Medical History Relation Name Comments Thyroid Disorder Mother Thyroid Disorder Maternal Grandmother Relation Name Status Comments Father Alive Mother Alive Maternal Grandmother Alive Social History Tobacco Use Types Packs/Day Years Used Date Smoking Tobacco: Never Smokeless Tobacco: Never Alcohol Use Standard Drinks/Week Comments Yes 0 (1 standard drink = 0.6 oz pur e alcohol) rarely Sex and Gender Information Value Date Recorded Sex Assigned at Not on file Gender Identity Not on file Sexual Orientation Not on file Last Filed Vital Signs Vital Sign Reading Time Taken Comments Blood Pressure 132/74 08/09/2016 8:25 AM CDT Pulse 62 08/09/2016 8:25 AM CDT Temperature 36.1 ??C (97 ??F) 11/27/2013 9:56 AM PROVIDER RELATIONS CONSULTANT Respiratory Rate 16 10/21/2002 4:50 PM PROVIDER RELATIONS CONSULTANT Oxygen Saturation - - Inhaled Oxygen Concentration - - Weight 69.4 kg (153 lb) 08/09/2016 8:25 AM CDT Height 171.5 cm (5' 7.5) 11/27/2013 9:56 AM PROVIDER RELATIONS CONSULTANT Body Mass Index 23.61 11/27/2013 9:56 AM PROVIDER RELATIONS CONSULTANT Plan of Treatment Health Maintenance Due Date Last Done Comments Cervical Cancer Screening Due 1980 Hep C Screening (Preventive Services) 1980 HepB (1) 1980 COVID-19 Vaccine (#1) 06/22/1981 HIV Screening (Preventive Services) 1996 Adult Preventive Visit 1998 DTaP/Tdap/Td (2 - Tdap) 07/21/2020 07/21/2010 Influenza (#1) 2023 07/24/2011, 07/21/2010 Zoster/Shingles (1 of 2) 2030 HPV Vaccine Aged Out No longer eligi ble based on patient's age to complete this topic HepA Aged Out No longer eligi ble based on patient's age to complete this topic Hib Aged Out No longer eligi ble based on patient's age to complete this topic IPV (Polio) Aged Out No longer eligi ble based on patient's age to complete this topic MCV4 Aged Out No longer eligi ble based on patient's age to complete this topic Pneumococcal Aged Out No longer eligi ble based on patient's age to complete this topic Care Teams Home Office Claim Specialist Relationship Specialty Start Date End Date Rosemarie Portillo, QUALITY CONTROL INSPECTOR, SUPERVISOR ASSEMBLY ROOM [id number] [place], [place] [address] [facility] - General 06/08/16
--- OUTSIDE RECORDS SUMMARY | 2023-11-03 10:27 | XMS_ITS | Referral Summary ---
Author Name Unknown Organization [facility] Address [address] [place] [address] Care Team Providers Care Machine Shop Supervisor Name Role Phone Elsewhere, Pcp Primary Care Provider Unavailabl e Source Comments Patient records contain information from all sites at [facility]. For routine questions regarding patient records, call [phone] during business hours, M-F 8:00 AM - 5:00 PM Central Time. Record requests for emergency care only can be directed to [phone] at any time.[facility] Encounters Date Type Department Care Team Description 08/31/2023 Clinical Communication Division of Nephrology and Hypertension in [place], [place] [address] [place] [address] Eldon Vazquez M.D., Ph.D. Pre-visit Testing Orders from Last 3 Months Allergies Active Allergy Reactions Criticality Noted Date Comments Mariela GI intolerance,Nause a And Vomiting,Other (see comments) High 04/06/2022 Pollen Extracts Other (see comments) 08/16/2006 Medications Medication Sig Dispensed Refills Start Date End Date Status escitalopram (LEXAPRO) 5 mg tablet Take 20 mg by mouth daily. 20 mg tablets 0 Active levonorgestreL (Mirena) 20 mcg/24 hours (6 yrs) 52 mg IUD 1 Intra Uterine Device by intrauterine route continuously. 0 12/18/2018 Active candesartan (ATACAND) 8 mg tabletIndications:O ther Secondary Hypertension TAKE 1 TABLET(8 MG) BY MOUTH DAILY 90 tablet 1 07/10/2023 Active tolvaptan, polycys kidney dis, (Jynarque) 30 mg (AM)/ 15 mg (PM) tablets, sequential Take 30 mg by mouth every morning AND 15 mg daily. Take 15 mg 8 hours after morning dosage. 56 tablet 11 08/01/2023 Active Social History Tobacco Use Types Packs/Day Years Used Date Smoking Tobacco: Never Smokeless Tobacco: Never Tobacco Cessation:Counseling Given: Not Answered Alcohol Use Standard Drinks/Week Comments Yes 2 [...] 06/23/2022 How often do you attend chur or hinduism services? Never 06/23/2022 Do you belong to any clubs o r organizations such as sikhism groups, unions, fraternal or athletic groups, or [...] and heating? Not hard at all 07/26/2023 [facility] of Occupat ional Health - Occupational Stress [...] your living situation today? I have a [facility] place to live 07/26/2023 Education Answer Date Recorded What is the highest level of school you have completed or the highest degree you have received? Associate degree: academic program 05/08/2021 Sex and Gender Information Value Date Recorded Sex Assigned at Female 06/23/2022 7:30 PM CDT Gender Identity Female 05/08/2021 8:33 AM CDT Sexual Orientation Straight 05/08/2021 8: 33 AM CDT Last Filed Vital Signs Vital Sign Reading Time Taken Comments Blood Pressure 107/75 08/01/2023 2:04 PM CDT Pulse 70 08/01/2023 2:04 PM CDT Temperature 36.4 ??C (97.5 ??F) 08/01/2023 2:04 PM CD T Respiratory Rate - - Oxygen Saturation - - Inhaled Oxygen Concentration - - Weight 76 kg (167 lb 7 oz) 08/01/2023 2:04 PM CD T Height 172.6 cm (5' 7.95) 08/01/2023 2:04 PM CD T Body Mass Index 25.49 08/01/2023 2:04 PM CDT Plan of Treatment Not on file Care Teams Machine Shop Supervisor Relationship Specialty Start Date End Date Elsewhere, Pcp PCP - General Internal Medicine 08/01/23
--- OUTSIDE RECORDS SUMMARY | 2023-11-03 10:27 | XMS_ITS | Encounter Summary ---
Author Name Unknown Organization [facility] Address [address] [facility] [place] [address] Care Team Providers [employer] Name Role Phone LogeaisAlda MD Unavailable Matthew Ayala OD Unavailable [phone] LogeaisAlda MD Primary Care Provider [phone] Reason for Visit * Reason Comments Physical Patient is here for annual physical. Encounter Details Date Type Department Care Team (Late st Contact Info) Description 04/30/2023 1:30 PM CDT Office Visit [facility] [address] [facility] [address] [facility] [address] 5th [place] [phone] Darien Duval MD [address] [facility] [place] [address] [place], [place] [address] Encounter for preventative adult health care examination (Primary Dx); Elevated serum creatinine; Medication side effects; Polycystic kidney disease Social History Tobacco Use Types Packs/Day Years [...] ways by your partner or ex-partner? No 07 / Within the last year, have y ou [...] AM CDT documented as of this encounter Last Filed Vital Signs Vital Sign Reading [...] Mass Index 25.54 04/30/2023 8:01 AM CDT documented in this encounter Progress Notes * Darien Duval MD - 04/30/2023 1:30 PM CDT History and Physical Examination SUBJECTIVE: Chief concern: preventive health review. Past Medical History: 1. Autosomal dominant polycystic kidney disease; testing indicated that this was a spontaneous, andnot inherited, mutation; followed at [facility]. 2. Hypertension. 3. Generalized anxiety disorder. 4. History of allergic rhinitis (triggered by grass pollen), and food allergy to luis alfredo (which triggers nausea and vomiting). 5. History of multiple breast and kidney cysts Adverse Drug Reactions: None. Current Medications: Candesartan, 8 mg daily Escitalopram, 10 mg daily Tolvaptan, 30 mg every morning; 15 mg every afternoon (8 hours later). Daily multivitamin supplement. Mirena IUD, 20 mcg/24 hours (52 mg/6 years) Habits: Tobacco: Never Alcohol: 1-2 servings Caffeine: 2 servings of coffee and [address] 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 Maileas born in [place] and raised in the [place] area, where she met her future . She followed Ananth to [place], [place] for college, starting at a community college and finishing in [place]. They after his graduation and Princess began her career in training following her graduation. 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 Away from work, she enjoys reading, piano, hiking, art and decorating projects, and spending weekends at a cabi on the [facility]. She exercises by walking twice per week for 15 minutes, rowing for 10 minutes, 1-2 days per week, and participating in an exercise class once per week. Family History: Mother is 69, with history of Luis's thyroiditis and hypertension. Father is 71, with history of hypertension. Only sibling is a brother 4 years her senior, who has a bicuspid aorta and apparent Asperger's, with history of medication-induced spinal issues during past treatment for presumed ADHD. Son is in good health. Paternal grandmother in her late 80s from complications of Covid, with history of stroke in her late 80s and a several-year history of dementia. Paternalgrandfather at age 98, with history of colon cancer, diagnosed at age 92. Maternal grandmotherdied in her late 80s from complications of sepsis, with history of dementia in her latter years. Maternal grandfather in his 90s, with history of coronary artery disease, diagnosed in his 80s. Review of Systems: Fatigue with daytime somnolence of the past 12-18 months, without improvement following several medication adjustments; she has snored intermittently but reports that and evaluation for sleep apnea was negative. She naps on weekends for 2 hours each afternoon. Since beginning a smart watch program that tracks diet and exercise. Several weeks ago, she has added salad, yogurt, hummus, and granola to her diet but notes midabdominal stomach discomfort and constipation approximate2 hours after her meals. She denies nausea, vomiting, diarrhea, heartburn, and immediate correlation with any specific foods; her lactose intake has increased slightly. Her sleep has improved since her was diagnosed with sleep apnea and is now using CPAP; as a result, her sleep is less likely to be interrupted by his snoring. She notes nocturia ??1 but expresses no difficulty falling backto sleep. She reports an unrefreshed sensation upon awakening, even with usual sleep volume of at le ast 9 hours per night. Intermittent transient ear discomfort, affecting both sides, with symptoms, typically lasting for several seconds, several times per day; no correlation with sinus congestion, fever, hearing loss, discharge, or lymphadenopathy; she is no more likely to experience symptoms during episodes of allergic rhinitis. She has noted increased stress over the past 2-3 weeks, manifest as teeth clenching and a sense of chest pressure that response to deep breathing; she has not noted exertional chest discomfort, palpitations, lightheadedness, arm pain, or associated diaphoresis or dyspnea. She recently began meeting with a counselor on a regular basis to manage her stress. She regu larly visits with an outside auto body shop manager, reporting that Pap, pelvic, and breast examinations werecompleted within the past year. Covid (Pfizer) vaccinations were administered on 01/06, 01/13, 02/03, and 09/09/2021; bivalent Covid vaccination (Gigmax) booster was administered on 07/07/2022. Tdap was admi nistered in 04/2022. She is uncertain whether she received hepatitis B vaccinations in the past. Remainder of complete review of systems was negative. OBJECTIVE: Vital signs: Height 68 inches. Weight 168 pounds. Blood pressure 113/76 on average of 3 automated readings. Heart rate 60. Respiratory rate 16. Temperature 98.2 degrees. O2 saturation 99% on room air. General: Alert, neatly dressed and groomed, in no acute distress. HEENT: Atraumatic and normocephalic. Eyelids, pupils, and conjunctivae appeared normal. Lips, teethand gums appear normal. Oropharynx showed moist mucous membranes, without exudate or erythema. Tympanic membranes were not erythematous, without evidence of effusion. External canals showed no evidence of exudate or cerumen. Neck: Supple, without thyromegaly, mass, or bruit. No cervical or supraclavicular lymphadenopathy. Back: No spinal or costovertebral angle tenderness. Chest: Clear to auscultation and percussion. Normal respiratory effort. Cardiovascular: No jugular venous distention. Regular rate and rhythm, normal S1, S2 without murmur. Abdomen: Bowel sounds positive; soft, nontender, without rebound, guarding, hepatosplenomegaly or mass. Extremities: No cyanosis or edema. Pelvic and breasts: Examinations were deferred; followed by outside auto body shop manager. Skin: Examination was deferred; full evaluation was completed earlier in day through dermatology clinic. Neurologic: Cranial nerves II-XII were grossly intact. Sensory and motor examinations were normal. Normal gait. Mini-cog score was 5/5. Psychiatric: Alert and oriented ??3. Normal affect. Judgment and insight intact. PHQ-2 score was 0. Potassium 3.7, sodium level pending, creatinine 1.05 (0.51-0.95), cystatin C1.0 (0.6-1.0), alkalinephosphatase 45, ALT 10, cholesterol 168, triglycerides 62, HDL 64, LDL 92, cholesterol/HDL 2.6, glucose 91, TSH 1.52, 25-hydroxy vitamin D 39, white blood cell count 4300, hemoglobin 13.0, platelets 213,000, HIV and hepatitis C screens nonreactive. EKG was unremarkable. Spirometry showed an FEV1 of 3.03, with an FVC of 3.77; readings were 96% and98% of predicted values, respectively. Mammography showed heterogeneously dense tissue; interpreted as negative; 1-year follow-up recommended. Audiology evaluation showed normal hearing bilaterally. Preliminary DEXA results showed normal bone density. Body composition analysis showed 36.8% fat (70th percentile); body mass index was 25.5. April, readings showed 39% fat (80th percentile). ASSESSMENT: 1. Fatigue and daytime somnolence. She describes adequate sleep volume with a single interruption for nocturia without difficulty falling back to sleep. Previous evaluation for sleep apnea was negative. She describes significant ongoing stress. In the setting of normal TSH, hemoglobin, and other biochemical tests, we agreed that she would proceed with a plan to address management of stress with continued visits with her counselor and self-care measures as outlined at the time of her appointment; she will attempt to follow closely usual sleep hygiene measures, as reviewed at the time of her appointment. In particular, she was advised to avoid daytime naps, while continuing to increase her levels of exercise, and managing stress. She agrees to pursue further evaluation if these measures do not lead to improvement of symptoms over the next 2 months. 2. Abdominal cramping. Noted over the past few weeks with initiation of a new diet and exercise regimen. Symptoms are relatively mild and not noted in a pattern suggestive of biliary colic, GERD, or gastroenteritis. History is not suggestive of Helicobacter pylori, Giardia or Clostridium difficile.We reviewed the list of FODMAPS foods, and agreed that she would maintain a food journal, with particular attention to these foods. She will consider a trial of a lactose-free diet for 10 days. We discussed management of lactose intolerance and other food intolerances. If a clear cause for her symptoms cannot be identified over the next 6-8 weeks, or in the event of progressive symptoms, she agrees to pursue further evaluation. 3. Stress. Long-standing intermittent symptoms, more pronounced over the past 2- 3 weeks. Manifestations typically include clenching of teeth and a sense of chest pressure that subsides with slow, deep breathing. We reviewed recommended self-care strategies for stress management and the importance of continued visits with her counselor. She will be advised to pursue further evaluation in the eventof any exertional symptoms, progressive symptoms despite these measures, or new manifestations. 4. Overweight. Body fat percentage and percentile. Both have improved over the past year. She was encouraged to continue her efforts to increase her levels of exercise, while modifying diet. Strategies for reducing body fat through modification of diet were reviewed in detail. We reviewed the rolesof various types of exercise, including the muscle-building and fat-burning effect of strength training and the fat-burning effect of subthreshold exercise, along with the time economy associated with high-intensity interval training. 5. Preventive care. Pap, pelvic, breast examinations are scheduled with her outside auto body shop manager. Irecommended vitamin D3, 50 mcg daily, while maintaining daily calcium intake of 1200 mg, preferablyfrom dietary sources. If testing today shows that she is not immune, she will be advised to schedule hepatitis B vaccination series. Otherwise, immunization status is up-to-date. As noted above, she was encouraged to continue her modification of diet and exercise regimens. PLAN: See above. ~SRT documented in this encounter Nursing Notes * Clair Angulo CMA - 04/30/2023 1:30 PM CDT Chief Complaint Patient presents with ??? Physical Patient is here for annual physical. Clair Joseph CMA 8:01 AM on 04/30/2023 * Clair Angulo CMA - 04/30/2023 1:30 PM CDT AHA BP 1st 113/77 2nd 115/78 3rd 113/75 Average 113/76 Clair Joseph CMA 8:03 AM on 04/30/2023 documented in this encounter Plan of Treatment Upcoming Encounters Date Type Department Care Team (Late st Contact Info) Description 01/02/2024 10:00 AM CDT Office Visit [facility] [address] [place] [address] Lyssa Delcid MD [address] [place] [address] Scheduled Orders Name Type Priority Associated Diagnoses Orde r Schedule Routine UA with micro reflex to culture Lab Routine Elevated serum creatinine Expected: 04/30/2023 (Approximate), Expires: 04/30/2024 documented as of this encounter Procedures Procedure Name Priority Date/Time Associated Diagnosis Comments CBC WITH PLATELETS AND DIFFERENTIAL Routine 04/30/2023 7:50 AM CDT Encounter for preventative adult health care examination HEPATITIS B SURFACE ANTIBODY Add-On 04/30/2023 7:50 AM CDT Encounter for preventative adult health care examination HIV ANTIGEN ANTIBODY COMBO Routine 04/30/2023 7:50 AM CDT Encounter for preventative adult health care examination CBC WITH PLATELETS & DIFFERENTIAL Routine 04/30/2023 7:50 AM CDT Encounter for preventative adult health care examination VITAMIN D DEFICIENCY SCREENING Routine 04/30/2023 7:50 AM CDT Encounter for preventative adult health care examination TSH Routine 04/30/2023 7:50 AM CDT Encounter for preventative adult health care examination POTASSIUM Add-On 04/30/2023 7:50 AM CDT Medication side effects LIPID REFLEX TO DIRECT LDL PANEL Routine 04/30/2023 7:50 AM CDT Encounter for preventative adult health care examination CYSTATIN C WITH GFR Add-On 04/30/2023 7 :50 AM CDT Elevated serum creatinine CREATININE Routine 04/30/2023 7:50 AM CDT Encounter for preventative adult health care examination ALT Routine 04/30/2023 7:50 AM CDT Encounter for preventative adult health care examination ALKALINE PHOSPHATASE Routine 04/30/2023 7:50 AM CDT Encounter for preventative adult health care examination GLUCOSE Routine 04/30/2023 7:50 AM CDT Encounter for preventative adult health care examination SODIUM Add-On 04/30/2023 7:50 AM CDT Medication side effects documented in this encounter Results * Hepatitis B Surface Antibody (04/30/2023 7:50 AM CDT) Hepatitis B Surface Antibody Instrument Value 1.96 <8.00 m[IU]/mL 05/01/2023 1:24 PM CDT SPECIALTY CORE/PROT/END O Hepatitis B Surface Antibody Nonreactive 05/01/2023 1:24 PM CDT [facility] CORE/PROT/END O Comment:No antibody detected when the value is less than 8.00 mIU/mL. Blood STRUCTURE OF RIGHT UPPER LIMB / Unknown Venipuncture / Unknown 04/30/2023 7:50 AM CDT 04/30/2023 8:00 AM CDT Darien Duval MD LAB - BLOOD OR DERABLES SPECIALTY CORE/PROT/ENDO Special[facility] Core/Prot/Endo [address] [facility] [place] [address] [phone] * Sodium (04/30/2023 7:50 AM CDT) Pathologist [facility] Sodium 141 136 - 145 mmol/L 04/30/2023 10:56 PM CDT LABORATORY Blood STRUCTURE OF RIGHT UPPER LIMB / Unknown Venipuncture / Unknown 04/30/2023 7:50 AM CDT 04/30/2023 8:00 AM CDT Darien Duval MD LAB - BLOOD OR DERABLES LABORATORY [facility] [facility] [address] [facility], [address] [address], [facility] [phone] * Potassium (04/30/2023 7:50 AM CDT) Pathologist [facility] Potassium 3.7 3.4 - 5.3 mmol/L 04/30/2023 1:26 PM CDT [facility] Blood STRUCTURE OF RIGHT UPPER LIMB / Unknown Venipuncture / Unknown 04/30/2023 7:50 AM CDT 04/30/2023 8:00 AM CDT Darien Duval MD LAB - BLOOD OR DERABLES [facility] - [address] [place] [address] * Cystatin C with GFR (04/30/2023 7:50 AM CDT) Cystatin C 1.0 0.6 - 1.0 mg/L 04/30/2023 5:22 PM CDT [facility] GFR Calculated with Cystatin C 78 >=60 mL/min/1.7 3m2 04/30/2023 5:22 PM CDT [facility] Blood STRUCTURE OF RIGHT UPPER LIMB / Unknown Venipuncture / Unknown 04/30/2023 7:50 AM CDT 04/30/2023 8:00 AM CDT Narrative [facility] - 04/30/2023 5:22 PM CDT eGFRcys in adults is calculated using the 2012 CKD-EPI cystatin c equation which includes age and gender (Jeff et al., NEJM, DOI: 10.1056/ZIXRtc8025255) Darien Duval MD LAB - BLOOD OR DERABLES [facility] [address] [place] [address], [address] [phone], [facility] [phone] * CBC with platelets and differential (04/30/2023 7:50 AM CDT) WBC Count 4.3 4.0 - 11.0 10e3/uL 04/30/2023 8:04 AM CDT [facility] RBC Count 4.24 3.80 - 5.20 10e6/uL 04/30/2023 8:04 AM CDT [facility] Hemoglobin 13.0 11.7 - 15.7 g/dL 04/30/2023 8:04 AM CDT [facility] Hematocrit 39.0 35.0 - 47.0 % 04/30/2023 8:04 AM CDT [facility] MCV 92 78 - 100 fL 04/30/2023 8:04 AM CDT [facility] MCH 30.7 26.5 - 33.0 pg 04/30/2023 8:04 AM CDT [facility] MCHC 33.3 31.5 - 36.5 g/dL 04/30/2023 8:04 AM CDT [facility] RDW 12.6 10.0 - 15.0 % 04/30/2023 8:04 AM CDT [facility] Platelet Count 213 150 - 450 10e3/uL 04/30/2023 8:04 AM CDT [facility] % Neutrophils 56 % 04/30/2023 8:04 AM CDT [facility] % Lymphocytes 34 % 04/30/2023 8:04 AM CDT [facility] % Monocytes 6 % 04/30/2023 8:04 AM CDT [facility] % Eosinophils 3 % 04/30/2023 8:04 AM CDT [facility] % Basophils 1 % 04/30/2023 8:04 AM CDT [facility] % Immature Granulocytes 0 % 04/30/2023 8:04 AM CDT [facility] NRBCs per 100 WBC 0 <1 /100 023 8:04 AM CDT [facility] Absolute Neutrophils 2.4 1.6 - 8.3 10e3/uL 04/30/2023 8:04 AM CDT [facility] Absolute Lymphocytes 1.4 0.8 - 5.3 10e3/uL 04/30/2023 8:04 AM CDT [facility] Absolute Monocytes 0.3 0.0 - 1.3 10e3/uL 04/30/2023 8:04 AM CDT [facility] Absolute Eosinophils 0.1 0.0 - 0.7 10e3/uL 04/30/2023 8:04 AM CDT [facility] Absolute Basophils 0.0 0.0 - 0.2 10e3/uL 04/30/2023 8:04 AM CDT [facility] Absolute Immature Granulocytes 0.0 <=0.4 10e3/uL 04/30/2023 8:04 AM CDT [facility] Absolute NRBCs 0.0 10e3/uL 04/30/2023 8:04 AM CDT [facility] Blood STRUCTURE OF RIGHT UPPER LIMB / Unknown Venipuncture / Unknown 04/30/2023 7:50 AM CDT 04/30/2023 8:00 AM CDT Darien Duval MD LAB - BLOOD OR DERABLES [facility] [address] [facility] 1st [place] [address] * HIV Antigen Antibody Combo [[id number]] (04/30/2023 7:50 AM CDT) HIV Antigen Antibody Combo Nonreactive Nonreactive 04/30/2023 12:41 PM CDT SPECIALTY CORE/PROT/EN DO Comment:HIV-1 p24 Ag & HIV-1 /HIV-2 Ab Not Detected Blood STRUCTURE OF RIGHT UPPER LIMB / Unknown Venipuncture / Unknown 04/30/2023 7:50 AM CDT 04/30/2023 8:00 AM CDT Darien Duval MD LAB - BLOOD OR DERABLES [facility]/PROT/ENDO [facility] Core/Prot/Endo [address] [facility] [address], [address] [place] [address] * ALT (04/30/2023 7:50 AM CDT) ALT 10 0 - 50 U/L 04/30/2023 8:24 AM CDT [facility] Comment:Reference intervals for [...] Duval MD LAB - BLOOD OR DERABLES [facility] - [address] 1st [place] [address] * Alkaline phosphatase (04/30/2023 7:50 AM CDT) Alkaline Phosphatase 45 35 - 104 U/L 04/30/2023 8:24 AM CDT [facility] Blood STRUCTURE OF RIGHT UPPER LIMB / Unknown Venipuncture / Unknown 04/30/2023 7:50 AM CDT 04/30/2023 8:00 AM CDT Darien Duval MD LAB - BLOOD OR DERABLES Performing Organization Address City/[facility]/ZIP Co de Phone Number [facility] - [address] 1st [place] [address] * (ABNORMAL) Creatinine (04/30/2023 7:50 AM CDT) Creatinine 1.05(H) 0.51 - 0.95 mg/dL 04/30/2023 8:24 AM CDT [facility] GFR Estimate 68 >60 mL/min/1.7 3m2 04/30/2023 8:24 AM CDT [facility] Blood STRUCTURE OF RIGHT UPPER LIMB / Unknown Venipuncture / Unknown 04/30/2023 7:50 AM CDT 04/30/2023 8:00 AM CDT Darien Duval MD LAB - BLOOD OR DERABLES [facility] - [address] 1st [place] [address] * Glucose (04/30/2023 7:50 AM CDT) Pathologist [facility] Glucose 91 70 - 99 mg/dL 04/30/2023 8:24 AM CDT [facility] Patient Fasting > 8hrs? Unknown 04/30/2023 8:24 AM CDT [facility] Blood STRUCTURE OF RIGHT UPPER LIMB / Unknown Venipuncture / Unknown 04/30/2023 7:50 AM CDT 04/30/2023 8:00 AM CDT Darien Duval MD LAB - BLOOD OR DERABLES [facility] [address] 1st [place] [address] * TSH (04/30/2023 7:50 AM CDT) Pathologist [facility] TSH 1.52 0.30 - 4.20 uIU/mL 04/30/2023 8:45 AM CDT [facility] Blood STRUCTURE OF RIGHT UPPER LIMB / Unknown Venipuncture / Unknown 04/30/2023 7:50 AM CDT 04/30/2023 8:00 AM CDT Darien Duval MD LAB - BLOOD OR DERABLES [facility] [address] 1st [place] [address] * Vitamin D Deficiency (04/30/2023 7:50 AM CDT) Pathologist [facility] Vitamin D, Total (25-Hydroxy) 39 20 - 75 ug/L 04/30/2023 12:47 PM CDT SPECIALTY CORE/PROT/ENDO Blood STRUCTURE OF RIGHT UPPER LIMB / Unknown Venipuncture / Unknown 04/30/2023 7:50 AM CDT 04/30/2023 8:00 AM CDT Narrative SPECIALTY CORE/PROT/ENDO - 04/30/2023 12:47 PM CDT Season, race, dietary intake, and treatment affect the concentration of 31-bhflwcy-Erprkds D. Values may decrease during winter months [...] Duval MD LAB - BLOOD OR DERABLES SPECIALTY CORE/PROT/ENDO Specialty Core/Prot/Endo [address] [facility] [place], [address] [place] [address] * Lipid panel reflex to direct LDL Fasting (04/30/2023 7:50 AM CDT) Cholesterol 168 <200 mg/dL 04/30/2023 8:24 AM CDT [facility] Triglycerides 62 <150 mg/dL 04/30/2023 8:24 AM CDT [facility] Direct Measure HDL 64 >=50 mg/dL 2022 8:24 AM CDT [facility] LDL Cholesterol Calculated 92 <=100 mg/dL 04/30/2023 8:24 AM CDT [facility] Non HDL Cholesterol 104 <130 mg/dL 04/30/2023 8:24 AM CDT [facility] Blood STRUCTURE OF RIGHT UPPER LIMB / Unknown Venipuncture / Unknown 04/30/2023 7:50 AM CDT 04/30/2023 8:00 AM CDT Narrative [facility] - 04/30/2023 8:24 [...] - BLOOD OR DERABLES Performing Organization Address City/[facility]/ZIP Co de Phone Number [facility] [address] [place] [address] 1st [place] [address] * Hepatitis C antibody (04/30/2023 7:50 AM [...] [facility] C[facility]/PROT/ENDO [facility] Core/Prot/Endo [facility] [address] Building, Room 3-[address] [phone] documented in this encounter Visit Diagnoses Diagnosis Encounter for preventative adult health care examination- Primary Elevated serum creatinine Other nonspecific findings on examination of blood Medication side effects Unspecified adverse effect of unspecified drug, medicinal and biological substance Polycystic kidney disease Polycystic kidney, unspecified type documented in this encounter Care Teams [employer] Internship Relationship Specialty Start Date End Date Alda Hawkins MD [address] [address] PCP - General Internal Medicine 04/30/23 Alda Hawkins MD [address] [place] [address] Assigned PCP 03/23/22 Matthew Ayala OD [address] [place] [address] [phone] Assigned Surgical Provider 02/10/23 documented as of this encounter
--- OUTSIDE RECORDS SUMMARY | 2023-11-03 10:27 | XMS_ITS | Clinical Summary ---
Author Name Unknown Organization [facility] Address [address] [place] [address] Care Team Providers Care Job Developer For Deaf Adults Name Role Phone Elsewhere, Pcp Primary Care Provider Unavailabl e Source Comments Patient records contain information from all sites at [facility]. For routine questions regarding patient records, call [phone] during business hours, M-F 8:00 AM - 5:00 PM Central Time. Record requests for emergency care only can be directed to [phone] at any time.[facility] Allergies Active Allergy Reactions Criticality Noted Date [...] morning dosage. 56 tablet 11 08/01/2023 Active Encounters Date Type Department Care Team Description 08/31/2023 Clinical Communication Division of Nephrology and Hypertension in [place], [place] [address] [place] [address] Eldon Vazquez M.D., Ph.D. Pre-visit Testing Orders from Last 3 Months Family History Medical History Relation Name Comments ADD Brother Esequiel Parra Age 10 Other Brother Esequiel Parra Bicuspid heart valve Hypertension Father Jaxon Parra 50s Coronary artery disease Maternal Grandfather Tashi Harris sen Quad bypass in 70s Hypertension Mother Lakshmi Parra 60s Other Mother Lakshmi Parra Pacemaker from left branch bundle block Thyroid disease Mother Lakshmi Parra Dementia Paternal Grandmother Deena Parra Late 70s Stroke Paternal Grandmother Deena Parra 80s Relation Name Status Comments Brother Esequiel Parra Father Jaxon Parra Maternal Grandfather Tashi Francis Mother Lakshmi Parra Paternal Grandmother Deena Parra Social History Tobacco Use Types Packs/Day Years [...] often do you attend chur ch or hindu services? Never 06/23/2022 Do you belong to any clubs o r organizations such as latter-day groups, unions, fraternal or athletic groups, or [...] and heating? Not hard at all 07/26/2023 [facility] [place] of Occupat ional Health - Occupational Stress [...] your living situation today? I have a [facility] place to live 07/26/2023 Education Answer Date [...] 08/01/2023 2:04 PM CDT Plan of Treatment Health Maintenance Due Date Last Done Comments HIV Screening 1980 Hepatitis B Vaccines (1 of 3 - 3-dose series) 1980 Hepatitis C Screening 1980 Cervical Cancer Screening 08/16/2009 08/16/2006 COVID-19 Vaccine ( season) 2023 07/07/2022, 09/09/2021, 02/03/2021, Additional history exists Depression Screening (Annual PHQ-2) 10/08/2023 Mammogram 04/30/2024 04/30/2023, 08/17/2020 Creatinine Level (Kidney Function Test) 08/01/2024 08/01/2023, 07/02/2023, 04/30/2023, Additional history exists Potassium Level 08/01/2024 08/01/2023, 06/09, 04/30/2023, Additional history exists Sodium Level 08/01/2024 08/01/2023, 06/09, 04/30/2023, Additional history exists Lipid (Cholesterol) Screening 08/01/2028 08/01/2023, 04/30/2023, 04/12/2022 DTaP,Tdap,and Td Vaccines (3 - Td or Tdap) 04/12/2032 04/12/2022, 07/21/2010 Influenza Vaccine Completed 06/25/2023, , 07/24/2011, Additional history exists HPV Vaccines Aged Out No longer eligi ble based on patient's age to complete this topic Pneumococcal vaccine (0-64 years) Aged Out No longer eligible based on patient's age to complete this topic Care Teams Job Developer For Deaf Adults Relationship Specialty Start Date End Date Elsewhere, Pcp PCP - General Internal Medicine 08/01/23
--- OUTSIDE RECORDS SUMMARY | 2023-11-03 10:28 | XMS_ITS | Encounter Summary ---
Author Name Unknown Organization [facility] Address [address] [place] [address] Care Team Providers Care Sales Executive Insurance Name Role Phone Elsewhere, Pcp Primary Care Provider Unavailabl e Encounter Details Date Type Department Care Team (Latest Contact Info) Description 08/01/2023 9:30 AM CDT - 08/01/2023 9:56 AM CDT Hospital Encounter Department of Laboratory Medicine and Pathology, [facility], in [place], [place] [address] [place] [address] Eldon Vazquez M.D., Ph.D. [address] [place] [address] Polycystic Kidney Autosomal Dominant; Other Secondary Hypertension Discharge Disposition: Home or Self Care Social [...] often do you attend chur ch or advent services? Never 06/23/2022 Do you belong to any clubs o r organizations such as taoism groups, unions, fraternal or athletic groups, or [...] and heating? Not hard at all 07/26/2023 [facility] of Occupat ional Health - Occupational Stress [...] your living situation today? I have a [facility] place to live 07/26/2023 Education Answer [...] Device by intrauterine route continuously. 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 COMPREHENSIVE METABOLIC PANEL, S/P Routine 08/01/2023 9:46 AM CDT 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 documented in this encounter Results * Lipid Panel (08/01/2023 9:46 AM CDT) Pathologist [facility] Triglycerides 90 mg/dL 08/01/2023 10:49 AM CDT DTL Comment: ----REFERENCE VALUE---- Normal: <150 mg/dL Borderline High: 150-199 mg/dL High: 200-499 mg/dL Very High: > or =500 mg/dL Cholesterol, Total 196 mg/dL 2022 10:49 AM CDT DTL Comment: ----REFERENCE VALUE---- Desirable: < 200 mg/dL Borderline High: 200 - 239 mg/dL High: > or = 240 mg/dL Cholesterol, LDL, Calculated 115 mg/dL 08/01/2023 10:49 AM CDT DTL Comment: ----REFERENCE VALUE---- Desirable: <100 mg/dL Above Desirable: 100-129 mg/dL Borderline High: 130-159 mg/dL High: 160-189 mg/dL Very High: >=190 mg/dL ----ADDITIONAL INFORMATION---- LDL cholesterol calculated using the Robles/NIH equation. Cholesterol, HDL, S 65 >=50 mg/dL 08/01/2023 10:49 AM CDT DTL Cholesterol, Non-HDL, Calculated 131 mg/dL 08/01/2023 10:49 AM CDT DTL Comment: ----REFERENCE VALUE---- Desirable: <130 mg/dL Above Desirable: 130-159 mg/dL Borderline High: 160-189 mg/dL High: 190-219 mg/dL Very High: > or =220 mg/dL Fasting (8 HR or more) Yes 08/01/2023 10:25 AM CDT DTL Blood (Blood, Venous) 08/01/2023 9:46 AM CDT 08/01/2023 10:25 AM CDT Eldon Vazquez M.D., Ph.D. LAB BLOOD A DD-ON [facility] [address] [place] [address], [facility] DTL [facility] [address] [place] [address] * CBC with Differential, Blood (08/01/2023 9:46 AM CDT) Hemoglobin 13.5 11.6 - 15.0 g/dL 08/01/2023 10:34 AM CDT DTL Hematocrit 40.8 35.5 - 44.9 % 08/01/2023 10:34 AM CDT DTL Erythrocytes 4.42 3.92 - 5.13 x10(12)/L 08/01/2023 10:34 AM CDT DTL MCV 92.3 78.2 - 97.9 fL 08/01/2023 10:34 AM CDT DTL RBC Distrib Width 12.8 12.2 - 16.1 % 08/01/2023 10:34 AM CDT DTL Platelet Count 211 157 - 371 x10(9)/L 08/01/2023 10:34 AM CDT DTL Leukocytes 5.7 3.4 - 9.6 x10(9)/L 08/01/2023 10:34 AM CDT DTL Neutrophils 3.55 1.56 - 6.45 x10(9)/L 08/01/2023 10:34 AM CDT DHPM Lymphocytes 1.63 0.95 - 3.07 x10(9)/L 08/01/2023 10:34 AM CDT DTL Monocytes 0.36 0.26 - 0.81 x10(9)/L 08/01/2023 10:34 AM CDT DTL Eosinophils 0.08 0.03 - 0.48 x10(9)/L 08/01/2023 10:34 AM CDT DTL Basophils 0.04 0.01 - 0.08 x10(9)/L 08/01/2023 10:34 AM CDT DTL Blood (Blood, Venous) 08/01/2023 9:46 AM CDT 08/01/2023 10:07 AM CDT Eldon Vazquez M.D., Ph.D. LAB BLOOD A DD-ON Performing Organization Address City/[facility]/ZIP Co de Phone Number [facility] [address] [place] [address], [facility] DTA[facility] [address] [place], [place] [phone] [place] [address] 200 [place] [address] * Phosphorus Inorganic (08/01/2023 9:46 AM CDT) Phosphorus (Inorganic), S 3.4 2.5 - 4.5 mg/dL 08/01/2023 10:49 AM CDT DTL Blood (Blood, Venous) 08/01/2023 9:46 AM CDT 08/01/2023 10:25 AM CDT Eldon Vazquez M.D., Ph.D. LAB BLOOD A DD-ON Performing Organization Address [facility] Co de Phone Number [facility] [address] [place] [address], [facility] [address] [place] [address] * Uric Acid (08/01/2023 9:46 AM CDT) Uric Acid, S 4.5 2.7 - 6.1 mg/dL 08/01/2023 10:49 AM CDT DTL Blood (Blood, Venous) 08/01/2023 9:46 AM CDT 08/01/2023 10:25 AM CDT Eldon Vazquez M.D., Ph.D. LAB BLOOD A DD-ON [facility] [address] [place] [address], [place] DTL [facility] [address] [place] [address] * (ABNORMAL) Comprehensive Metabolic Panel (08/01/2023 9:46 AM CDT) Potassium, S 4.5 3.6 - 5.2 mmol/L 08/01/2023 10:49 AM CDT DTL Sodium, S 139 135 - 145 mmol/L 08/01/2023 10:49 AM CDT DTL Chloride, S 104 98 - 107 mmol/L 08/01/2023 10:49 AM CDT DTL Bicarbonate, S 25 22 - 29 mmol/L 08/01/2023 10:49 AM CDT DTL Anion Gap 10 7 - 15 08/01/2023 10:49 AM CDT DTL BUN (Blood Urea Nitrogen), S 7 6 - 21 mg/dL 08/01/2023 10:49 AM CDT DTL Creatinine 1.05(H) 0.59 - 1.04 mg/dL 08/01/2023 10:49 AM CDT DTL Estimated GFR (eGFR) 68 >=60 mL/min/BS A 08/01/2023 10:49 AM CDT DTL Comment: Estimated GFR calculated using the 2020 CKD_EPI creatinine equation. Calcium, Total, S 9.3 8.6 - 10.0 mg/dL 08/01/2023 11:19 AM CDT DTL Glucose, S 79 70 - 140 mg/dL 08/01/2023 11:16 AM CDT DTL Protein, Total, S 6.9 6.3 - 7.9 g/dL 08/01/2023 10:49 AM CDT DTL Albumin, S 4.5 3.5 - 5.0 g/dL 08/01/2023 10:49 AM CDT DTL Aspartate Aminotransferase (AST), S 17 8 - 43 U/L 08/01/2023 10:49 AM CDT DTL Alkaline Phosphatase, S 44 35 - 104 U/L 08/01/2023 10:49 AM CDT DTL Alanine Aminotransferase (ALT), S 13 7 - 45 U/L 08/01/2023 10:49 AM CDT DTL Bilirubin, Total, S 0.6 0.0 - 1.2 mg/dL 08/01/2023 10:49 AM CDT DTL Blood (Blood, Venous) 08/01/2023 9:46 AM CDT 08/01/2023 10:25 AM CDT Eldon Vazquez M.D., Ph.D. 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
--- OUTSIDE RECORDS SUMMARY | 2023-11-03 10:28 | XMS_ITS | Encounter Summary ---
Author Name Unknown Organization [facility] Address [address] [place] [address] Care Team Providers Care Sergeant Of Officers Name Role Phone Elsewhere, Pcp Primary Care Provider Unavailabl e Encounter Details Date Type Department Care Team (Latest Contact Info) Description 08/01/2023 9:30 AM CDT - 08/01/2023 9:56 AM CDT Hospital Encounter Department of Laboratory Medicine and Pathology, [facility], in [place], [place] [address] [place] [address] Eldon Vazquez M.D., Ph.D. [address] [place] [address] Polycystic Kidney Autosomal Dominant; Other Secondary Hypertension [...] often do you attend chur ch or anabaptism services? Never 06/23/2022 Do you belong to any clubs o r organizations such as denominational groups, unions, fraternal or athletic groups, or [...] and heating? Not hard at all 07/26/2023 [facility] of Occupat ional Health - Occupational [...] your living situation today? 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 LAB URINE O LEIF Performing Organization Address City/[facility]/[place] [address], [place] [address] * pH, Urine (08/01/2023 9:52 AM CDT) pH, U 6.7 4.5 - 8.0 08/01/2023 11: 32 AM CDT DTL Urine 08/01/2023 9:52 AM CDT 08/01/2023 10:42 AM CDT Eldon Vazquez M.D., Ph.D. LAB URINE O LEIF [facility] [address] [place] [address], [facility]TB[facility] [address] [place] [address] * (ABNORMAL) Osmolality, Urine (08/01/2023 9:52 AM CDT) Osmolality, U 114(L) 150 - 1150 mOsm/kg 08/01/2023 11:32 AM CDT DTL Urine 08/01/2023 9:52 AM CDT 08/01/2023 10:42 AM CDT Eldon Vazquez M.D., Ph.D. LAB URINE O RDERABLES [facility] [address] [place] [address], [facility] [address] [place] [address] * (ABNORMAL) Microscopic Automated (08/01/2023 9:52 AM CDT) Microscopy Abnormal 08/01/2023 11:12 AM CDT DTL RBC <3 <3 /hpf 08/01/2023 11:12 AM CDT DTL WBC 11-20(A) /hpf 08/01/2023 11:12 AM CDT DTL Comment: ----REFERENCE VALUE---- 1-3 ??(Males) 1-10 (Females) Squamous Epithelial Cells, U 4-10 /hpf 08/01/2023 11:12 AM CDT DTL Bacteria Present(A) 08/01/2023 11:12 AM CDT DTL Urine 08/01/2023 9:52 AM CDT 08/01/2023 10:42 AM CDT Eldon Vazquez M.D., Ph.D. LAB URINE O RDERABLES [facility] [address] [place] [address], [facility] [address] [place] [address] * (ABNORMAL) Urinalysis with Microscopic: Urine, Midstream (08/01/2023 9:52 AM CDT) Source Urine, Urine, Midstream 08/01/2023 10:42 AM CDT DTL Color, U Yellow 08/01/2023 10:42 AM CDT DTL Clarity, U Clear 08/01/2023 10:42 AM CDT DTL Protein, U 4 <26 mg/dL 08/01/2023 11:37 AM CDT DTL Protein/Osmol ality 0.35 <0.42 ratio 08/01/2023 11:37 AM CDT DTL Predicted 24 HR Protein, U 258(H) <229 mg/24 h 08/01/2023 11:37 AM CDT DTL Predicted Range 64-1046 mg/24 h 08/01/2023 11:37 AM CDT DTL Urine (Urine, Midstream) 08/01/2023 9:52 AM CDT 08/01/2023 10:42 AM CDT Eldon Vazquez M.D., Ph.D. 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
--- OUTSIDE RECORDS SUMMARY | 2023-11-03 10:28 | XMS_ITS | Encounter Summary ---
Author Name Unknown Organization [facility] Address [address] [place] [address] Care Team Providers Care Assistant Field Hockey Coach Name Role Phone Unavailable Primary Care Provider Unavailabl e Reason for Visit * Reason Comments Med Refill Encounter Details Date Type Department Care Team (Late st Contact Info) Description 07/09/2023 Refill Division of Nephrology and Hypertension in [place], [place] [address] [place] [phone] Eldon Vazquez M.D., Ph.D. [address] [place] [address] Med Refill Social History Tobacco Use Types Packs/Day Years [...] often do you attend chur ch or mu-ism services? Never 06/23/2022 Do you belong to any clubs o r organizations such as amish groups, unions, fraternal or athletic groups, or [...] care, and heating? Not hard at all 06/23/2022 [facility] [place] of Occupat ional Health - Occupational Stress [...] to strenuous exercise (like a brisk walk)? 0 days 06/23/2022 On average, how many minutes do you engage in exercise at this level? 0 min 06/23/2022 Hunger Vital Sign Answer Date Recorded Within the past 12 months, y ou worried that your food would run out before you got the money to buy more. Never true 06/23/20 22 Within the past 12 months, t he food you bought just didn't last and you didn't have money to get more. Never true 06/23/2022 PRAPARE - Transportation Answer Date Re corded In the past 12 months, has l ack of transportation kept you from medical appointments or from getting medications? No 06/08 In the past 12 months, has l ack of transportation kept you from meetings, work, or from getting things needed for daily living? No 06/23/2022 Housing Stability Vital Sign Answer Cristopher e Recorded In the last 12 months, was t here a time when you were not able to pay the mortgage or rent on time? No 06/23/2022 In the last 12 months, how many places have you lived? 1 06/23/2022 In the last 12 months, was t here a time when you did not have a steady place to sleep or slept in a nursing home (including now)? No 06/23/2022 Nutrition Answer Date Recorded Nutrition: EVOO Fat Source Yes 06/23 On average, how many serving s of fruits and vegetables do you eat per day (serving size is equal to 1 cup or approximately the size of a tennis ball)? 2-3 06/23/2022 Dental Answer Date Recorded Dental: Regular Dentist Yes 06/23/20 Employment Answer Date Recorded Employment status Employed and actively working without restrictions 06/23/2022 Education Answer Date Recorded What is the [...] on file documented as of this encounter Visit Diagnoses Diagnosis Other Secondary Hypertension documented in this encounter
--- OUTSIDE RECORDS SUMMARY | 2023-11-03 10:28 | XMS_ITS | Encounter Summary ---
Author Name Unknown Organization [facility] Address [address] [place] [address] Care Team Providers Care Professor Of Criminal Justice Name Role Phone Unavailable Primary Care Provider Unavailabl e Reason for Visit * Reason Onset Date Comments Follow-up Orders 12/12/2022 Encounter Details Date Type Department Care Team (Latest Contact Info) Description 12/12/2022 Clinical Communication Division of Nephrology and Hypertension in [place], [place] [address] [place] [address] Sugey Avendaño M.D., Ph.D. [address] [place] [address] Follow-up Orders Social History Tobacco Use Types Packs/Day [...] often do you attend chur ch or mormonism services? Never 06/23/2022 Do you belong to any clubs o r organizations such as yarsani groups, unions, fraternal or athletic groups, or [...] and heating? Not hard at all 06/23/2022 [facility] of Occupat ional Health - Occupational [...] place to sleep or slept in a correction (including now)? No 06/23/2022 Nutrition Answer Date [...] AM CDT documented as of this encounter Miscellaneous Notes * Telephone Encounter - Alexa Quinones - 12/12/2022 3:03 PM CST Lab order was faxed to [facility] at [phone]. Labs to be completed every 3 months for a count of 4. CMP MIXER documented in this encounter Plan of Treatment Not on file documented as of this encounter Visit Diagnoses Not on filedocumented in this encounter
--- OUTSIDE RECORDS SUMMARY | 2023-11-03 10:28 | XMS_ITS | Encounter Summary ---
Author Name Unknown Organization [facility] Address [address] [place] [address] Care Team Providers Care Switch Operator Name Role Phone Elsewhere, Pcp Primary Care Provider Unavailabl e Reason for Visit * Reason Comments Med Refill Encounter Details Date Type Department Care Team ([facility] st Contact Info) Description 08/01/2023 Refill Division of Nephrology and Hypertension in [place], [place] [address] [place] [address] Alo Pearson R.N. [address] [place] [address] Med Refill Social History Tobacco Use Types [...] often do you attend chur ch or synagogue services? Never 06/23/2022 Do you belong to any clubs o r organizations such as religious groups, unions, fraternal or athletic groups, or [...] and heating? Not hard at all 07/26/2023 [facility] [place] of Occupat ional Health - Occupational Stress [...] your living situation today? I have a [facility] place to live 07/26/2023 Education Answer [...] Hypertension documented in this encounter Care Teams Switch Operator Relationship Specialty Start Date End Date Elsewhere, Pcp PCP - General Internal Medicine 08/01/23 documented as of this encounter
--- OUTSIDE RECORDS SUMMARY | 2023-11-03 10:28 | XMS_ITS | Encounter Summary ---
Author Name Unknown Organization [facility] Address [address] [place] [address] Care Team Providers Care Funeral Home Location Manager Name Role Phone Unavailable Primary Care Provider Unavailabl e Reason for Visit * Reason Comments Med Refill Encounter Details Date Type Department Care Team (Late st Contact Info) Description 02/11/2023 Refill Division of Nephrology and Hypertension in [place], [place] [address] [place] [phone] Eldon Vazquez M.D., Ph.D. [address] [place] [address] Med Refill Social History Tobacco Use Types [...] often do you attend chur ch or catholic services? Never 06/23/2022 Do you belong to any clubs o r organizations such as rastafarian groups, unions, fraternal or athletic groups, or [...] and heating? Not hard at all 06/23/2022 [facility] of Occupat ional Health - Occupational Stress [...] No 06/23/2022 Housing Stability Vital Sign Answer Critsopher e Recorded In the last 12 months, [...] place to sleep or slept in a penitentiary (including now)? No 06/23/2022 Nutrition Answer Date [...]
--- OUTSIDE RECORDS SUMMARY | 2023-11-03 10:28 | XMS_ITS | Encounter Summary ---
Author Name Unknown Organization [facility] Address [address] [place] [address] Care Team Providers Care Prompt Care Rn Name Role Phone Elsewhere, Pcp Primary Care Provider Unavailabl e Reason for Visit * Outpatient (Routine) - Closed Specialty Diagnoses / Procedures Referred By Contvania t Referred To Contact Nephrology and Hypertension Diagnoses 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 Eldon Vazquez M.D., Ph.D. [address] [place] [phone] [facility] Referral ID Status Reason Start Date Expiration Date Visits Re quested Visits Authorized [id number] Closed 07/06/2022 07/05/2025 1 1 Encounter Details Date Type Department Care Team (Latest Contact Info) Description 08/01/2023 2:00 PM CDT Office Visit Division of Nephrology and Hypertension in [place], [place] [address] [place] [address] Eldon Vazquez M.D., Ph.D. [address] [place] [phone] Pyuria (Primary Dx); Polycystic Kidney Autosomal Dominant; Other Secondary Hypertension Social History Tobacco Use Types Packs/Day Years [...] How often do you attend chur or adventism services? Never 06/23/2022 Do you belong to [...] and heating? Not hard at all 07/26/2023 [facility] - Occupational Stress [...] your living situation today? I have a [facility] place to live 07/26/2023 Education [...] Mass Index 25.49 08/01/2023 2:04 PM CDT documented in this encounter Progress Notes * Eldon Vazquez M.D., Ph.D. - 08/01/2023 2:00 PM CDT REASON FOR VISIT Autosomal dominant polycystic kidney disease SUBJECTIVE HISTORY OF PRESENT ILLNESS Ms. Borrero is a 42 y.o. female with ADPKD treated tolvaptan. She is tolerating the medication well with nocturia x1, but taking only 30/15 mg daily. Blood pressure is well controlled on candesartan 8mg daily. Review of systems is negative. No urinary tract symptoms. OBJECTIVE BP 107/75 Pulse 70 Temp 36.4 ??C (Tympanic) Ht 172.6 cm Wt 76 kg BMI 25.49 kg/m?? DIAGNOSTICS Laboratory results are overall satisfactory. Serum creatinine is 1.05 mg/dL but the blood sample was taken 1-2 hours after taking tolvaptan. The urinalysis shows pyuria with a squamous cells and bacteria present, possibly contamination. MRI of the abdomen shows total kidney volume of 936 mL compared to 919 mL 2 years ago. Some enlargement of polycystic liver although no measurements were taken. ASSESSMENT / PLAN 1. Autosomal dominant polycystic kidney disease 2. Well-controlled hypertension Continue current medications. Recheck in 1 year. Eldon Vazquez M.D., Ph.D. documented in this encounter Plan of Treatment Not on file documented as of this encounter Results * Bacterial Culture, Aerobic + Susceptibility, Urine (08/01/2023 3:01 PM CDT) Urine Culture Urogenital microbiota, susceptibilities not performed per laboratory criteria. 08/02/2023 12:36 PM CDT DTL Urine (Urine, Midstream) 08/01/2023 3:01 PM CDT 08/01/2023 3:33 PM CDT Comment:Specimen Source Site : Urine Eldon Vazquez M.D., Ph.D. LAB MICROBI OLY - GENERAL ORDERABLES [facility] [address] [place] [address], [facility] [address] [place] [address] documented in this encounter Visit Diagnoses Diagnosis Pyuria- Primary 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 documented in this encounter Care Teams Prompt Care Rn Relationship Specialty Start Date End Date Elsewhere, Pcp PCP - General Internal Medicine 08/01/23 documented as of this encounter
--- OUTSIDE RECORDS SUMMARY | 2023-11-03 10:28 | XMS_ITS | Encounter Summary ---
Author Name Unknown Organization [facility] Address [address] [place] [address] Care Team Providers Care Vp Name Role Phone Elsewhere, Pcp Primary Care Provider Unavailabl e Reason for Referral * MRI/CAT/PET Scan (Routine) - Closed Specialty Diagnoses / Procedures Referred By Contac t Referred To Contact Radiology Diagnoses 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 Procedures MR Abdomen without IV Contrast Eldon Vazquez M.D., Ph.D. [address] [place] [phone] [facility] Referral ID Status Reason Start Date Expiration Date Visits Re quested Visits Authorized [id number] Closed 1 1 Reason for Visit * MRI/CAT/PET Scan (Routine) - Closed Specialty Diagnoses / Procedures Referred By Contac t Referred To Contact Radiology Diagnoses 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 Procedures MR Abdomen without IV Contrast Eldon Vazquez M.D., Ph.D. [address] [place] [phone] [facility] Referral ID Status Reason Start Date Expiration Date Visits Re quested Visits Authorized [id number] Closed 1 1 Encounter Details Date Type Department Care Team (Latest Contact Info) Description 08/01/2023 9:57 AM CDT - 08/01/2023 2:39 PM CDT Hospital Encounter Department of Radiology, [facility], in [place], [place] [address] [place] [address] Eldon Vazquez M.D., Ph.D. 200 [place] [address] Polycystic Kidney Autosomal Dominant; Other Secondary Hypertension [...] week 06/23/2022 How often do you attend [facility] or rastafarian services? Never 06/23/2022 Do you belong to any clubs o r organizations such as zoroastrian groups, unions, fraternal or athletic groups, or [...] and heating? Not hard at all 07/26/2023 [facility] - Occupational Stress Questionnaire Answer Date Recorded [...] money to buy more. Never true 07/26/20 Within the past 12 months, t he [...] your living situation today? I have a [facility] place to live 07/26/2023 Education Answer [...] Procedure Name Priority Date/Time Associated Diagnosis Comments MR ABDOMEN WITHOUT IV CONTRAST RAD - Routine (most inpatients and all outpatients) 08/01/2023 11:13 AM CDT 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 documented in this encounter Results * MR Abdomen without IV Contrast (08/01/2023 11:13 AM CDT) Anatomical Region Laterality Modality Abdomen, Abdominal RST LOS, Abdominal ARZ LOS, Abdominal FLA LOS N/A Magnetic Resonance 08/01/2023 12:5 4 PM CDT Impressions 08/01/2023 1:02 PM CDT Known autosomal dominant polycystic kidney disease with innumerable cysts in the liver and kidneys. Narrative 08/01/2023 1:02 PM CDT EXAM: ??MR ABDOMEN WITHOUT IV CONTRAST COMPARISON: ??04/12/2021 FINDINGS: Numerous scattered cysts throughout the liver and in the kidneys including hemorrhage or proteinaceous cyst in the kidneys.. For reference, cyst in the left hepatic lobe measuring about 4 cm on image 11 series 4, previously 2.7 cm, right kidney interpolar region cyst measuring about 4.9 cm on image 36 series 4, previously 4.2 cm and left kidney upper pole cyst measuring about 3.6 cm on images 17 series 4, previously 3.2 cm when measured in same fashion. Unremarkable pancreas, gallbladder, spleen, and adrenals. Numerous cystic lesions are seen in the bilateral breasts. Trace bilateral pleural effusions. Small fat-containing periumbilical hernia. Kidney volumes: Total kidney 936 cc, right kidney 383 cc, left kidney 553 cc. Volume: 2000 cc. Procedure Note Javan Olivo M.D. - 08/01/2023 EXAM: MR ABDOMEN WITHOUT IV CONTRAST COMPARISON: 04/12/2021 FINDINGS: Numerous scattered cysts throughout the liver and in the kidneys includinghemorrhage or proteinaceous cyst in the kidneys.. For reference, cyst in the lefthepatic lobe measuring about 4 cm on image 11 series 4, previously 2.7 cm, right kidney interpolar regioncyst measuring about 4.9 cm on image 36 series 4, previously 4.2 cm and left kidney upper pole cystmeasuring about 3.6 cm on images 17 series 4, previously 3.2 cm when measured in same fashion. Unremarkable pancreas, gallbladder, spleen, and adrenals. Numerous cystic lesions are seen in the bilateral breasts. Trace bilateralpleural effusions. Small fat-containing periumbilical hernia. Kidney volumes: Total kidney 936 cc, right kidney 383 cc, left kidney 553cc. Volume: 2000 cc. IMPRESSION: Known autosomal dominant polycystic kidney disease with innumerable cystsin the liver and kidneys. Eldon Vazquez M.D., Ph.D. [facility] PRO CEDURES documented in this encounter Visit Diagnoses Diagnosis 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 documented in this encounter Care Teams Vp Relationship Specialty Start Date End Date Elsewhere, Pcp PCP - General Internal Medicine 08/01/23 documented as of this encounter
--- OUTSIDE RECORDS SUMMARY | 2023-11-03 10:28 | XMS_ITS | Encounter Summary ---
Author Name Unknown Organization [facility] Address [address] [place] [address] Care Team Providers Care Stem Roller Name Role Phone Elsewhere, Pcp Primary Care Provider Unavailabl e Reason for Visit * Reason Comments Polycystic Kidney Disease * Outpatient (Routine) - Closed Specialty Diagnoses / Procedures Referred By Contvania t Referred To Contact Nephrology and Hypertension Diagnoses Polycystic Kidney Autosomal Dominant Eldon Vazquez M.D., Ph.D. [address] [place] [phone] [facility] Referral ID Status Reason Start Date Expiration Date Visits Re quested Visits Authorized [id number] Closed 07/03/2023 07/02/2026 1 1 Encounter Details Date Type Department Care Team ([facility] st Contact Info) Description 08/01/2023 1:00 PM CDT Nurse Only Division of Nephrology and Hypertension in [place], [place] [address] [place] [phone] Eldon Vazquez M.D., Ph.D. [address] [place] [phone] Alo Pearson R.N. [address] [place] [phone] Polycystic Kidney Disease Social History Tobacco Use Types Packs/Day Years [...] 06/23/2022 How often do you attend [facility] or evangelical services? Never 06/23/2022 Do you belong to any clubs o r organizations such as catholic groups, unions, fraternal or athletic groups, or [...] and heating? Not hard at all 07/26/2023 [facility] of Occupat ional Health - Occupational Stress [...] your living situation today? I have a [facility] place to live 07/26/2023 Education Answer Date [...] Sign Reading Time Taken Comments Blood Pressure 110/70 08/01/2023 1:24 PM CDT Pulse 68 08/01/2023 1:23 PM CDT Temperature - - Respiratory Rate - - Oxygen Saturation - - Inhaled Oxygen Concentration - - Weight - - Height - - Body Mass Index - - documented in this encounter Progress Notes * Alo Pearson R.N. - 08/01/2023 1:00 PM CDT Not Provider Name: Dr. Vazquez Reason for Visit: JYNARQUE (Tolvaptan) Follow-up Visit Relevant History: ADPKD, hypertension Patient's weight is: Patient's weight is stable. Tobacco Use: reports that she has never smoked. She has never used smokeless tobacco. Alcohol Use: reports current alcohol use of about 2.0 standard drinks of alcohol per week. Dietary Assessment: does not add salt to food Home blood pressure trends are not taking. Vitals: 08/01/23 1323 08/01/23 1324 BP: 112/68 110/70 BP Location: Left arm Patient Position: Sitting Cuff Size: Regular Pulse: 68 Plan of Care: In-office blood pressures are: within goal. Instructed patient to call me if blood pressure is greater than 120/80 or experiencing significant dizziness. Medication Start Date: takes med every three months Jynarque Dose: 30/15 Aquaresis check in: -Amount of fluids per day in liters: 5 liters - How often are they going to the bathroom: every 1.5 hours - Nocturia (how many times at night): once Reviewed the following: frequency of mandatory lab follow-up and when to hold Jynarque. Patient Contact Information: Preferred contact: online message documented in this encounter Plan of Treatment Not on file documented as of this encounter Visit Diagnoses Diagnosis Polycystic Kidney Autosomal Dominant- Primary documented in this encounter Care Teams Stem Roller Relationship Specialty Start Date End Date Elsewhere, Pcp PCP - General Internal Medicine 08/01/23 documented as of this encounter
--- OUTSIDE RECORDS SUMMARY | 2023-11-03 10:34 | XMS_ITS | Encounter Summary ---
Author Name Unknown Organization [facility] Address [address] [facility] [place] [address] Care Team Providers Care Jumpbasting Machine Operator Name Role Phone Logeais, Alda BEST Unavailable Matthew Ayala OD Unavailable [phone] Logeais, Alda BEST Primary Care Provider [phone] Shy Marks PA-C Unavailable Encounter Details Date Type Department Care Team (Late st Contact Info) Description 04/30/2023 MyC Medical Advice [facility] [address] [phone] Valerie Maza, RD [address] [place] [address] Social History Tobacco Use Types Packs/Day Years [...] Description 01/02/2024 10:00 AM CDT Office Visit [facility] [address] [facility] [place] [address] Lyssa Delcid MD [address] [place] [address] [place] [address] documented as of this encounter Visit Diagnoses Not on filedocumented in this encounter Care Teams Jumpbasting Machine Operator Relationship Specialty Start Date End Date Alda Hawkins MD [address] [place] [phone] PCP - General Internal Medicine 04/30/23 Alda Hawkins MD [address] [place] [phone] Assigned PCP 03/23/22 Matthew Ayala OD [address] [place] [phone] Assigned Surgical Provider 02/10/23 Shy Marks PA-C [address] [place] [phone] Assigned Surgical Provider 05/26/23 documented as of this encounter
--- OUTSIDE RECORDS SUMMARY | 2023-11-03 10:34 | XMS_ITS | Encounter Summary ---
Author Name Unknown Organization [facility] Address [address] [place] [address] Care Team Providers Care Human Resources Talent Manager Name Role Phone Unavailable Primary Care Provider Unavailabl e Reason for Visit * Reason Onset Date Comments Pre-visit Intake 07/13/2023 Encounter Details Date Type Department Care Team (Latest Contact Info) Description 07/13/2023 3:00 PM CDT Clinical Communication Virtual Review in [place], [place] [address] [place], [place] [phone] Pre-visit Intake Social History Tobacco Use Types Packs/Day Years [...] often do you attend chur ch or jehovah's witness services? Never 06/23/2022 Do you belong to any clubs o r organizations such as episcopal groups, unions, fraternal or athletic groups, or [...] and heating? Not hard at all 06/23/2022 [facility] Occupat ional Health - Occupational [...] place to sleep or slept in a [place] [facility] facility (including now)? No 06/23/2022 Nutrition Answer Date [...]
[2023-11-03 11:01] LABS: Albumin* 4.2 g/dL (3.3-5.0); Chloride* 109 mmol/L (96-114); Potassium* 4.7 mmol/L (3.6-5.1); Sodium* 141 mmol/L (135-149)
[2023-11-03 11:04] LABS: Alanine Aminotransferase* 14 U/L (4-35); Alkaline Phosphatase* 42 U/L (40-150); Anion Gap 5 mEq/L (7-15); Aspartate Amino Transferase* 23 U/L (12-35); Bilirubin Total* 0.5 mg/dL (0.1-1.5); Blood Urea Nitrogen* 11 mg/dL (5-24); Carbon Dioxide* 27 mmol/L (20-32); Creatinine* 0.9 mg/dL (0.5-1.5); Estimated Glomerular Filt Rate 82 ml/min; Glucose* 94 mg/dL (60-115); Total Protein* 6.9 g/dL (6.0-8.3)
[2024-05-16 22:09] LABS: Albumin* 4.5 g/dL (3.3-5.0); Chloride* 104 mmol/L (96-114); Potassium* 4.2 mmol/L (3.6-5.1); Sodium* 138 mmol/L (135-149)
[2024-05-16 22:11] LABS: Estimated Glomerular Filt Rate 72 ml/min
[2024-05-16 22:12] LABS: Alkaline Phosphatase* 45 U/L (40-150); Anion Gap 8 mEq/L (7-15); Bilirubin Total* 0.7 mg/dL (0.1-1.5); Blood Urea Nitrogen* 11 mg/dL (5-24); Carbon Dioxide* 26 mmol/L (20-32); Glucose* 98 mg/dL (60-115); Total Protein* 7.3 g/dL (6.0-8.3)
[2024-05-16 22:13] LABS: Alanine Aminotransferase* 13 U/L (4-35); Aspartate Amino Transferase* 24 U/L (12-35); Calcium* 9.5 mg/dL (8.4-10.6)
== END 2024-09-29 13:24 | disposition home or self-care (01) ==
LOC: NPINS 10:32
PROVIDERS: Internal Medicine Nephrology; PCP Physician Assistant Medical; Visit Provider Physician Assistant
DX: Q61.2 Polycystic kidney, adult type (principal)
CPT/HCPCS: 36415; 80053

== ENCOUNTER 2024-02-07 14:44 | Outpatient (REF) | payer OTHER, SELFPAY ==
--- OUTSIDE RECORDS SUMMARY | 2024-02-07 14:49 | XMS_ITS | Clinical Summary ---
Author Name Unknown Organization [facility] Address [address] [place] [address] Care Team Providers Care Stonemason Supervisor Name Role Phone Elsewhere, Pcp Primary Care Provider Unavailabl e Source Comments Patient records contain information from all sites at [facility]. For routine questions regarding patient records, call [phone] during business hours, M-F 8:00 AM - 5:00 PM Central Time. Record requests for emergency care only can be directed to [phone] at any time.[facility] Allergies Active Allergy Reactions Criticality Noted Date Comments Mariela GI intolerance,Nause a And Vomiting,Other (see comments) High 04/06/2022 Pollen Extracts Other (see comments) 08/16/2006 Medications Medication Sig Dispensed Refills Start Date End Date Status escitalopram (LEXAPRO) 5 mg tablet Take 20 mg by mouth daily. 20 mg tablets Active levonorgestreL (Mirena) 20 mcg/24 hours (6 yrs) 52 mg IUD 1 Intra Uterine Device by intrauterine route continuously. 12/18/2018 Active tolvaptan, polycys kidney dis, (Jynarque) 30 mg (AM)/ 15 mg (PM) tablets, sequential Take 30 mg by mouth every morning AND 15 mg daily. Take 15 mg 8 hours after morning dosage. 56 tablet 11 12/31/2023 Active candesartan (ATACAND) 8 mg tabletIndications :Other Secondary Hypertension TAKE 1 TABLET(8 MG) BY MOUTH DAILY 90 tablet 3 01/30/2024 Active candesartan (ATACAND) 8 mg tabletIndications :Other Secondary Hypertension TAKE 1 TABLET(8 MG) BY MOUTH DAILY 90 tablet 1 07/10/2023 01/30/20 24 Discontinued Encounters Date Type Department Care Team Description 01/30/2024 Refill Division of Nephrology and Hypertension in [place], [place] [address] [place] [address] Eldon Vazquez M.D., Ph.D. Med Refill 12/31/2023 Clinical Communication Division of Nephrology and Hypertension in [place], [place] [address] [place] [address] Alo Pearson R.N. 11/26/2023 Orders Only Division of Gastroenterology in [place], [place] [address] [place] [address] Chemo Banks M.D. Genetic Susceptibility To Disease from Last 3 Months Family History Medical [...] often do you attend chur ch or alevism services? Never 06/23/2022 Do you belong to any clubs o r organizations such as faith groups, unions, fraternal or athletic groups, or [...] and heating? Not hard at all 07/26/2023 [facility] of Occupat ional Health - Occupational Stress [...] your living situation today? I have a [facility] place to live 07/26/2023 Education Answer [...] Last Done Comments HIV Screening 1980 Hepatitis C Screening 1980 Hepatitis B Vaccines (1 of 3 - 19+ 3-dose series) 12/21/1999 Cervical Cancer Screening 08/16/2009 08/16/2006 COVID-19 Vaccine ( season) 2023 07/07/2022, 09/09/2021, 02/03/2021, Additional history exists Depression Screening (Annual PHQ-2) 10/08/2023 Mammogram 04/30/2024 04/30/2023, 08/17/2020 Potassium Level 08/01/2024 08/01/2023, 06/09, 04/30/2023, Additional history exists Creatinine Level (Kidney Function Test) 11/03/2024 11/03/2023, 08/01/2023, 07/02/2023, Additional history exists Sodium Level 11/03/2024 11/03/2023, 07/09, 07/02/2023, Additional history exists Lipid (Cholesterol) Screening 08/01/2028 08/01/2023, 04/30/2023, 04/12/2022 DTaP,Tdap,and Td Vaccines (3 - Td or Tdap) 04/12/2032 04/12/2022, 07/21/2010 Influenza Vaccine Completed 06/25/2023, , 07/24/2011, Additional history exists HPV Vaccines Aged Out No longer eligi ble based on patient's age to complete this topic Pneumococcal vaccine (0-64 years) Aged Out No longer eligible based on patient's age to complete this topic Procedures Procedure Name Priority Date/Time Associated Diagnosis Comments EXTP COMPLETE METABOLIC PANEL, BLOOD Routine 11/03/2023 LIPID PANEL, S Routine 08/01/2023 9:46 AM CDT 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 COMPREHENSIVE METABOLIC PANEL, S/P Routine 08/01/2023 9:46 AM CDT 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 BI BREAST SCREENING BILATERAL WITH TOMOSYNTHESIS Routine 04/30/2023 11:31 AM CDT PATHOLOGY CHEMICAL ANALYTICAL SAMPLER CYTOLOGY Routine 08/16/2006 2:28 PM [employer] from Last 3 Months or Most Recently Relevant to Health Maintenance Results * EXT Complete Metabolic Panel, Blood (11/03/2023) EXT AST 23 12 - 35 [facility]) EXT Alkaline Phosphatase 42 40 - 150 [facility]) EXT ALT 14 4 - 35 [facility]) EXT Bilirubin, Total 0.5 0.1 - 1.5 mg/dL [facility]) EXT Creatinine 0.9 0.5 - 1.5 mg/dL [facility]) EXT Sodium 141 135 - 149 mmol/L [facility]) Blood (Blood, Venous) 11/03/2023 Historical Provider LAB BLOOD NON ADD-ON [facility]) [address] [place] [address], [facility] [phone] * Lipid Panel (08/01/2023 9:46 AM CDT) Triglycerides 90 mg/dL 08/01/2023 10:49 AM CDT [...] Vazquez M.D., Ph.D. LAB BLOOD A DD-ON [facility] - [address] [place] [address] * (ABNORMAL) Comprehensive Metabolic Panel (08/01/2023 9:46 AM CDT) Pathologist [facility] Potassium, S 4.5 3.6 - 5.2 mmol/L [...] LAB BLOOD A DD-ON Performing Organization Address City/State/[facility] Co de Phone Number [facility] [place] [address] [place] [address], [facility] [address] [place] [address] * Pathology CHEMICAL ANALYTICAL SAMPLER Cytology (08/16/2006 2:28 PM [employer]) 08/16/2006 2:28 PM [employer] 08/16/2006 2:28 PM [employer] Narrative [facility] [place] - 08/16/2006 2:28 PM [employer]OR [employer]INE ??08/16/2006 Cytology Gynecological ?([id number]) ? Requested By: ??Catrina Schmitz M.D. ??[phone] ?DIAGNOSIS: ?? A. ??ThinPrep Pap Test Screen (Cervical/Endocervical HPV Reflex): ?Satisfactory for evaluation. ?Negative for intraepithelial lesion or malignancy. ? 08/17/2006 ?HE Jordan (ASCP) Silvina Sanchez M.D. ?[phone] ?? SPECIMEN DESCRIPTION: A. ??ThinPrep Pap Test Screen (Cervical/Endocervical HPV Reflex): ?? Received cloudy specimen in ThinPrep vial. ? Procedure Note 01/01/2018 08/16/2006 Cytology Gynecological ([id number]) Requested By: Catrina Schmitz M.D. [phone] DIAGNOSIS: A. ThinPrep Pap Test Screen (Cervical/Endocervical HPV Reflex): Satisfactory for evaluation. Negative for intraepithelial lesion or malignancy. 08/17/2006 HE Jordan (ASCP) Silvina Sanchez M.D. [phone] SPECIMEN DESCRIPTION: A. ThinPrep Pap Test Screen (Cervical/Endocervical HPV Reflex): Received cloudy specimen in ThinPrep vial. Catrina Schmitz M.D. LAB PAP COPATH ORD ERABLES [facility] [place] [address] from Last 3 Months or Most Recently Relevant to Health Maintenance Care Teams Stonemason Supervisor Relationship Specialty Start Date End Date Elsewhere, Pcp PCP - General Internal Medicine 08/01/23
--- OUTSIDE RECORDS SUMMARY | 2024-02-07 14:50 | XMS_ITS | Encounter Summary ---
Author Name Unknown Organization [facility] Address [address] [facility] [place] [address] Care Team Providers Care Analytical Strategist Name Role Phone Logeais, Alda BEST Unavailable Logeais, Alda BEST Primary Care Provider [phone] Shy Marks PA-C Unavailable [phone] Lyssa Delcid MD Unavailable [phone] Encounter Details Date Type Department Care Team (Late st Contact Info) Description 08/07/2023 [facility] End[facility] [address] [place] [address] [facility] Social History Tobacco Use Types Packs/Day Years [...] on filedocumented in this encounter Care Teams Analytical Strategist Relationship Specialty Start Date End Date Alda Hawkins MD [address] [facility] [address] [place] [address] PCP - General Internal Medicine 04/30/23 Alda Hawkins MD [address] [address] Assigned PCP 03/23/22 Shy Marks PA-C [address] [place] [phone] Assigned Surgical Provider 05/26/23 Lyssa Delcid MD [address] [place] [place] [address] Assigned Endocrinology Provider 01/29/24 documented as of this encounter
--- OUTSIDE RECORDS SUMMARY | 2024-02-07 14:50 | XMS_ITS | Encounter Summary ---
Author Name Unknown Organization [place] Address [address] [facility] [place] [address] Care Team Providers Care Hydrography Teacher Name Role Phone Logeais, Alda BEST Unavailable Logeais, Alda BEST Primary Care Provider [phone] Shy Marks PA-C Unavailable [phone] Encounter Details Date Type Department Care Team (Latest Contact Info) Description 01/02/2024 Travel Social History Tobacco Use Types Packs/Day [...] on filedocumented in this encounter Care Teams Hydrography Teacher Relationship Specialty Start Date End Date Alda Hawkins MD [address] [address] PCP - General Internal Medicine 04/30/23 Alda Hawkins MD [address] [place] [address] Assigned PCP 03/23/22 Shy Marks PA-C [address] [place] [address] Assigned Surgical Provider 05/26/23 documented as of this encounter
--- OUTSIDE RECORDS SUMMARY | 2024-02-07 14:50 | XMS_ITS | Encounter Summary ---
Author Name Unknown Organization [place] Address [address] [place] [address] Care Team Providers Care Sumatra Opener Name Role Phone LogeaisAlda MD Unavailable Matthew Ayala OD Unavailable [phone] Serafin Mason MD Unavailable [phone] Matthew Ayala OD Unavailable [phone] LogeaisAlda MD Primary Care Provider [phone] Shy Marks PA-C Unavailable [phone] Lyssa Delcid MD Unavailable [phone] Encounter Details Date Type Department Care Team (Late st Contact Info) Description 04/12/2022 MyC Medical Advice [facility] [address] [place] [address] Valerie Maza, RD [address] [place] [address] Social History Tobacco Use Types [...] on filedocumented in this encounter Care Teams Sumatra Opener Relationship Specialty Start Date End Date Alda Hawkins MD [address] [place] [phone] PCP - General Internal Medicine 04/30/23 Alda Hawkins MD [address] [place] [address] 136635 Assigned PCP 03/23/22 Matthew Ayala OD [address] [place] [phone] Assigned Surgical Provider 04/15/22 Serafin Mason MD [address] [address] Assigned Surgical Provider 02/03/2302/09/23 Matthew Ayala OD 9 [facility] 4th [place] [phone] Assigned Surgical Provider 02/10/23 Shy Marks PA-C [address] [place] [address] Assigned Surgical Provider 05/26/23 Lyssa Delcid MD [address] [place] [address] Assigned Endocrinology Provider 01/29/24 documented as of this encounter
--- OUTSIDE RECORDS SUMMARY | 2024-02-07 14:50 | XMS_ITS ---
Author Name Unknown Organization [facility] Address [address] [place] [address] Care Team Providers Care Federal Judge Name Role Phone Unavailable Unavailable Unavailable Surgery Details Not on file Complications Check Surgery Details section. Procedure Estimated Blood Loss Check Surgery Details section. Procedure Findings Check Surgery Details section. Procedure Specimens Taken Check Surgery Details section.
--- OUTSIDE RECORDS SUMMARY | 2024-02-07 14:50 | XMS_ITS | Encounter Summary ---
Author Name Unknown Organization [place] Address [address] [place] [address] Care Team Providers Care Call Center Support Consultant Name Role Phone Logeais, Alda BEST Unavailable Logeais, Alda BEST Primary Care Provider [phone] Shy Marks PA-C Unavailable Lyssa Delcid MD Unavailable [phone] Reason for Visit * Reason Onset Date Comments Call Back 08/01/2023 Referral 08/01/2023 Encounter Details Date Type Department Care Team (Late st Contact Info) Description 08/01/2023 Telephone [facility] [address] [place] [address] None Call Back; Referral Social [...] for Call: Appointment Intake Referring Provider Name: ANALIA FREDERICK Diagnosis and/or Symptoms: 42-y.o. woman requests evaluation [...] on filedocumented in this encounter Care Teams Call Center Support Consultant Relationship Specialty Start Date End Date Alda Hawkins MD [address] [place] [address] PCP - General Internal Medicine 04/30/23 Alda Hawkins MD [address] [place] [address] Assigned PCP 03/23/22 Shy Marks PA-C [address] [place] [address] Assigned Surgical Provider 05/26/23 Lyssa Delcid MD [address] [facility] [address] [place] [address] Assigned Endocrinology Provider 01/29/24 documented as of this encounter
--- OUTSIDE RECORDS SUMMARY | 2024-02-07 14:50 | XMS_ITS | Encounter Summary ---
Author Name Unknown Organization [place] Address [address] [facility] [place] [address] Care Team Providers Care Ice Cream Man Name Role Phone Logeais, Alda BEST Unavailable Logeais, Alda BEST Primary Care Provider [phone] Shy Marks PA-C Unavailable [phone] Lyssa Delcid MD Unavailable [phone] Reason for Referral * Consultation (Routine: Next available opening) - Pending Review Specialty Diagnoses / Procedures Referred By Brayan buenrostro Referred To Contact Endocrinology, Diabetes, and Metabolism Diagnoses Family history of thyroid disease in mother Family history thyroid disease in brother Family history of thyroid disease in grandmother Fatigue, unspecified type Darien Duval MD [address] [place] [address] Referral ID Status Reason Start Date Expiration Date V isits Requested Visits Authorized [id number] Pending Review 07/31/2023 07/30/2024 1 1 Question Answer Reason for Referral: Thyroid Scheduling Instructions: dINK will call you to coordinate your care as prescribed by the provider. If you don? t hear from a financial representative within 2 business days, please call [phone]. Additional Information: 42-y.o. woman requests evaluation of [...] plan with any benefit or coverage questions. Sonian [place] will call you to coordinate your care as prescribed by the provider. If you don? t hear from a financial representative within 2 business days, please call [phone]. Encounter Details Date Type Department Care Team (Late st Contact Info) Description 07/31/2023 MyC Medical Advice [facility] [address] [facility] [address] 5th [place] [address] Darien Duval MD [address] [facility] [address] [place] [address] Family history of thyroid disease in mother [...] of this encounter Plan of Treatment Scheduled Referrals Name Type Priority Associated Diagnoses Orde r Schedule Adult Endocrinology Vascular Surgeon Referral Referral Routine: Next available opening Family [...] type documented in this encounter Care Teams Ice Cream Man Relationship Specialty Start Date End Date Alda Hawkins MD [address] [address] PCP - General Internal Medicine 04/30/23 Alda Hawkins MD [address] [address] Assigned PCP 03/23/22 Shy Marks PA-C [address] [place] [address] Assigned Surgical Provider 05/26/23 Lyssa Delcid MD [address] [place] [address] [place] [address] Assigned Endocrinology Provider 01/29/24 documented as of this encounter
--- OUTSIDE RECORDS SUMMARY | 2024-02-07 14:50 | XMS_ITS | Encounter Summary ---
Author Name Unknown Organization [facility] Address [address] [place] [address] Care Team Providers Care Aluminum Boat Assembly Supervisor Name Role Phone Elsewhere, Pcp Primary Care Provider Unavailabl e Reason for Visit * Reason Comments Med Refill Encounter Details Date Type Department Care Team (Late st Contact Info) Description 01/30/2024 Refill Division of Nephrology and Hypertension in [place], [place] [address] [place] [phone] Eldon Vazquez M.D., Ph.D. [address] [place] [address] Med Refill Social History Tobacco Use Types [...] often do you attend chur ch or congregational services? Never 06/23/2022 Do you belong to any clubs o r organizations such as holiness groups, unions, fraternal or athletic groups, or [...] and heating? Not hard at all 07/26/2023 [facility] - Occupational [...] your living situation today? I have a [facility] place to live 07/26/2023 Education Answer [...] Hypertension documented in this encounter Care Teams Aluminum Boat Assembly Supervisor Relationship Specialty Start Date End Date Elsewhere, Pcp PCP - General Internal Medicine 08/01/23 documented as of this encounter
--- OUTSIDE RECORDS SUMMARY | 2024-02-07 14:50 | XMS_ITS | Encounter Summary ---
Author Name Unknown Organization [place] Address [address] [place] [address] Care Team Providers Care Director Payment Name Role Phone LogeaisAlda MD Unavailable Matthew Ayala OD Unavailable [phone] LogeaisAlda MD Primary Care Provider [phone] Shy Marks PA-C Unavailable Lyssa Delcid MD Unavailable [phone] Encounter Details Date Type Department Care Team (Late st Contact Info) Description 04/30/[address] [facility] Gastroenterology Clinic [address] [address] Valerie Maza, RD [address] [place], [place] [phone] Social History Tobacco Use Types Packs/Day Years [...] filedocumented in this encounter Care Teams Director Payment Relationship Specialty Start Date End Date Alda Hawkins MD [address] [place] [address] PCP - General Internal Medicine 04/30/23 Alda Hawkins MD [address] [place] [address] Assigned PCP 03/23/22 Matthew Ayala OD [address] [place] [phone] Assigned Surgical Provider 02/10/23 Shy Marks PA-C [address] [place] [address] Assigned Surgical Provider 05/26/23 Lyssa Delcid MD [address] [place] [address] [place] [address] Assigned Endocrinology Provider 01/29/24 documented as of this encounter
--- OUTSIDE RECORDS SUMMARY | 2024-02-07 14:50 | XMS_ITS | Encounter Summary ---
Author Name Unknown Organization [facility] Address [address] [place] [address] Care Team Providers Care Web Services Manager Name Role Phone Elsewhere, Pcp Primary Care Provider Unavailabl e Encounter Details Date Type Department Care Team (Late st Contact Info) Description 12/31/2023 Clinical Communication Division of Nephrology and Hypertension in [place], [place] [address] [place] [address] Alo Pearson R.N. [address] [place] [address] Social History Tobacco Use Types Packs/Day Years [...] often do you attend chur ch or church services? Never 06/23/2022 Do you belong to any clubs o r organizations such as mu-ism groups, unions, fraternal or athletic groups, or [...] and heating? Not hard at all 07/26/2023 [facility] [place] [facility] Occupat ional Health - Occupational Stress [...] your living situation today? I have a [facility] place to live 07/26/2023 Education [...] encounter Miscellaneous Notes * Telephone Encounter - Alo Pearson R.N. - 12/31/2023 9:15 AM CDT SUBJECTIVE CHIEF COMPLAINT / REASON FOR CALL Jynarque Information Discussed I received a call from the patient's [employer] insurance. They were wondering if we can ordera generic product for Jynarque. We discussed that we typically write the order for tolvaptan however Jynarque will be on the prescription. 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 PLAN Disposition/Recommendation: self-care is appropriate at this time, patient encouraged to call back with questions Information/Education: patient/caller able to teach back Caller agreeable to plan of care: yes The following references were used: nursing clinical judgement documented in this encounter Plan of Treatment Not on file documented as of this encounter Visit Diagnoses Not on filedocumented in this encounter Care Teams Web Services Manager Relationship Specialty Start Date End Date Elsewhere, Pcp PCP - General Internal Medicine 08/01/23 documented as of this encounter
--- OUTSIDE RECORDS SUMMARY | 2024-02-07 14:50 | XMS_ITS | Referral Summary ---
Author Name Unknown Organization [place] Address [address] [facility] [place] [address] Care Team Providers Care Switch Engineer Name Role Phone Logeais, Alda BEST Unavailable Logeais, Alda BEST Primary Care Provider [phone] Shy Marks PA-C Unavailable Lyssa Delcid MD Unavailable [phone] Encounters Date Type Department Care Team Description 01/02/2024 Travel 01/02/2024 10:00 AM CDT Office Visit [facility] [address] [facility] [address] [place] [address] Lyssa Delcid MD Family history of thyroid disease (Primary Dx) from Last 3 Months Allergies Active Allergy Reactions Criticality Noted Date Comments Mariela Nausea and Vomiting High 04/06/2022 Gramineae Pollens Other (See Comments) 08/16/20 06 Medications Medication Sig Dispensed Refills Start Date End Date Status Tolvaptan (JYNARQUE) 30 & 15 MG TBPK Jynarque 30 mg (AM)/15 mg (PM) tablets 1 tablet twice a day by oral route. 05/08/2021 Active levonorgestrel (MIRENA) 20 MCG/DAY IUD Mirena 20 mcg/24 hours (6 yrs) 52 mg intrauterine device Take by intrauterine route. 12/18/2018 Active candesartan (ATACAND) 8 MG tablet Take 8 mg by mouth 06/28/2022 Active escitalopram (LEXAPRO) 20 MG tablet Take 1 tablet by mouth daily at 2 pm 12/09/2023 Active Active Problems Problem Noted Date Diagnosed Date Family history of thyroid disease 01/02/2024 Immunizations Name Administration Dates Next Due COVID-19 MONOVALENT 12+ (Pfizer) 021,02/05/2021,02/03/2021, 021,01/06/2021 Influenza (IIV3) PF 07/24/2011,07/21/2010 Influenza Vaccine (Flucelvax Quadrivalent) 06/25/2023 Influenza Vaccine >6 months,quad, PF 08/05/2020 TDAP [...] Sign Reading Time Taken Comments Blood Pressure 122/72 01/02/2024 9:59 AM CDT Pulse 71 01/02/2024 9:59 AM CDT Temperature 37.1 ??C (98.7 ??F) 01/02/2024 9:59 AM CD T Respiratory Rate 16 01/02/2024 9:59 AM CDT Oxygen Saturation 100% 01/02/2024 9:59 AM CDT Inhaled Oxygen Concentration - - Weight 76.3 kg (168 lb 3.2 oz) 01/02/2024 9:59 A M CDT Height 172.7 cm (5' 7.99) 01/02/2024 9:59 AM CD T Body Mass Index 25.58 01/02/2024 9:59 AM CDT Plan of Treatment Not on file Procedures Procedure Name Priority Date/Time Associated Diagnosis Comments THYROID PEROXIDASE ANTIBODY Routine 01/02/2024 10:31 AM CDT Family history of thyroid disease TSH Routine 01/02/2024 10:31 AM CDT Family history of thyroid disease T4 FREE Routine 01/02/2024 10:31 AM CDT Family history of thyroid disease MA SCREENING BILATERAL W/ JADIEL Routine 04/30/2023 11:31 AM CDT Encounter for preventative adult health care examination Visit for screening mammogram GLUCOSE Routine 04/30/2023 7:50 AM CDT Encounter for preventative adult health care examination HIV ANTIGEN ANTIBODY COMBO Routine 04/30/2023 7:50 AM CDT Encounter for preventative adult health care examination HEPATITIS C ANTIBODY Add-On 04/30/2023 7:50 AM CDT Encounter for preventative adult health care examination LIPID REFLEX TO DIRECT LDL PANEL Routine 04/30/2023 7:50 AM CDT Encounter for preventative adult health care examination ABSTRACT PAP (HIM EXTERNAL RESULT) Routine 01/04/2018 9:19 AM CDT ABSTRACT HPV (HIM EXTERNAL RESULT) Routine 01/04/2018 9:19 AM CDT REMOVE IMPACTED EAR WAX Routine 12/19/2000 1:35 PM TIMBER ROBBER Impacted Cerumen from Last 3 Months or Most Recently Relevant to Health Maintenance Results * TSH (01/02/2024 10:31 AM CDT) TSH 0.86 0.30 - 4.20 uIU/mL 01/03/2024 3:24 AM CDT [facility] Blood BLOOD SPECIMEN / Unknown Venipuncture / Unknown 01/02/2024 10:31 AM CDT 01/02/2024 10:32 AM CDT Lyssa Delcid MD LAB - BLOOD ORDER [place] [facility] [place] [facility] [address] [facility], [address] * Thyroid peroxidase antibody (01/02/2024 10:31 AM CDT) Thyroid Peroxidase Antibody 20 <35 IU/mL 01/03/2024 9:53 AM CDT SPECIALTY CORE/PROT/ENDO Blood BLOOD SPECIMEN / Unknown Venipuncture / Unknown 01/02/2024 10:31 AM CDT 01/02/2024 10:32 AM CDT Lyssa Delcid MD LAB - BLOOD ORDER [place] SPECIALTY CORE/PROT/ENDO Specialty Core/Prot/Endo [address] [facility], [address] * T4 free (01/02/2024 10:31 AM CDT) Free T4 1.35 0.90 - 1.70 ng/dL 01/03/2024 3:24 AM CDT [facility] Blood BLOOD SPECIMEN / Unknown Venipuncture / Unknown 01/02/2024 10:31 AM CDT 01/02/2024 10:32 AM CDT Lyssa Delcid MD LAB - BLOOD ORDER [place] [facility] [address] [facility], [address] [place] [address], [facility] * [place] Screening Bilateral w/ Jadiel (04/30/2023 [...] Darien Duval MD IMG MAMMOGRAPH Y ORDERABLES * HIV Antigen Antibody Combo [[id number]] (04/30/2023 7:50 AM CDT) HIV Antigen Antibody Combo Nonreactive Nonreactive 04/30/2023 12:41 PM CDT [facility] CORE/PROT/EN DO Comment:HIV-1 p24 Ag & HIV-1 /HIV-2 Ab Not Detected Blood STRUCTURE OF RIGHT UPPER LIMB / Unknown Venipuncture / Unknown 04/30/2023 7:50 AM CDT 04/30/2023 8:00 AM CDT Darien Duval MD LAB - BLOOD OR DERABLES [facility] C[facility]/PROT/ENDO [facility] Core/Prot/Endo [address] [facility], Room [address] [place] [address] * Lipid panel reflex to direct LDL Fasting (04/30/2023 7:50 AM CDT) Cholesterol 168 <200 mg/dL 04/30/2023 8:24 AM CDT [facility] Triglycerides 62 <150 mg/dL 04/30/2023 8:24 AM CDT [facility] Direct Measure HDL 64 >=50 mg/dL 2022 8:24 AM CDT [facility] LDL Cholesterol Calculated 92 <=100 mg/dL 04/30/2023 8:24 AM CDT [facility] Non HDL Cholesterol 104 <130 mg/dL 04/30/2023 8:24 AM CDT [facility] Blood STRUCTURE OF RIGHT UPPER LIMB / Unknown Venipuncture / Unknown 04/30/2023 7:50 AM CDT 04/30/2023 8:00 AM CDT Narrative [facility] - 04/30/2023 8:24 [...] Duval MD LAB - BLOOD OR DERABLES [facility] - [address] 1[address] Floor [place] [address] * Hepatitis C antibody (04/30/2023 7:50 AM CDT) Pathologist [facility] Hepatitis C Antibody Nonreactive Nonreactive 04/30/2023 5:10 PM CDT SPECIALTY CORE/PROT/EN DO Blood STRUCTURE OF RIGHT UPPER LIMB / Unknown Venipuncture / Unknown 04/30/2023 7:50 AM CDT 04/30/2023 8:00 AM CDT Narrative SPECIALTY CORE/PROT/ENDO - 04/30/2023 5:10 PM CDT Assay performance characteristics have not been established for newborns, infants, and children. Darien Duval MD LAB - BLOOD OR DERABLES SPECIALTY CORE/PROT/ENDO Specialty Core/Prot/Endo [address] [place] [address] [address], Room [address] [phone] * Glucose (04/30/2023 7:50 AM CDT) Pathologist [facility] Glucose 91 70 - 99 mg/dL 04/30/2023 8:24 AM CDT [facility] Patient Fasting > 8hrs? Unknown 04/30/2023 8:24 AM CDT [facility] Blood STRUCTURE OF RIGHT UPPER LIMB / Unknown Venipuncture / Unknown 04/30/2023 7:50 AM CDT 04/30/2023 8:00 AM CDT Darien Duval MD LAB - BLOOD OR DERABLES [facility] - [address] 1[address] Floor [place] [address] * Abstract HPV (HIM External Result) (01/04/2018 9:19 AM CDT) Pathologist [facility] HPV Abstract See Scanned Document [facility] 01/04/2018 9:19 AM CDT [facility] - 01/04/2018 9:19 AM CDT PAP SMEAR/HPV [facility] - Lab Results Provider Outside LAB - HIM EXTERNAL R ESULT [facility] [address] [phone] * Abstract PAP (HIM External Result) (01/04/2018 9:19 AM CDT) PAP-ABSTRACT See Scanned Document [facility] 01/04/2018 9:19 AM CDT [facility] - 01/04/2018 9:19 AM CDT PAP SMEAR/HPV [facility] - Lab Results Provider Outside LAB - HIM EXTERNAL R ESULT Performing Organization Address City/[facility] Co de Phone Number [facility] [address] [phone] from Last 3 Months or Most Recently Relevant to Health Maintenance Care Teams Switch Engineer Relationship Specialty Start Date End Date Alda Hawkins MD [address] [place] [address] PCP - General Internal Medicine 04/30/23 Alda Hawkins MD [address] [place] [address] Assigned PCP 03/23/22 Shy Marks PA-C [address] [place] [address] Assigned Surgical Provider 05/26/23 Lyssa Delcid MD [address] [place] [address] Assigned Endocrinology Provider 01/29/24
--- OUTSIDE RECORDS SUMMARY | 2024-02-07 14:50 | XMS_ITS | Referral Summary ---
Author Name Unknown Organization [facility] Address [address] [place] [address] Care Team Providers Care Vp Global Marketing Solutions Name Role Phone Elsewhere, Pcp Primary Care Provider Unavailabl e Source Comments Patient records contain information from all sites at [facility]. For routine questions regarding patient records, call [phone] during business hours, M-F 8:00 AM - 5:00 PM Central Time. Record requests for emergency care only can be directed to [phone] at any time.[facility] Encounters Date Type Department Care Team Description 01/30/2024 Refill Division of Nephrology and Hypertension in [place], [place] [address] [place] [address] Eldon Vazquez M.D., Ph.D. Med Refill 12/31/2023 Clinical Communication Division of Nephrology and Hypertension in [place], [place] [address] [place] [address] Alo Pearson, RAlvinoN. 11/26/2023 Orders Only Division of Gastroenterology in [place], [place] [address] [place] [address] Chemo Banks M.D. Genetic Susceptibility To Disease from Last 3 Months Allergies Active Allergy [...] 90 tablet 1 07/10/2023 01/30/20 24 Discontinued Social History Tobacco Use Types Packs/Day Years [...] How often do you attend chur or bahai services? Never 06/23/2022 Do you belong to any clubs o r organizations such as buddhist groups, unions, fraternal or athletic groups, or [...] and heating? Not hard at all 07/26/2023 [facility] - [...] your living situation today? I have a [facility] place to live 07/26/2023 Education Answer [...] TOMOSYNTHESIS Routine 04/30/2023 11:31 AM CDT PATHOLOGY ASSOCIATE MERCHANT CYTOLOGY Routine 08/16/2006 2:28 PM PATIENT SERVICE COORDINATOR from Last 3 Months or Most Recently Relevant to Health Maintenance Results * EXT Complete Metabolic Panel, Blood (11/03/2023) Pathologist [facility] EXT AST 23 12 - [address] [facility]) EXT Alkaline Phosphatase 42 40 - 150 [facility]) EXT ALT 14 4 - [address] [facility]) EXT Bilirubin, Total 0.5 0.1 - 1.5 mg/dL [facility]) EXT Creatinine 0.9 0.5 - 1.5 mg/dL [facility]) EXT Sodium 141 135 - 149 mmol/L [facility]) Blood (Blood, Venous) 11/03/2023 Historical Provider LAB BLOOD NON ADD-ON [facility]) [address] [place] [address], [facility] [phone] * Lipid Panel (08/01/2023 9:46 AM CDT) Pathologist [facility] Triglycerides 90 mg/dL 08/01/2023 10:49 AM CDT [...] M.D., Ph.D. LAB BLOOD A DD-ON [facility] [place] [address], [facility] [place] [address] * (ABNORMAL) Comprehensive Metabolic Panel (08/01/2023 9:46 [...] LAB BLOOD A DD-ON Performing Organization Address City/State/[facility] Co de Phone Number [facility] [address] [place] [address], [facility] [address] [place] [address] * Pathology ASSOCIATE MERCHANT Cytology (08/16/2006 2:28 PM PATIENT SERVICE COORDINATOR) 08/16/2006 2:28 PM PATIENT SERVICE COORDINATOR 08/16/2006 2:28 PM PATIENT SERVICE COORDINATOR Narrative [facility] - 08/16/2006 2:28 PM PATIENT SERVICE COORDINATOR ??08/16/2006 Cytology Gynecological ?([id number]) ? Requested By: ??Catrina Schmitz M.D. ??[phone] ?DIAGNOSIS: ?? A. ??ThinPrep Pap Test Screen (Cervical/Endocervical HPV Reflex): ?Satisfactory for evaluation. ?Negative for intraepithelial lesion or malignancy. ? 08/17/2006 ?HE Jordan (ASCP) Silvina Sanchez M.D. ?[phone] ?? SPECIMEN DESCRIPTION: A. ??ThinPrep Pap Test Screen (Cervical/Endocervical HPV Reflex): ?? Received cloudy specimen in ThinPrep vial. ? Procedure Note 01/01/2018 08/16/2006 Cytology Gynecological ([id number]) Requested By: Catrina Schmitz M.D. [phone] DIAGNOSIS: A. ThinPrep Pap Test Screen (Cervical/Endocervical HPV Reflex): Satisfactory for evaluation. Negative for intraepithelial lesion or malignancy. 08/17/2006 HE Jordan (ASCP) Silvina Sanchez M.D. [phone] SPECIMEN DESCRIPTION: A. ThinPrep Pap Test Screen (Cervical/Endocervical HPV Reflex): Received cloudy specimen in ThinPrep vial. Catrina Schmitz M.D. LAB PAP COPATH ORD ERABLES [facility] [address] from Last 3 Months or Most Recently Relevant to Health Maintenance Care Teams Vp Global Marketing Solutions Relationship Specialty Start Date End Date Elsewhere, Pcp PCP - General Internal Medicine 08/01/23
--- OUTSIDE RECORDS SUMMARY | 2024-02-07 14:50 | XMS_ITS | Clinical Summary ---
Author Name Unknown Organization [facility] Address [address] [place] [address] Care Team Providers Care Buyer Broker Name Role Phone Rosemarie Portillo APRN, CNP Primary Care Provid er Source Comments You are receiving this document as you are listed as the primary care provider,follow-up provider, or the patient has been referred to you for consultation.This is in compliance with the Medicare andThe [facility] EHR Incentive Program,which states Providers who transition [...] mg by mouth daily (every 24 hours). 12/10/2015 Active pseudoephedrine (AKA SUDAFED) 30 MG tablet Take 30 mg by mouth every 6 hours as needed for Congestion. 12/10/2015 Active Active Problems No known active [...] 36.1 ??C (97 ??F) 11/27/2013 9:56 AM SUPERVISOR POLE YARD Respiratory Rate 16 10/21/2002 4:50 PM SUPERVISOR POLE YARD Oxygen Saturation - - Inhaled Oxygen Concentration - - Weight 69.4 kg (153 lb) 08/09/2016 8:25 AM CDT Height 171.5 cm (5' 7.5) 11/27/2013 9:56 AM SUPERVISOR POLE YARD Body Mass Index 23.61 11/27/2013 9:56 AM SUPERVISOR POLE YARD Plan of Treatment Health Maintenance Due Date Last Done Comments Cervical Cancer Screening Due 1980 Hep C Screening (Preventive Services) 1980 HIV Screening (Preventive Services) 1996 Adult Preventive Visit 1998 HepB (1) 12/21/1999 DTaP/Tdap/Td (2 - Tdap) 07/21/2020 07/21/2010 COVID-19 Vaccine (2 - 2022-2 4 season) 2023 01/13/2021 Influenza (#1) 2023 07/24/2011, 07/21/2010 Zoster/Shingles (1 [...] age to complete this topic Care Teams Buyer Broker Relationship Specialty Start Date End Date Rosemarie Portillo, PINION POLISHER, OUTSIDE PRODUCTION INSPECTOR [id number] [facility] - General 06/08/16
--- OUTSIDE RECORDS SUMMARY | 2024-02-07 14:50 | XMS_ITS | Clinical Summary ---
Author Name Unknown Organization [facility] Address [address] [facility] [place] [address] Care Team Providers Care Marketing Underwriter Name Role Phone Logeais, Alda BEST Unavailable Logeais, Alda BEST Primary Care Provider [phone] Shy Marks PA-C Unavailable Lyssa Delcid MD Unavailable [phone] Allergies Active Allergy Reactions Criticality Noted Date [...] Date Family history of thyroid disease 01/02/2024 Encounters Date Type Department Care Team Description 01/02/2024 10:00 AM CDT Office Visit M [facility] [address] [place] [address] Lyssa Delcid MD Family history of thyroid disease (Primary Dx) 01/02/2024 Travel from Last 3 Months Immunizations Name Administration [...] 01/02/2024 9:59 AM CDT Plan of Treatment Health Maintenance Due Date Last Done Comments ADVANCE CARE PLANNING 1980 ANNUAL REVIEW OF HM ORDERS 1980 HEPATITIS B IMMUNIZATION (1 of 3 - 19+ 3-dose series) 12/21/1999 HPV TEST 01/04/2023 01/04/2018, 01/04/2018 PAP 01/04/2023 01/04/2018, 01/04/2018 COVID-19 Vaccine ( season) 2023 07/07/2022, 09/09/2021, 02/05/2021, Additional history exists PHQ-2 (once per calendar year) 2023 04/30/2023, 04/30/2023, 04/12/2022, Additional history exists YEARLY PREVENTIVE VISIT 06/25/2024 06/25/20 23, 04/30/2023, 04/12/2022, Additional history exists MAMMO SCREENING 04/30/2025 04/30/2023, 0 04/2021, 03/14/2021, Additional history exists GLUCOSE 04/30/2026 04/30/2023, 07/0 03/2022, 08/05/2020 LIPID 04/30/2028 04/30/2023, 07/0 03/2022, 08/05/2020 DTAP/TDAP/TD IMMUNIZATION (3 - Td or Tdap) [...] IMPACTED EAR WAX Routine 12/19/2000 1:35 PM [employer] Impacted Cerumen from Last 3 Months or Most Recently Relevant to Health Maintenance Results * TSH (01/02/2024 10:31 AM CDT) TSH 0.86 0.30 - 4.20 uIU/mL 01/03/2024 3:24 AM CDT [facility] Blood BLOOD SPECIMEN / Unknown Venipuncture / Unknown 01/02/2024 10:31 AM CDT 01/02/2024 10:32 AM CDT Lyssa Delcid MD LAB - BLOOD ORDER TRACEE [facility] [place] [facility] [address] [facility], [address] * Thyroid peroxidase antibody (01/02/2024 10:31 AM CDT) Thyroid Peroxidase Antibody 20 <35 IU/mL 01/03/2024 9:53 AM CDT SPECIALTY CORE/PROT/ENDO Blood BLOOD SPECIMEN / Unknown Venipuncture / Unknown 01/02/2024 10:31 AM CDT 01/02/2024 10:32 AM CDT Lyssa Delcid MD LAB - BLOOD ORDER TRACEE SPECIALTY CORE/PROT/ENDO Specialty Core/Prot/Endo [address] [facility], [address] * T4 free (01/02/2024 10:31 AM CDT) Free T4 1.35 0.90 - 1.70 ng/dL 01/03/2024 3:24 AM CDT [facility] Blood BLOOD SPECIMEN / Unknown Venipuncture / Unknown 01/02/2024 10:31 AM CDT 01/02/2024 10:32 AM CDT Lyssa Delcid MD LAB - BLOOD ORDER TRACEE [facility] [place] [facility] [address] [facility], [address] [address] * MA Screening Bilateral w/ [...] Y ORDERABLES * HIV Antigen Antibody Combo [[id number]] (04/30/2023 7:50 AM CDT) HIV Antigen Antibody Combo Nonreactive Nonreactive 04/30/2023 12:41 PM CDT SPECIALTY CORE/PROT/EN DO Comment:HIV-1 p24 Ag & HIV-1 /HIV-2 Ab Not Detected Blood STRUCTURE OF RIGHT UPPER LIMB / Unknown Venipuncture / Unknown 04/30/2023 7:50 AM CDT 04/30/2023 8:00 AM CDT Darien Duval MD LAB - BLOOD OR DERABLES [facility] SPECIALTY CORE/PROT/ENDO [facility] Specialty Core/Prot/Endo [address] [facility] [address] [facility], Room [address] [phone] * Lipid panel reflex to direct LDL Fasting (04/30/2023 7:50 AM CDT) Cholesterol 168 <200 mg/dL 04/30/2023 8:24 AM CDT [facility] Triglycerides 62 <150 mg/dL 04/30/2023 8:24 AM CDT [facility] Direct Measure HDL 64 >=50 mg/dL 2022 8:24 AM CDT [facility] LDL Cholesterol Calculated 92 <=100 mg/dL 04/30/2023 8:24 AM CDT [facility] Non HDL Cholesterol 104 <130 mg/dL 04/30/2023 8:24 AM CDT [facility] Blood STRUCTURE OF RIGHT UPPER LIMB / Unknown Venipuncture / Unknown 04/30/2023 7:50 AM CDT 04/30/2023 8:00 AM CDT Narrative [facility] - 04/30/2023 8:24 [...] Duval MD LAB - BLOOD OR DERABLES [facility] [place] - [address] 1[address] [place] [address] * Hepatitis C antibody (04/30/2023 7:50 AM [...] DERABLES [facility] SPECIALTY CORE/PROT/ENDO Specialty Core/Prot/Endo 500 [facility] [address] [facility], Room [address] [phone] * Glucose (04/30/2023 7:50 AM CDT) Glucose 91 70 - 99 mg/dL 04/30/2023 8:24 AM CDT [facility] Patient Fasting > 8hrs? Unknown 04/30/2023 8:24 AM CDT [facility] Blood STRUCTURE OF RIGHT UPPER LIMB / Unknown Venipuncture / Unknown 04/30/2023 7:50 AM CDT 04/30/2023 8:00 AM CDT Darien Duval MD LAB - BLOOD OR DERABLES [facility] [place] - [address] 1[address] [place] [address] * Abstract HPV (HIM External Result) (01/04/2018 9:19 AM CDT) HPV Abstract See Scanned Document [facility] 01/04/2018 9:19 AM CDT [facility] - 01/04/2018 9:19 AM CDT PAP SMEAR/HPV [facility] - Lab Results Provider Outside LAB - HIM EXTERNAL R ESULT [facility] [address] [phone] * Abstract PAP (HIM External Result) (01/04/2018 9:19 AM CDT) PAP-ABSTRACT See Scanned Document [facility] 01/04/2018 9:19 AM CDT [facility] - 01/04/2018 9:19 AM CDT PAP SMEAR/[facility]PV [facility] - Lab Results Provider Outside LAB - [facility] EXTERNAL R ESULT Performing Organization Address [facility]/ZIP Co de Phone Number [facility] [address] [place] [address] from Last 3 Months or Most Recently Relevant to Health Maintenance Care Teams Marketing Underwriter Relationship Specialty Start Date End Date Alda Hawkins MD [address] [place] [id number] PCP - General Internal Medicine 04/30/23 Alda Hawkins MD [address] [address] Assigned PCP 03/23/22 Shy Marks PA-C [address] [place] [address] Assigned Surgical Provider 05/26/23 Lyssa Delcid MD [address] [place] [address] [address] [place] [address] Assigned Endocrinology Provider 01/29/24
--- OUTSIDE RECORDS SUMMARY | 2024-02-07 14:50 | XMS_ITS | Encounter Summary ---
Author Name Unknown Organization [facility] Address [address] [place] [address] Care Team Providers Care Refrigerator Mover Name Role Phone Elsewhere, Pcp Primary Care Provider Unavailabl e Encounter Details Date Type Department Care Team (Late st Contact Info) Description 11/26/2023 Orders Only Division of Gastroenterology in [place], [place] [address] [place] [address] Chemo Banks M.D. [address] [place] [address] Genetic Susceptibility To Disease Social History Tobacco Use Types Packs/Day [...] often do you attend chur ch or zoroastrian services? Never 06/23/2022 Do you belong to any clubs o r organizations such as jewish groups, unions, fraternal or athletic groups, or [...] and heating? Not hard at all 07/26/2023 [facility] - Occupational [...] living situation today? I have a [facility] place to live 07/26/2023 Education Answer Date [...] Procedure Name Priority Date/Time Associated Diagnosis Comments EXT TAPESTRY Routine 07/09/2022 12:00 AM CDT Genetic Susceptibility To Disease documented in this encounter Results * EXT Tapestry (07/09/2022 12:00 AM CDT) Gene Studied BRCA1,BRCA2,MLH1,MSH 2, MSH6,PMS2,EPCAM,APOB,L DLR,LDLRAP1,PCSK9 08/04/2022 12:00 AM CDT [place] Genetic Disease Assessed Evaluation of 11 genes associated with Hereditary Breast and Ovarian Cancer, Cisneros Syndrome and Familial Hypercholesterolemia. 08/04/2022 12:00 AM CDT [place] Genetic Analysis Overall Interpretation Negative results through Tapestry do not replace diagnostic testing for patients with a personal or family history of cancer/hypercholestero lemia due to limitations with methodology. Consider a referral to a genetic counselor for diagnostic testing if warranted. 08/04/2022 12:00 AM CDT [place] Genetic Analysis Report See Tapestry PDF Report No actionable gene changes were detected in the genes that cause Familial Hypercholesterolemia. The genes tested for this condition were APOB, LDLR, LDLRAP1, and PCSK9.No actionable gene changes were detected in the genes that cause Hereditary Breast and Ovarian Cancer. The genes tested for this condition were BRCA1 and BRCA2.No actionable gene changes were detected in the genes that cause Cisneros Syndrome. The genes tested for this condition were MLH1, MSH2, MSH6, PMS2 and EPCAM. DNA extracted from your saliva sample was captured and enriched using a custom set of reagents (InstallFree+ chemistry). Targeted regions were sequenced using an Illumina DNA sequencing system. Your sequence was matched to a modified version of the industry standard reference genome (GRCh38). Variant calling was completed using a customized version of [employer]'s [employer] software, requiring 20x coverage for validated variant calls. Copy Number Variants (CNVs) were called using a proprietary bioinformatics pipeline that compared the coverage profile of your sample with the coverage profiles of other reference set samples. [facility] [employer] Software then analyzed the generated variant data for the exons and 10 bp of flanking intronic sequence (and select tagged intronic variants) of the 11 genes included in [employer] from the [employer] Database. Your sample was reviewed for single nucleotide variants (SNVs), indels up to 20 bp in length, and CNVs that are known or predicted to be actionable. NOTE: This assay has limited sensitivity to CNVs smaller than a few exons. APOB, PCSK9, and LDLR interpretation and reporting is specific to the Familial Hypercholesterolemia phenotype. Variants associated with other phenotypes such as Hypobetalipoproteinemi a are not included. Some known complex variants like the inversion of exons 1-7 in the MSH2 gene (Nena inversion), exons 11-15 of the PMS2 gene, or variants within or immediately adjacent to long homopolymer runs are not analyzed or reported. There are regions that are not covered, such as deep intronic, promoter, and enhancer regions. This assay cannot detect all variants known to increase disease risk. Other clinical diagnostic testing for these conditions could identify variants not detected by this test. If you have had previous testing, these results should be taken into consideration during risk assessments and medical management. 08/04/2022 12:00 AM [employer] Human Reference Sequence Assembly [id number] 08/04/2022 12:00 AM CDT [place] Saliva (Mouth) 07/09/2022 Chemo Banks M.D. LAB GENETI C TESTING HELIX CAPPTURE [address] [facility], [address] [place] [address], [facility] [place] HELIX [address] [facility], [address]. [place] [address] documented in this encounter Visit Diagnoses Diagnosis Genetic Susceptibility To Disease documented in this encounter Care Teams Refrigerator Mover Relationship Specialty Start Date End Date Elsewhere, Pcp PCP - General Internal Medicine 08/01/23 documented as of this encounter
--- OUTSIDE RECORDS SUMMARY | 2024-02-07 14:50 | XMS_ITS ---
Author Name Unknown Organization [facility] Address [address] [place] [address] Care Team Providers Care Analytics Developer Name Role Phone Elsewhere, Pcp Primary Care Provider Unavailabl e Status:Enrolled (Active) Start date:06/03/2021 Enrollment date:06/03/2021 Current support & services provided:Lillie Continued Care and Services Coordination
--- OUTSIDE RECORDS SUMMARY | 2024-02-07 14:50 | XMS_ITS | Encounter Summary ---
Author Name Unknown Organization [place] Address [address] [facility] [place] [address] Care Team Providers Care Supervisor Roller Printing Name Role Phone Logeais, Alda BEST Unavailable Logeais, Alda BEST Primary Care Provider [phone] Shy Marks PA-C Unavailable [phone] Lyssa Delcid MD Unavailable [phone] Encounter Details Date Type Department Care Team (Late st Contact Info) Description 08/03/2023 [facility] [address] [place] [address] [facility] Social History Tobacco Use Types Packs/Day Years [...] on filedocumented in this encounter Care Teams Supervisor Roller Printing Relationship Specialty Start Date End Date Alda Hawkins MD [address] [facility] [address] [place] [address] PCP - General Internal Medicine 04/30/23 Alda Hawkins MD [address] [address] Assigned PCP 03/23/22 Shy Marks PA-C [address] [place] [address] Assigned Surgical Provider 05/26/23 Lyssa Delcid MD [address] [place] [address] [place] [address] Assigned Endocrinology Provider 01/29/24 documented as of this encounter
--- OUTSIDE RECORDS SUMMARY | 2024-02-07 14:50 | XMS_ITS | Encounter Summary ---
Author Name Unknown Organization [facility] Address [address] [facility] [place] [address] Care Team Providers Care Cracker Off Name Role Phone Logeais, Alda BEST Unavailable Logeais, Alda BEST Primary Care Provider [phone] Shy Marks PA-C Unavailable Reason for Visit * Reason Comments New Patient Fatigue Family history of thyroid disease * Diagnostic Imaging Dexa (Routine) - Pending Review Specialty Diagnoses / Procedures Referred By Brayan buenrostro Referred To Contact Radiology. Diagnoses Encounter for preventative adult health care examination Procedures DX Hip/Pelvis/Spine Darien Duval MD [address] [place] [address] [address] [place] [address] Referral ID Status Reason Start Date Expiration Date V isits Requested Visits Authorized [id number] Pending Review 04/25/2023 04/24/2024 1 1 Encounter Details Date Type Department Care Team (Late st Contact Info) Description 01/02/2024 10:00 AM CDT Office Visit [facility] [address] [place] [address] Lyssa Delcid MD [address] [place], [place] [address] Family history of thyroid disease (Primary Dx) Social History Tobacco Use Types [...] PM CDT documented as of this encounter Last [...] Mass Index 25.58 01/02/2024 9:59 AM CDT documented in this encounter Patient Instructions * Patient Instructions* Lyssa Delcid MD - 01/02/2024 10:00 AM CDT -[facility] Dr Delcid, Endocrinology Department [facility] [address] [place] [address] Appointment [phone] [place]: Sunday - Please check the cost coverage and copay with insurance before recommended tests, services and medications (especially if new medications are prescribed). If ordered, please get blood work done 1 week prior to your next appointment so they will be available to Dr. Delcid at your visit. Labs today. Further work up based on that. documented in this encounter Progress Notes * Lyssa Delcid MD - 01/02/2024 10:00 AM CDT ENDOCRINOLOGY CLINIC NOTE: Name: Janis Borrero Seen in consultation with Darien Duval MD for Family history of thyroid disease. HPI: Janis Borrero is a 43 year old female who presents for the evaluation of above. has a past medical history of ADPKD (autosomal dominant polycystic kidney disease), Benign essential hypertension, Bilateral breast cysts, GIL (generalized anxiety disorder), and Liver disease, cystic, congenital. Strong FH-- mother, maternal grandmother and brother with Luis and all are on levothyroxine. Janis has never been thyroid medication + chronic fatigue X more in last 3 years. She reports that her mother had similar s/s when she was diagnosed with hypothyroidism. She is wondering if complete thyroid work up can be done. Previous labs showed normal TSH over years and neg TPO. Palpitations: No Changes to hair or skin: Yes: + dry skin this year in winter Diarrhea/Constipation:Yes: on and off constipation Changes in menses: on IUD. Has 1 kid. Changes in vision:No Dysphagia or Shortness of breath:No Tremors:No Changes in weight: Yes: gradual wt gain in last 2 year ( about 15 lbs) Heat or cold intolerance: + cold History of [place] or Amiodarone use:No Head or neck surgery/radiation:No Family History of Thyroid cancer: no Wt Readings from Last 2 Encounters: 01/02/24 76.3 kg (168 lb 3.2 oz) 04/30/23 76.2 kg (168 lb) PMH/PSH: Past Medical History: Diagnosis Date ADPKD (autosomal dominant polycystic kidney disease) Benign essential hypertension Bilateral breast cysts s/p drainage GIL (generalized anxiety disorder) Liver disease, cystic, congenital Past Surgical History: Procedure Laterality Date NO HISTORY OF SURGERY Family Hx: Family History Problem Relation Age of Onset Hypertension Mother Luis's thyroiditis Mother Hypertension Father Cerebrovascular Disease Maternal Grandmother Alzheimer Disease Maternal Grandmother CABG Maternal Grandfather 4V Colon Cancer Paternal Grandfather Congenital heart disease Brother bicuspid AV Melanoma No family hx of Skin Cancer No family hx of Social Hx: Social History Socioeconomic History Marital status: Spouse name: Not on file Number of children: Not on file Years of education: Not on file Highest education level: Not on file Occupational History Not on file Tobacco Use Smoking status: Never Smokeless tobacco: Never Substance and Sexual Activity Alcohol use: Not on file Drug use: Not on file Sexual activity: Not on file Other Topics Concern Not on file Social History Narrative Not on file Social Determinants of Health Financial Resource Strain: Not on file Food Insecurity: Not on file Transportation Needs: Not on file Physical Activity: Not on file Stress: Not on file Social Connections: Not on file Interpersonal Safety: Not At Risk (04/30/2023) Humiliation, Afraid, Rape, and Kick questionnaire Fear of Current or Ex-Partner: No Emotionally Abused: No Physically Abused: No Sexually Abused: No Housing Stability: Not on file MEDICATIONS: has a current medication list which includes the following prescription(s): candesartan, escitalopram, levonorgestrel, and jynarque. ROS ROS: 10 point ROS neg other than the symptoms noted above in the HPI. Physical Exam VS: BP 122/72 (BP Location: Left arm, Patient Position: Chair, Cuff Size: Adult Regular) Pulse 71 Temp 98.7 ??F (37.1 ??C) (Tympanic) Resp 16 Ht 1.727 m (5' 7.99) Wt 76.3 kg (168 lb 3.2 oz) LMP (LMP Unknown) SpO2 100% No BMI 25.58 kg/m?? GENERAL: healthy, alert and no distress EYES: Eyes grossly normal to inspection, conjunctivae and sclerae normal ENT: no nose swelling, nasal discharge. Thyroid: no apparent thyroid nodules. Thyroid appears normal in size and nontender. CV: RRR, no rubs, gallops, no murmurs RESP: CTAB, no wheezes, rales, or ronchi ABDO: +BS EXTREMITIES: no hand tremors. NEURO: Cranial nerves grossly intact, mentation intact and speech normal SKIN: No apparent skin lesions, rash or edema seen PSYCH: mentation appears normal, affect normal/bright, judgement and insight intact, normal speech and appearance well-groomed LABS: TFTs: Latest Ref Rng 04/30/2023 7:50 AM [facility]O THYROID [facility] TSH 0.30 - 4.20 uIU/mL 1.52 TG/TPO: Latest Ref Rng 04/12/2022 7:26 AM [facility]O [facility] Thyroid Peroxidase Antibody <35 IU/mL 21 All pertinent notes, labs, and images personally reviewed by me. A/P Ms.Angela Mayo Borrero is a 43 year old here for the evaluation of hypothyroidism: #1. FH of thyroid problems: Strong FH of thyroid problems as noted above. She is not on thyroid hormone replacement. TPO neg. + fatigue. Plan: Discussed diagnosis, pathophysiology, management and treatment options of condition with pt. Labs today. Further work up based on that. I discussed that fatigue can be multifactorial. As long as thyroid labs are in normal range thyroidhormone replacement is not indicated. Standard treatment for hypothyroidism involves daily use of the synthetic thyroid hormone levothyroxine (Levothroid, Synthroid, others). The dosage of thyroxine should normally be that required to bring the serum TSH level to the low normal range, such as 0.3 - 1 uU/ml. This is typically achieved with 1 ug L- T4/lb body weight/day, ranges from 75 - 125 ug/day in women, and 125 - 200 ug/day in men.Once thyroxine treatment is initiated, it is required indefinitely in most patients. Symptoms should improve one to two weeks after starting treatment. Treatment with levothyroxine is usually lifelong. Doseage may need to be adjusted based on body weight, medications, or . To determine the right dosage of levothyroxine initially we will repeat TSH and free T4 after two months. Excessive amounts of the hormone can cause side effects, such as: Increased appetite, insomnia, heart palpitations, and shakiness. Patients with CAD will be started on a lower dose. Levothyroxine causes virtually no side effects when used in the appropriate dose. In patients with childbearing age precaution should be taking regarding hypothyroidism. Hypothyroidwoman are more likely to experience infertility, and they have an increase. Balance and portion, anemia, and gestational hypertension, placental abruption and hemorrhage. Certain medications, supplements and foods can affect the body???s ability to absorb levothyroxine.Medications include: Iron supplements, Cholestyramine and Calcium supplements. Discussed indications, risks and benefits of all medications prescribed, and answered questions to patient's satisfaction. The longitudinal plan of care for the diagnosis(es)/condition(s) as documented were addressed during this visit. Due to the added complexity in care, I will continue to support Princess in the subsequent management and with ongoing continuity of care. All questions were answered. The patient indicates understanding of the above issues and agrees with the plan set forth. Follow-up: As noted in AVS Lyssa Delcid MD Endocrinology [facility]/Kris CC: Alda Hawkins documented in this encounter Miscellaneous Notes * Result Encounter Note - Lyssa Delcid MD - 01/02/2024 10:00 AM CDT Janis Recently done endocrinology lab test/ imaging test showed: TPO antibodies are negative. This means that you DO NOT have Hashimots thyroiditis which is associated with underactive thyroid. Thyroid labs are in acceptable range. Based on labs thyroid hormone replacement is not indicated at this time. Recommend recheck labs with primary care provider in 6-12 months or sooner if concerns. Here is a copy for your records. Please call endocrinology clinic ) if questions. Lyssa Delcid MD Endocrinology [facility] January 03, 2024 documented in this encounter Plan of Treatment Not on file documented as of this encounter Procedures Procedure Name Priority Date/Time Associated Diagnosis Comments TSH Routine 01/02/2024 10:31 AM CDT Family history of thyroid disease THYROID PEROXIDASE ANTIBODY Routine 01/02/2024 10:31 AM CDT Family history of thyroid disease T4 FREE Routine 01/02/2024 10:31 AM CDT Family history of thyroid disease documented in this encounter Results * Thyroid peroxidase antibody (01/02/2024 10:31 AM CDT) Thyroid Peroxidase Antibody 20 <35 IU/mL 01/03/2024 9:53 AM CDT [facility]/PROT/ENDO Blood BLOOD SPECIMEN / Unknown Venipuncture / Unknown 01/02/2024 10:31 AM CDT 01/02/2024 10:32 AM CDT Lyssa Delcid MD LAB - BLOOD ORDER [place] SPECIAL[facility] CORE/PROT/ENDO Specialty Core/Prot/Endo [address] [facility], [address] * TSH (01/02/2024 10:31 AM CDT) TSH 0.86 0.30 - 4.20 uIU/mL 01/03/2024 3:24 AM CDT [facility] Blood BLOOD SPECIMEN / Unknown Venipuncture / Unknown 01/02/2024 10:31 AM CDT 01/02/2024 10:32 AM CDT Lyssa Delcid MD LAB - BLOOD ORDER [place] [facility] [place] Core Lab 500 [facility], [address] * T4 free (01/02/2024 10:31 AM CDT) Free T4 1.35 0.90 - 1.70 ng/dL 01/03/2024 3:24 AM CDT [facility] Blood BLOOD SPECIMEN / Unknown Venipuncture / Unknown 01/02/2024 10:31 AM CDT 01/02/2024 10:32 AM CDT Lyssa Delcid MD LAB - BLOOD ORDER [place] [facility] [place] Core Lab [address] [facility], [address] [place] [address] documented in this encounter Visit Diagnoses Diagnosis Family history of thyroid disease- Primary Family history of other endocrine and metabolic diseases documented in this encounter Care Teams Cracker Off Relationship Specialty Start Date End Date Alda Hawkins MD [address] [phone] PCP - General Internal Medicine 04/30/23 Alda Hawkins MD [address] [phone] Assigned PCP 03/23/22 Shy Marks PA-C [address] [place] [address] [phone] Assigned Surgical Provider 05/26/23 documented as of this encounter
[2024-02-07 16:02] LABS: Albumin* 4.2 g/dL (3.3-5.0); Chloride* 105 mmol/L (96-114); Potassium* 4.2 mmol/L (3.6-5.1); Sodium* 138 mmol/L (135-149)
[2024-02-07 16:04] LABS: Anion Gap 6 mEq/L (7-15); Aspartate Amino Transferase* 21 U/L (12-35); Bilirubin Total* 0.9 mg/dL (0.1-1.5); Carbon Dioxide* 27 mmol/L (20-32); Creatinine* 0.9 mg/dL (0.5-1.5); Estimated Glomerular Filt Rate 81 ml/min
[2024-02-07 16:05] LABS: Alanine Aminotransferase* 12 U/L (4-35); Alkaline Phosphatase* 42 U/L (40-150); Blood Urea Nitrogen* 11 mg/dL (5-24); Calcium* 9.3 mg/dL (8.4-10.6); Glucose* 82 mg/dL (60-115)
== END 2024-02-07 14:45 | disposition home or self-care (01) ==
LOC: NPINS 14:44
PROVIDERS: PCP Physician Assistant Medical; Visit Provider Internal Medicine Nephrology
DX: Q61.2 Polycystic kidney, adult type (principal)
CPT/HCPCS: 80053

== ENCOUNTER 2024-03-27 08:03 | Outpatient (CLI) | payer OTHER, SELFPAY ==
--- OUTSIDE RECORDS SUMMARY | 2024-03-27 08:06 | XMS_ITS | Referral Summary ---
Author Organization [facility] Address [address] [facility] [place] [address] Care Team Providers Care Elevator Repairer Name Role Phone Logeais, Alda BEST Unavailable Logeais, Alda BEST Primary Care Provider [phone] Shy Marks PA-C Unavailable Lyssa Delcid MD Unavailable [phone] Encounters Date Type Department Care Team Description 01/02/2024 Travel 01/02/2024 10:00 AM CDT Office Visit [facility] [address] [facility] [address] [place] [address] Lyssa Delcid MD Family history [...] EXTERNAL RESULT) Routine 01/04/2018 9:19 AM CDT from Last 3 Months or Most Recently Relevant to Health Maintenance Results * TSH (01/02/2024 10:31 AM CDT) TSH 0.86 0.30 - 4.20 uIU/mL 01/03/2024 3:24 AM CDT [facility] Blood BLOOD SPECIMEN / Unknown Venipuncture / Unknown 01/02/2024 10:31 AM CDT 01/02/2024 10:32 AM CDT Lyssa Delcid MD LAB - BLOOD ORDER [place] [facility] [place] Core Lab 500 [facility], [address] * Thyroid peroxidase antibody (01/02/2024 10:31 AM CDT) Thyroid Peroxidase Antibody 20 <35 IU/mL 01/03/2024 9:53 AM CDT [facility]/ENDO Blood BLOOD SPECIMEN / Unknown Venipuncture / Unknown 01/02/2024 10:31 AM CDT 01/02/2024 10:32 AM CDT Lyssa Delcid MD LAB - BLOOD ORDER [place] [facility]/PROT/ENDO [facility] Core/Prot/Endo 500 [facility], [address] * T4 free (01/02/2024 10:31 AM CDT) Free T4 1.35 0.90 - 1.70 ng/dL 01/03/2024 3:24 AM CDT [facility] Blood BLOOD SPECIMEN / Unknown Venipuncture / Unknown 01/02/2024 10:31 AM CDT 01/02/2024 10:32 AM CDT Lyssa Delcid MD LAB - BLOOD ORDER [place] [facility] [place] Core Lab 500 [facility], Room [address] * MA Screening Bilateral w/ Jadiel (04/30/2023 [...] Y ORDERABLES * HIV Antigen Antibody Combo [[id number]] (04/30/2023 7:50 AM CDT) HIV Antigen Antibody [...] Specialty Core/Prot/Endo 500 [facility], Room [address] [phone] * Lipid panel reflex to direct LDL Fasting (04/30/2023 7:50 AM CDT) Cholesterol 168 <200 mg/dL 04/30/2023 8:24 AM CDT [facility] Triglycerides 62 <150 mg/dL 04/30/2023 8:24 AM CDT [facility] Direct Measure HDL 64 >=50 mg/dL 2022 8:24 AM CDT [facility] LDL Cholesterol Calculated 92 <=100 mg/dL 04/30/2023 8:24 AM CDT [facility] Non HDL Cholesterol 104 <130 mg/dL 04/30/2023 8:24 AM CDT [facility] Blood STRUCTURE OF RIGHT UPPER LIMB / Unknown Venipuncture / Unknown 04/30/2023 7:50 AM CDT 04/30/2023 8:00 AM CDT Narrative [facility] - 04/30/2023 8:24 [...] Duval MD LAB - BLOOD OR DERABLES [facility]ORE LAB [facility] - [address] 1st [place] [address] * Hepatitis C antibody (04/30/2023 7:50 AM [...] OR DERABLES SPECIALTY CORE/PROT/ENDO Specialty Core/Prot/Endo 500 [facility], Room [address] [phone] * Glucose (04/30/2023 7:50 AM CDT) Pathologist [facility] Glucose 91 70 - 99 mg/dL 04/30/2023 8:24 AM CDT [facility] Patient Fasting > 8hrs? Unknown 04/30/2023 8:24 AM CDT [facility] Blood STRUCTURE OF RIGHT UPPER LIMB / Unknown Venipuncture / Unknown 04/30/2023 7:50 AM CDT 04/30/2023 8:00 AM CDT Darien Duavl MD LAB - BLOOD OR DERABLES [facility]ORE LAB [facility] - [place] [address] [facility] 1st [place] [address] * Abstract HPV (HIM External Result) (01/04/2018 9:19 AM CDT) Pathologist [facility] HPV Abstract See Scanned Document [facility] 01/04/2018 9:19 AM CDT Narrative [facility] - 01/04/2018 9:19 AM CDT PAP SMEAR/HPV [facility] - Lab Results Provider Outside LAB - HIM EXTERNAL R ESULT [facility] [address] [place] [address], [facility] [phone] * Abstract PAP (HIM External Result) (01/04/2018 9:19 AM CDT) PAP-ABSTRACT See Scanned Document [facility] 01/04/2018 9:19 AM CDT Narrative [facility] - 01/04/2018 9:19 AM CDT PAP SMEAR/HPV [facility] - Lab Results Provider Outside LAB - HIM EXTERNAL R ESULT Performing Organization Address City/[facility]/ZIP Co de Phone Number [facility] [address] [place] [address], [facility] [phone] from Last 3 Months or Most Recently Relevant to Health Maintenance Care Teams Elevator Repairer Relationship Specialty Start Date End Date Alda Hawkins MD [address] [place] [address] [phone] PCP - General Internal Medicine 04/30/23 LogAlda mg MD [address] [place] [address] [phone] Assigned PCP 03/23/22 Shy Marks PA-C [address] [place] [phone] Assigned Surgical Provider 05/26/23 Lyssa Delcid MD [address] [place] [phone] Assigned Endocrinology Provider 01/29/24
--- OUTSIDE RECORDS SUMMARY | 2024-03-27 08:06 | XMS_ITS | Encounter Summary ---
Author Organization [facility] Address [address] [place] [address]. [place] [address] Care Team Providers Care Die Cast Patternmaker Name Role Phone Logeais, Alda BEST Unavailable Logeais, Alda BEST Primary Care Provider [phone] Shy Marks PA-C Unavailable Lyssa Delcid MD Unavailable [phone] Reason for Visit * Reason Onset Date Comments Call Back 08/01/2023 Referral 08/01/2023 Encounter Details Date Type Department Care Team (Late st Contact Info) Description 08/01/2023 Telephone [facility] [address] [place] [address] None Call Back; Referral Social [...] on filedocumented in this encounter Care Teams Die Cast Patternmaker Relationship Specialty Start Date End Date Alda Hawkins MD [address] [place] [phone] PCP - General Internal Medicine 04/30/23 Alda Hawkins MD [address] [place] [phone] Assigned PCP 03/23/22 Shy Marks PA-C [address] [place] [phone] Assigned Surgical Provider 05/26/23 Lyssa Delcid MD [address] [place] [address] Assigned Endocrinology Provider 01/29/24 documented as of this encounter
--- OUTSIDE RECORDS SUMMARY | 2024-03-27 08:06 | XMS_ITS | Encounter Summary ---
Author Organization [facility] Address [address] [place] [address] Care Team Providers Care Shot Peening Operator Name Role Phone Elsewhere, Pcp Primary Care Provider Unavailabl e Reason for Visit * Reason Comments Med Refill Encounter Details Date Type Department Care Team (Late st Contact Info) Description 01/30/2024 Refill Division of Nephrology and Hypertension in [place], [place] [address] [place] [phone] Eldon Vazquez M.D., Ph.D. [address] [place] [address] Med Refill Social History Tobacco Use Types [...] often do you attend chur ch or sikh services? Never 06/23/2022 Do you belong to [...] and heating? Not hard at all 07/26/2023 [facility] of Occupat ional Health - Occupational Stress [...] your living situation today? I have a [facility] place to live 07/26/2023 Education Answer [...] Hypertension documented in this encounter Care Teams Shot Peening Operator Relationship Specialty Start Date End Date Elsewhere, Pcp PCP - General Internal Medicine 08/01/23 documented as of this encounter
--- OUTSIDE RECORDS SUMMARY | 2024-03-27 08:06 | XMS_ITS | Encounter Summary ---
Author Organization [place] Address [address] [place] [address]. [place] [address] Care Team Providers Care Chief Vendor Quality Name Role Phone LogeaAlda martinez MD Unavailable Matthew Ayala OD Unavailable [phone] Serafin Mason MD Unavailable [phone] Matthew Ayala OD Unavailable [phone] LogeaAlda martinez MD Primary Care Provider [phone] Shy Marks PA-C Unavailable [phone] Lyssa Delcid MD Unavailable [phone] Encounter Details Date Type Department Care Team (Late st Contact Info) Description 04/12/2022 [facility] [place] [facility] [address] [place] [address] Valerie Maza, RD [address] [place] [address] Social History Tobacco Use Types [...] on filedocumented in this encounter Care Teams Chief Vendor Quality Relationship Specialty Start Date End Date Alda Hawkins MD [address] [place] [address] [phone] PCP - General Internal Medicine 04/30/23 Alda Hawkins MD [address] [place] [address] [phone] Assigned PCP 03/23/22 Matthew Ayala OD [address] [place] [address] Assigned Surgical Provider 04/15/22 Serafin Mason MD [address] [address] Assigned Surgical Provider 02/03/2302/09/23 Matthew Ayala OD [address] [facility] [address] [place] [phone] Assigned Surgical Provider 02/10/23 Shy Marks PA-C [address] [place] [address] Assigned Surgical Provider 05/26/23 Lyssa Delcid MD [address] [place] [address] Assigned Endocrinology Provider 01/29/24 documented as of this encounter
--- OUTSIDE RECORDS SUMMARY | 2024-03-27 08:06 | XMS_ITS | Encounter Summary ---
Author Organization [facility] Address [address] [place] [address] Care Team Providers Care Director Life Name Role Phone LogeaAlda martinez MD Unavailable Matthew Ayala OD Unavailable [phone] LogeaisAlda MD Primary Care Provider [phone] Shy Marks PA-C Unavailable Lyssa Delcid MD Unavailable [phone] Encounter Details Date Type Department Care Team (Late st Contact Info) Description 04/30/2023 [facility] Medical Advice [facility] [address] [address] Valerie Maza, RD [address] [place] [address] Social History Tobacco Use Types [...] filedocumented in this encounter Care Teams Director Life Relationship Specialty Start Date End Date Alda Hawkins MD [address] [place] [phone] PCP - General Internal Medicine 04/30/23 Alda Hawkins MD [address] [place] [address] Assigned PCP 03/23/22 Matthew Ayala OD [address] [place] [phone] Assigned Surgical Provider 02/10/23 Shy Marks PA-C [address] [place] [address] Assigned Surgical Provider 05/26/23 Lyssa Delcid MD [address] [place] [address] Assigned Endocrinology Provider 01/29/24 documented as of this encounter
--- OUTSIDE RECORDS SUMMARY | 2024-03-27 08:06 | XMS_ITS | Encounter Summary ---
Author Organization [facility] Address [address] [place] [address]. [place] [address] Care Team Providers Care Physical Security Specialist Name Role Phone LogeaisAlda MD Unavailable Logeais, Alda BETS Primary Care Provider [phone] Shy Marks PA-C Unavailable [phone] Lyssa Delcid MD Unavailable [phone] Reason for Referral * Consultation (Routine: Next available opening) - Pending Review Specialty Diagnoses / Procedures Referred By Brayan buenrostro Referred To Contact Endocrinology, Diabetes, and Metabolism Diagnoses Family history of thyroid disease in mother Family history thyroid disease in brother Family history of thyroid disease in grandmother Fatigue, unspecified type Darien Duval MD [address] [place] [address] Referral ID Status Reason Start Date Expiration Date V isits Requested Visits Authorized [id number] Pending Review 07/31/2023 07/30/2024 1 1 Question Answer Reason for Referral: Thyroid Scheduling Instructions: [email or web address] will call you to coordinate your care as prescribed by the provider. If you don? t hear from a packaging sales representative within 2 business days, please call [phone]. Additional Information: 42-y.o. woman requests evaluation of [...] plan with any benefit or coverage questions. [facility] [employer] [facility] will call you to coordinate your care as prescribed by the provider. If you don? t hear from a packaging sales representative within 2 business days, please call [phone]. Encounter Details Date Type Department Care Team (Late st Contact Info) Description 07/31/2023 MyC Medical Advice [facility] [address] [facility] [address] 5th [place] [address] Darien Duval MD [address] [facility] 741 [place] [address] Family history of thyroid disease [...] Associated Diagnoses Orde r Schedule Adult Endocrinology Spouting Installer Referral Referral Routine: Next available opening Family [...] type documented in this encounter Care Teams Physical Security Specialist Relationship Specialty Start Date End Date Alda Hawkins MD 909 [facility] 4TH [place] [address] PCP - General Internal Medicine 04/30/23 Alda Hawkins MD [address] [address] Assigned PCP 03/23/22 Shy Marks PA-C [address] [place] [address] Assigned Surgical Provider 05/26/23 Lyssa Delcid MD [address] [facility] 200 [place] [address] Assigned Endocrinology Provider 01/29/24 documented as of this encounter
--- OUTSIDE RECORDS SUMMARY | 2024-03-27 08:06 | XMS_ITS | Encounter Summary ---
Author Organization [facility] Address [address] [place] [address] Care Team Providers Care Showroom Salesperson Name Role Phone Elsewhere, Pcp Primary Care Provider Unavailabl e Encounter Details Date Type Department Care Team (Late st Contact Info) Description 12/31/2023 Clinical Communication Division of Nephrology and Hypertension in [place], [place] [address] [place] [address] Alo Pearson R.N. [address] [place] [address] Social History Tobacco Use Types Packs/Day Years [...] often do you attend chur ch or restorationist services? Never 06/23/2022 Do you belong to any clubs o r organizations such as confucianism groups, unions, fraternal or athletic groups, or [...] and heating? Not hard at all 07/26/2023 [facility] [place] of Occupat ional Health - Occupational Stress [...] your living situation today? I have a [facility] to live 07/26/2023 Education Answer [...] on filedocumented in this encounter Care Teams Showroom Salesperson Relationship Specialty Start Date End Date Elsewhere, Pcp PCP - General Internal Medicine 08/01/23 documented as of this encounter
--- OUTSIDE RECORDS SUMMARY | 2024-03-27 08:06 | XMS_ITS | Clinical Summary ---
Author Organization [place] Address [address] [facility] [place] [address] Care Team Providers Care Community Health Advisor Name Role Phone Logeais, Alda BEST Unavailable Logeais, Alda BEST Primary Care Provider [phone] Shy Marks PA-C Unavailable Lyssa Delcid MD Unavailable [phone] Allergies Active Allergy Reactions Criticality Noted Date [...] Description 01/02/2024 10:00 AM CDT Office Visit [facility] [address] [place] [address] Lyssa Delcid MD Family history [...] 19+ 3-dose series) 12/21/1999 HPV TEST 01/04/2023 01/04/2018 PAP 01/04/2023 01/04/2018, 01/04/2018 COVID-19 Vaccine ( season) 2023 07/07/2022, 09/09/2021, 02/05/2021, Additional history exists PHQ-2 (once per calendar year) 2023 04/30/2023, 04/30/2023, 04/12/2022, Additional history exists YEARLY PREVENTIVE VISIT 06/25/2024 06/25/20 23, 04/30/2023, 04/12/2022, Additional history exists MAMMO SCREENING 04/30/2025 04/30/2023, 06/0 04/2021, 03/14/2021, Additional history exists GLUCOSE 04/30/2026 [...] LAB - BLOOD ORDER [facility] [address] [facility], [address] * Thyroid peroxidase antibody (01/02/2024 10:31 AM CDT) Thyroid Peroxidase Antibody 20 <35 IU/mL 01/03/2024 9:53 AM CDT SPECIALTY CORE/PROT/ENDO Blood BLOOD SPECIMEN / Unknown Venipuncture / Unknown 01/02/2024 10:31 AM CDT 01/02/2024 10:32 AM CDT Lyssa Delcid MD LAB - BLOOD ORDER [facility] SPECIALTY CORE/PROT/ENDO Specialty Core/Prot/Endo 500 [facility] [address] Building, [address] * T4 free (01/02/2024 10:31 AM CDT) Free T4 1.35 0.90 - 1.70 ng/dL 01/03/2024 3:24 AM CDT [facility] Blood BLOOD SPECIMEN / Unknown Venipuncture / Unknown 01/02/2024 10:31 AM CDT 01/02/2024 10:32 AM CDT Lyssa Delcid MD LAB - BLOOD ORDER [facility] [place] [facility] 500 [facility] [address] Building, [address] [place] [address], [facility] * MA Screening Bilateral w/ Jadiel (04/30/2023 [...] Y ORDERABLES * HIV Antigen Antibody Combo [[id number]] (04/30/2023 7:50 AM CDT) HIV Antigen Antibody Combo Nonreactive Nonreactive 04/30/2023 12:41 PM CDT SPECIALTY CORE/PROT/EN DO Comment:HIV-1 p24 Ag & HIV-1 /HIV-2 Ab Not Detected Blood STRUCTURE OF RIGHT UPPER LIMB / Unknown Venipuncture / Unknown 04/30/2023 7:50 AM CDT 04/30/2023 8:00 AM CDT Darien Duval MD LAB - BLOOD OR DERABLES UM SPECIALTY CORE/PROT/ENDO UM Specialty Core/Prot/Endo 500 [facility], Room [address] [place] [address] * Lipid panel reflex to direct LDL Fasting (04/30/2023 7:50 AM CDT) Cholesterol 168 <200 mg/dL 04/30/2023 8:24 AM CDT [facility] - CORE LAB Triglycerides 62 <150 mg/dL 04/30/2023 8:24 AM CDT [facility] - CORE LAB Direct Measure HDL 64 >=50 mg/dL 2022 8:24 AM CDT [facility] - CORE LAB LDL Cholesterol Calculated 92 <=100 mg/dL 04/30/2023 8:24 AM CDT [facility] - CORE LAB Non HDL Cholesterol 104 <130 mg/dL 04/30/2023 8:24 AM CDT [facility] - CORE LAB Blood STRUCTURE OF RIGHT UPPER LIMB / Unknown Venipuncture / Unknown 04/30/2023 7:50 AM CDT 04/30/2023 8:00 AM CDT Narrative [facility] - CORE LAB - 04/30/2023 8:24 [...] Duval MD LAB - BLOOD OR DERABLES [facility] - CORE LAB [facility] [place] - [address] 1st [place] [address] * Hepatitis C antibody (04/30/2023 7:50 AM [...] BLOOD OR DERABLES SPECIALTY CORE/PROT/ENDO Specialty Core/Prot/Endo [address] [place] [address] [address] Building, Room [address] [phone] * Glucose (04/30/2023 7:50 AM CDT) Glucose 91 70 - 99 mg/dL 04/30/2023 8:24 AM CDT [facility] - CORE LAB Patient Fasting > 8hrs? Unknown 04/30/2023 8:24 AM CDT [facility] - CORE LAB Blood STRUCTURE OF RIGHT UPPER LIMB / Unknown Venipuncture / Unknown 04/30/2023 7:50 AM CDT 04/30/2023 8:00 AM CDT Darien Duval MD LAB - BLOOD OR DERABLES [facility] - CORE LAB [facility] [place] - [address] 1st [place] [address] * Abstract HPV (HIM External Result) (01/04/2018 9:19 AM CDT) HPV Abstract See Scanned Document [facility] 01/04/2018 9:19 AM CDT [facility] - 01/04/2018 9:19 AM CDT PAP SMEAR/HPV [facility] - Lab Results Provider Outside LAB - HIM EXTERNAL R ESULT Performing Organization Address City/[facility]/ZIP Co de Phone Number [facility] [address] [phone] * Abstract PAP (HIM External Result) (01/04/2018 9:19 AM CDT) PAP-ABSTRACT See Scanned Document [facility] 01/04/2018 9:19 AM CDT [facility] - 01/04/2018 9:19 AM CDT PAP SMEAR/HPV [facility] - Lab Results Provider Outside LAB - HIM EXTERNAL R ESULT Performing Organization Address City/[facility]/ZIP Co de Phone Number [facility] [address] [phone] from Last 3 Months or Most Recently Relevant to Health Maintenance Care Teams Community Health Advisor Relationship Specialty Start Date End Date Alda Hawkins MD [address] [address] PCP - General Internal Medicine 04/30/23 Alda Hawkins MD [address] [address] Assigned PCP 03/23/22 Shy Marks PA-C [address] [place] [address] Assigned Surgical Provider 05/26/23 Lyssa Delcid MD [address] [facility] 200 [place] [address] Assigned Endocrinology Provider 01/29/24
--- OUTSIDE RECORDS SUMMARY | 2024-03-27 08:06 | XMS_ITS | Clinical Summary ---
Author Organization [facility] Address [address] [place] [address] Care Team Providers Care Leather Heel Breaster Name Role Phone Rosemarie Portillo APRN, CNP Primary Care Provid er Source Comments You are receiving this document as you are listed as the primary care provider,follow-up provider, or the patient has been referred to you for consultation.This is in compliance with the Medicare and[facility] EHR Incentive Program,which states Providers who transition their patient to another setting of careor provider of care or refers their patient to another provider of care shouldprovide summary care record for each transition of care or referral. [facility] Allergies No known active allergies Medications Medication [...] 36.1 ??C (97 ??F) 11/27/2013 9:56 AM PASTE UP COPY CAMERA OPERATOR Respiratory Rate 16 10/21/2002 4:50 PM PASTE UP COPY CAMERA OPERATOR Oxygen Saturation - - Inhaled Oxygen Concentration - - Weight 69.4 kg (153 lb) 08/09/2016 8:25 AM CDT Height 171.5 cm (5' 7.5) 11/27/2013 9:56 AM PASTE UP COPY CAMERA OPERATOR Body Mass Index 23.61 11/27/2013 9:56 AM PASTE UP COPY CAMERA OPERATOR Plan of Treatment Health Maintenance Due Date Last Done Comments Cervical Cancer Screening Due 1980 Hep C Screening (Preventive Services) 1980 HIV Screening (Preventive Services) 1996 Adult Preventive Visit 1998 HepB (1) 12/21/1999 DTaP/Tdap/Td (2 - Tdap) 07/21/2020 07/21/2010 COVID-19 Vaccine (2 - 2022-2 4 season) 2023 01/13/2021 Influenza (Season Ended) 2024 011, 07/21/2010 Zoster/Shingles (1 of 2) 2030 HPV [...] age to complete this topic Care Teams Leather Heel Breaster Relationship Specialty Start Date End Date Rosemarie Portillo, COMPLIANCE REVIEWER, SCRIPT COORDINATOR [address] [place], [place] [address] [facility] - General 06/08/16
--- OUTSIDE RECORDS SUMMARY | 2024-03-27 08:06 | XMS_ITS | Referral Summary ---
Author Organization [facility] Address [address] [place] [address] Care Team Providers Care Entry Analyst Name Role Phone Elsewhere, Pcp Primary Care Provider Unavailabl e Source Comments Patient records contain information from all sites at [facility]. For routine questions regarding patient records, call [phone] during business hours, M-F 8:00 AM - 5:00 PM Central Time. Record requests for emergency care only can be directed to [phone] at any time.[facility] Encounters Date Type Department Care Team Description 02/11/2024 Clinical Communication Division of Nephrology and Hypertension in [place], [place] [address] [place] [address] Teri Murphy, R.N. 01/30/2024 Refill Division of Nephrology and Hypertension in [place], [place] [address] [place] [address] Eldon Vazquez M.D., Ph.D. Med Refill 12/31/2023 Clinical Communication Division of Nephrology and Hypertension in [place], [place] [address] [place] [address] Alo Pearson, RPetty. from Last 3 Months Allergies Active Allergy [...] 11 12/31/2023 Active candesartan (ATACAND) 8 mg tabletIndications:O ther Secondary Hypertension TAKE 1 TABLET(8 MG) BY MOUTH DAILY 90 tablet 3 01/30/2024 Active Social History Tobacco Use Types Packs/Day [...] often do you attend chur ch or latter day services? Never 06/23/2022 Do you belong to any clubs o r organizations such as christian groups, unions, fraternal or athletic groups, or [...] and heating? Not hard at all 07/26/2023 [facility] [place] of Occupat ional Health - Occupational Stress [...] Date Recorded Dental: Regular Dentist Yes 06/23/20 22 Employment Answer Date Recorded Employment status Employed and actively working without restrictions 07/26/2023 Housing Stability Answer Date Recorded What is your living situation today? 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 BI BREAST SCREENING BILATERAL WITH TOMOSYNTHESIS Routine 04/30/2023 11:31 AM CDT PATHOLOGY [facility] CYTOLOGY Routine 08/16/2006 2:28 PM WATCH TRAIN INSPECTOR from Last 3 Months or Most Recently Relevant to Health Maintenance Results * EXT Complete Metabolic Panel, Blood (02/07/2024) EXT Total Protein 7.0 6.0 - 8.3 LOS NOT ASSIGNED EXT Albumin 4.2 3.3 - 5.0 g/dL LOS NOT ASSIGNED EXT AST 21 12 - 35 LOS NOT ASSIGNED EXT Alkaline Phosphatase 42 40 - 150 LOS NOT ASSIGNED EXT ALT 12 4 - 35 LOS NOT ASSIGNED EXT Bilirubin, Total 0.9 0.1 - 1.5 mg/dL LOS NOT ASSIGNED EXT BUN (Blood Urea Nitrogen) 11 5 - 24 LOS NOT ASSIGNED EXT Calcium, Total 9.3 8.4 - 10.6 LOS NOT ASSIGNED EXT Chloride 105 96 - 114 LOS NOT ASSIGNED EXT CO2 27 20 - 32 LOS NOT ASSIGNED EXT Creatinine 0.9 0.5 - 1.5 mg/dL LOS NOT ASSIGNED EXT Glucose 82 60 - 115 LOS NOT ASSIGNED EXT Potassium 4.2 3.6 - 5.1 LOS NO T ASSIGNED EXT Sodium 138 135 - 149 mmol/L LOS NOT ASSIGNED Blood (Blood, Venous) 02/07/2024 Historical Provider LAB BLOOD NON ADD-ON LOS NOT ASSIGNED * Lipid Panel (08/01/2023 9:46 AM CDT) [...] Vazquez M.D., Ph.D. LAB BLOOD A DD-ON [facility] [address] [place] [address], [facility] DTL [facility] [address] [place] [address] * Pathology [facility] Cytology (08/16/2006 2:28 PM WATCH TRAIN INSPECTOR) 08/16/2006 2:28 PM WATCH TRAIN INSPECTOR 08/16/2006 2:28 PM WATCH TRAIN INSPECTOR Narrative [facility] - 08/16/2006 2:28 PM WATCH TRAIN INSPECTOR ??08/16/2006 Cytology Gynecological ?([id number]) ? Requested By: ??Catrina Schmitz M.D. ??[phone] ?DIAGNOSIS: ?? A. ??ThinPrep Pap Test Screen (Cervical/Endocervical HPV Reflex): ?Satisfactory for evaluation. ?Negative for intraepithelial lesion or malignancy. ? 08/17/2006 ?HE Jordan (ASCP) Silvina Sanchez M.D. ?[phone] ?? SPECIMEN DESCRIPTION: A. ??ThinPrep Pap Test Screen (Cervical/Endocervical HPV Reflex): ?? Received cloudy specimen in ThinPrep vial. ? Procedure Note 01/01/2018 08/16/2006 Cytology Gynecological ([id number]) Requested By: Catrina Schmitz M.D. [phone] DIAGNOSIS: A. ThinPrep Pap Test Screen (Cervical/Endocervical HPV Reflex): Satisfactory for evaluation. Negative for intraepithelial lesion or malignancy. 08/17/2006 HE Jordan (ASCP) Silvina Sanchez M.D. [phone] SPECIMEN DESCRIPTION: A. ThinPrep Pap Test Screen (Cervical/Endocervical HPV Reflex): Received cloudy specimen in ThinPrep vial. Catrina Schmitz M.D. LAB PAP COPATH ORD RICHARDBLES [facility] [address] from Last 3 Months or Most Recently Relevant to Health Maintenance Care Teams Entry Analyst Relationship Specialty Start Date End Date Elsewhere, Pcp PCP - General Internal Medicine 08/01/23
--- OUTSIDE RECORDS SUMMARY | 2024-03-27 08:06 | XMS_ITS | Encounter Summary ---
Author Organization [place] Address [address] [place] [address]. [place] [address] Care Team Providers Care Timber Bucker Name Role Phone Logeais, Alda BEST Unavailable Logeais, Alda BEST Primary Care Provider [phone] Shy Marks PA-C Unavailable [phone] Lyssa Delcid MD Unavailable [phone] Encounter Details Date Type Department Care Team (Late st Contact Info) Description 08/03/2023 [facility] End[facility]ology Clinic [address] [address] [facility] Social History Tobacco Use Types Packs/Day Years [...] on filedocumented in this encounter Care Teams Timber Bucker Relationship Specialty Start Date End Date Alda Hawkins MD 909 [facility] 4TH [place] [address] PCP - General Internal Medicine 04/30/23 Alda Hawkins MD [address] [address] Assigned PCP 03/23/22 Shy Marks PA-C [address] [place] [address] Assigned Surgical Provider 05/26/23 Lyssa Delcid MD [address] [place] [address] [place] [address] Assigned Endocrinology Provider 01/29/24 documented as of this encounter
--- OUTSIDE RECORDS SUMMARY | 2024-03-27 08:06 | XMS_ITS | Encounter Summary ---
Author Organization [facility] Address [address] [place] [address]. [place] [address] Care Team Providers Care Psychiatrist Name Role Phone Logeais, Alda BEST Unavailable Logeais, Alda BEST Primary Care Provider [phone] Shy Marks PA-C Unavailable [phone] Lyssa Delcid MD Unavailable [phone] Encounter Details Date Type Department Care Team (Late st Contact Info) Description 08/07/2023 [facility] Endocrinology Clinic [address] [address] [facility] Social History Tobacco Use Types Packs/Day Years [...] on filedocumented in this encounter Care Teams Psychiatrist Relationship Specialty Start Date End Date Alda Hawkins MD 909 [facility] 4TH [place] [address] PCP - General Internal Medicine 04/30/23 Alda Hawkins MD [address] [address] Assigned PCP 03/23/22 Shy Marks PA-C [address] [place] [address] Assigned Surgical Provider 05/26/23 Lyssa Delcid MD [address] [place] [address] [place] [address] Assigned Endocrinology Provider 01/29/24 documented as of this encounter
--- OUTSIDE RECORDS SUMMARY | 2024-03-27 08:06 | XMS_ITS | Encounter Summary ---
Author Organization [place] Address [address] [facility] [place] [address] Care Team Providers Care Outside Energy Sales Representatives Name Role Phone Logeais, Alda BEST Unavailable Logeais, Alda BEST Primary Care Provider [phone] Shy Marks PA-C Unavailable [phone] Reason for Visit * Reason Comments New Patient Fatigue Family history of thyroid disease * Diagnostic Imaging Dexa (Routine) - Pending Review Specialty Diagnoses / Procedures Referred By Brayan buenrostro Referred To Contact Radiology. Diagnoses Encounter for preventative adult health care examination Procedures DX Hip/Pelvis/Spine Darien Duval MD [address] [place] [address] [address] [place] [address] Referral ID Status Reason Start Date Expiration Date V isits Requested Visits Authorized [id number] Pending Review 04/25/2023 04/24/2024 1 1 Encounter Details Date Type Department Care Team (Late st Contact Info) Description 01/02/2024 10:00 AM CDT Office Visit [facility] [address] [place] [address] Lyssa Delcid MD [address] [place] [address] [place], [place] [address] Family history of thyroid disease (Primary Dx) [...] Delcid MD - 01/02/2024 10:00 AM CDT -[facility] Dr Delcid, Endocrinology Department [place] [address] [address] [place] [address] Appointment [phone] [place]: Sunday - Please check the cost coverage [...] or cold intolerance: + cold History of [place] or Amiodarone use:No Head or neck surgery/radiation:No [...] noted in AVS Lyssa Delcid MD Endocrinology Nicko Jama/Kris CC: Alda Hawkins documented in this [...] ) if questions. Lyssa Delcid MD Endocrinology Nicko Vázquez January 03, 2024 documented in this [...] ORDER [place] SPECIALTY CORE/PROT/ENDO Specialty Core/Prot/Endo [address] [facility], Room [address] * TSH (01/02/2024 10:31 AM CDT) TSH 0.86 0.30 - 4.20 uIU/mL 01/03/2024 3:24 AM CDT [facility] Blood BLOOD SPECIMEN / Unknown Venipuncture / Unknown 01/02/2024 10:31 AM CDT 01/02/2024 10:32 AM CDT Lyssa Delcid MD LAB - BLOOD ORDER TRACEE [facility] [place] [facility] 500 [facility], [address] * T4 free (01/02/2024 10:31 AM CDT) Free T4 1.35 0.90 - 1.70 ng/dL 01/03/2024 3:24 AM CDT [facility] Blood BLOOD SPECIMEN / Unknown Venipuncture / Unknown 01/02/2024 10:31 AM CDT 01/02/2024 10:32 AM CDT Lyssa Delcid MD LAB - BLOOD ORDER [facility] [place] [facility] [address] [facility] Building, [address] [place] [address] documented in this encounter Visit Diagnoses Diagnosis Family history of thyroid disease- Primary Family history of other endocrine and metabolic diseases documented in this encounter Care Teams Outside Energy Sales Representatives Relationship Specialty Start Date End Date Alda Hawkins MD 909 [facility] 4TH [place], [place] [address] PCP - General Internal Medicine 04/30/23 Alda Hawkins MD [address] [address] Assigned PCP 03/23/22 Shy Marks PA-C [address] [place] [id number] Assigned Surgical Provider 05/26/23 documented as of this encounter
--- OUTSIDE RECORDS SUMMARY | 2024-03-27 08:06 | XMS_ITS ---
Author Organization [facility] Address [address] [place] [address] Care Team Providers Care Home Care Aide Name Role Phone Elsewhere, Pcp Primary Care Provider Unavailabl e Polycystic Kidney Disease (PKD) Status:Enrolled (Active) Start date:06/03/2021 Enrollment date:06/03/2021 Current support & services provided:[facility] Services Coordination
--- OUTSIDE RECORDS SUMMARY | 2024-03-27 08:06 | XMS_ITS | Encounter Summary ---
Author Organization [place] Address [address] [place] [address]. [place] [address] Care Team Providers Care Res Counselor Name Role Phone Logeais, Alda BEST Unavailable Logeais, Alda BEST Primary Care Provider [phone] Shy Marks PA-C Unavailable [phone] Encounter Details Date Type Department Care Team [...] on filedocumented in this encounter Care Teams Res Counselor Relationship Specialty Start Date End Date Alda Hawkins MD [address] [place] [address] PCP - General Internal Medicine 04/30/23 Alda Hawkins MD [address] [place] [address] Assigned PCP 03/23/22 Shy Marks PA-C [address] [place] [address] Assigned Surgical Provider 05/26/23 documented as of this encounter
--- OUTSIDE RECORDS SUMMARY | 2024-03-27 08:06 | XMS_ITS | Clinical Summary ---
Author Organization [facility] Address [address] [place] [address] Care Team Providers Care Engineering Designer Name Role Phone Elsewhere, Pcp Primary Care Provider Unavailabl e Source Comments Patient records contain information from all sites at [facility]. For routine questions regarding patient records, call [phone] during business hours, M-F 8:00 AM - 5:00 PM Central Time. Record requests for emergency care only can be directed to [phone] at any time.[facility] Allergies Active Allergy Reactions Criticality Noted Date [...] MOUTH DAILY 90 tablet 3 01/30/2024 Active Encounters Date Type Department Care Team Description 02/11/2024 Clinical Communication Division of Nephrology and Hypertension in [place], [place] [address] [place] [address] Teri Murphy R.N. 01/30/2024 Refill Division of Nephrology and Hypertension in [place], [place] [address] [place] [address] Eldon Vazquez M.D., Ph.D. Med Refill 12/31/2023 Clinical Communication Division of Nephrology and Hypertension in [place], [place] [address] [place] [address] Alo Pearson R.N. from Last 3 Months Family History Medical [...] often do you attend chur ch or confucianism services? Never 06/23/2022 Do you belong to any clubs o r organizations such as roman catholic groups, unions, fraternal or athletic groups, [...] and heating? Not hard at all 07/26/2023 [facility] of Occupat ional Health - Occupational Stress [...] your living situation today? I have a [facility] place to live 07/26/2023 Education Answer [...] Screening (Annual PHQ-2) 10/08/2023 Mammogram 04/30/2024 04/30/2023, 04/08, 08/17/2020 Creatinine Level (Kidney Function Test) 02/06/2025 02/07/2024, 11/03/2023, 08/01/2023, Additional history exists Potassium Level 02/06/2025 02/07/2024, 07/09, 07/02/2023, Additional history exists Sodium Level 02/06/2025 02/07/2024, 10/09, 08/01/2023, Additional history exists Lipid (Cholesterol) Screening 08/01/2028 [...] TOMOSYNTHESIS Routine 04/30/2023 11:31 AM CDT PATHOLOGY ON AIR ANNOUNCER CYTOLOGY Routine 08/16/2006 2:28 PM BOTANY PROFESSOR from Last 3 Months or Most Recently [...] Vazquez M.D., Ph.D. LAB BLOOD A DD-ON [facility] [address] [place] [address], [facility] [address] [place] [address] * Pathology ON AIR ANNOUNCER Cytology (08/16/2006 2:28 PM BOTANY PROFESSOR) 08/16/2006 2:28 PM BOTANY PROFESSOR 08/16/2006 2:28 PM BOTANY PROFESSOR Narrative [facility] - 08/16/2006 2:28 PM BOTANY PROFESSOR ??08/16/2006 Cytology Gynecological ?([id number]) ? Requested By: ??Catrina Schmitz M.D. ??[phone] ?DIAGNOSIS: ?? A. ??ThinPrep Pap Test Screen (Cervical/Endocervical HPV Reflex): ?Satisfactory for evaluation. ?Negative for intraepithelial lesion or malignancy. ? 08/17/2006 ?HE Jordan (ASCP) Silvina Sanchez M.D. ?[phone] ?? SPECIMEN DESCRIPTION: A. ??ThinPrep Pap Test Screen (Cervical/Endocervical HPV Reflex): ?? Received cloudy specimen in ThinPrep vial. ? Procedure Note 01/01/2018 08/16/2006 Cytology Gynecological ([id number]) Requested By: Catrina Schmitz M.D. [phone] DIAGNOSIS: A. ThinPrep Pap Test Screen (Cervical/Endocervical HPV Reflex): Satisfactory for evaluation. Negative for intraepithelial lesion or malignancy. 08/17/2006 HE Jordan (ASCP) Silvina Sanchez M.D. [phone] SPECIMEN DESCRIPTION: A. ThinPrep Pap Test Screen (Cervical/Endocervical HPV Reflex): Received cloudy specimen in ThinPrep vial. Catrina Schmitz M.D. LAB PAP COPATH ORD ERABLES [facility] [address] from Last 3 Months or Most Recently Relevant to Health Maintenance Care Teams Engineering Designer Relationship Specialty Start Date End Date Elsewhere, Pcp PCP - General Internal Medicine 08/01/23
--- OUTSIDE RECORDS SUMMARY | 2024-03-27 08:06 | XMS_ITS | Encounter Summary ---
Author Organization [facility] Address [address] [place] [address] Care Team Providers Care Hotel Casino Floorperson Name Role Phone Elsewhere, Pcp Primary Care Provider Unavailabl e Encounter Details Date Type Department Care Team (Late st Contact Info) Description 02/11/2024 Clinical Communication Division of Nephrology and Hypertension in [place], [place] [address] [place] [address] Teri Murphy RAdam [address] [place] [address] Social History Tobacco Use Types Packs/Day Years [...] any clubs o r organizations such as zoroastrianism groups, unions, fraternal or athletic groups, or [...] and heating? Not hard at all 07/26/2023 [facility] of Occupat ional Health - Occupational Stress [...] your living situation today? I have a [facility] place to live 07/26/2023 Education Answer Date [...] EXTP COMPLETE METABOLIC PANEL, BLOOD Routine 02/07/2024 documented in this encounter Results * EXT Complete Metabolic Panel, Blood [...] LAB BLOOD NON ADD-ON LOS NOT ASSIGNED documented in this encounter Visit Diagnoses Not on filedocumented in this encounter Care Teams Hotel Casino Floorperson Relationship Specialty Start Date End Date Elsewhere, Pcp PCP - General Internal Medicine 08/01/23 documented as of this encounter
--- OUTSIDE RECORDS SUMMARY | 2024-03-27 08:06 | XMS_ITS ---
Author Organization [facility] Address [address] [place] [address] Care Team Providers Care Account Executive Name Role Phone Unavailable Unavailable Unavailable Surgery Details Not on file Complications Check Surgery Details section. Procedure Estimated Blood Loss Check Surgery Details section. Procedure Findings Check Surgery Details section. Procedure Specimens Taken Check Surgery Details section.
--- NOTE | 2024-03-27 08:15 | CRLHL7_ITS ---
For Patients: As a result of the Century Cures Act, medical imaging exams and procedure reports are released immediately into your electronic medical record. You may view this report before your referring provider. If you have questions, please contact your health care provider. EXAMINATION: MRA HEAD DATE: 03/27/2024. HISTORY: Patient with headaches and polycystic kidney disease. TECHNIQUE: 3D TOF MRA of the head was performed. COMPARISON: None. FINDINGS: There is a probable 1.5mm left posterior communicating artery aneurysm. The intracranial segments of the right internal carotid artery are normal. The anterior communicating artery is seen. The visualized portions of the right middle and anterior cerebral arteries are normal. The visualized portions of the left middle and anterior cerebral arteries are normal. The left vertebral artery is dominant. The visualized intracranial portions of the vertebral arteries are normal. The basilar artery is normal. The right posterior cerebral artery is normal. The left posterior cerebral artery is normal. 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 Further evaluation with a CTA of the head is recommended. Sally Payton M.D. Neurointerventional Radiologist [facility] Pager: Office/Appointments: Answering Service: [facility] Center: [email or web address] Dictated by: Sally Payton MD @ 03/27/2024 14:31:54 (Electronically Signed)
== END 2024-03-27 08:04 | disposition home or self-care (01) ==
LOC: MRI 08:04
PROVIDERS: PCP Physician Assistant Medical; Visit Provider Physician Assistant Medical
DX: R51.9 Headache, unspecified (principal); Q61.3 Polycystic kidney, unspecified
CPT/HCPCS: 70544

== ENCOUNTER 2024-04-14 08:50 | Outpatient (CLI) | payer OTHER, SELFPAY ==
--- NOTE | 2024-04-14 09:00 | CRLHL7_ITS ---
For Patients: As a result of the Century Cures Act, medical imaging exams and procedure reports are released immediately into your electronic medical record. You may view this report before your referring provider. If you have questions, please contact your health care provider. CT ANGIOGRAM HEAD DATE: 04/14/2024 CLINICAL HISTORY: Patient with possible brain aneurysm. TECHNIQUE: Standard helical CT image acquisition through the intracranial circulation following intravenous administration of contrast material with bolus tracking. 2D and 3D MIP images for post-processing were performed and interpreted on an independent workstation and 3D images were permanently archived. COMPARISON: MRA 03/27/2024. FINDINGS: There is no intracranial aneurysm. The findings in the prior MRA correspond to an infundibulum at the origin of the left anterior choroidal artery. There is no proximal intracranial large vessel occlusion. The right internal carotid artery is normal. The right middle cerebral artery and its branches are normal. The right anterior cerebral artery and its branches are normal. The left internal carotid artery is normal. The left middle cerebral artery and its branches are normal. The left anterior cerebral artery and its branches are normal. The anterior communicating artery is well visualized and appears normal. The right vertebral artery and PICA are normal. The left vertebral artery and PICA are normal. The left vertebral artery is dominant. The basilar artery is patent and appears normal. The right posterior cerebral artery is normal. The left posterior cerebral artery is normal. The visualized venous structures are patent. IMPRESSION: No intracranial aneurysm. The findings in the prior MRA correspond to an infundibulum at the origin of the left anterior choroidal artery, a normal variant. Please note that all CT scans at this facility use dose modulation, iterative reconstruction, and/or weight-based dosing when appropriate to reduce radiation dose to as low as reasonably achievable. Dictated by: Sally Payton MD @ 04/14/2024 10:19:32 (Electronically Signed)
== END 2024-04-14 08:51 | disposition home or self-care (01) ==
LOC: CT 08:51
PROVIDERS: PCP Physician Assistant Medical; Visit Provider Physician Assistant Medical
DX: Q61.3 Polycystic kidney, unspecified (principal); R90.89 Other abnormal findings on diagnostic imaging of central nervous system
CPT/HCPCS: 70496; Q9967

== ENCOUNTER 2024-05-16 13:55 | Outpatient (CLI) | payer OTHER, SELFPAY ==
--- OUTSIDE RECORDS SUMMARY | 2024-05-23 11:04 | XMS_ITS | Encounter Summary ---
Author Organization [facility] Address [address] [place] [address] Care Team Providers Care Scrubber System Attendant Name Role Phone Elsewhere, Pcp Primary Care Provider Unavailabl e Reason for Visit * Reason Onset Date Comments [facility]-Pharmacy Change 05/15/2024 Encounter Details Date Type Department Care Team (Latest Contact Info) Description 05/15/2024 Clinical Communication Division of Nephrology and Hypertension in [place], [place] [address] [place] [phone] Eldon Vazquez M.D., Ph.D. [address] [place] [address] [facility]-Pharmacy Change Social History Tobacco Use Types Packs/Day Years [...] often do you attend chur ch or jew services? Never 06/23/2022 Do you belong to any clubs o r organizations such as cheondoism groups, unions, fraternal or athletic groups, or [...] and heating? Not hard at all 07/26/2023 [facility] of Occupat ional Health - Occupational [...] living situation today? I have a [facility] place to live 07/26/2023 Education Answer Date [...] as of this encounter Miscellaneous Notes * Addendum Note - Celestine Pearson RPetty. - 05/16/2024 11:06 AM CDTAddended by: CELESTINE PEARSON on: 05/16/2024 11:06 AM Modules accepted: Orders documented in this encounter Plan of Treatment Not on file documented as of this encounter Visit Diagnoses Not on filedocumented in this encounter Care Teams Scrubber System Attendant Relationship Specialty Start Date End Date Elsewhere, Pcp PCP - General Internal Medicine 08/01/23 documented as of this encounter
--- OUTSIDE RECORDS SUMMARY | 2024-05-23 11:04 | XMS_ITS ---
Author Organization [facility] Address [address] [place] [address] Care Team Providers Care Body Finisher Name Role Phone Unavailable Unavailable Unavailable Surgery Details Not on file Complications Check Surgery Details section. Procedure Estimated Blood Loss Check Surgery Details section. Procedure Findings Check Surgery Details section. Procedure Specimens Taken Check Surgery Details section.
--- OUTSIDE RECORDS SUMMARY | 2024-05-23 11:04 | XMS_ITS | Clinical Summary ---
[facility] Address [address] [place] [address] Care Team Providers Care Sr. Payroll Manager Name Role Phone Rosemarie Portillo APRN, CNP Primary Care Provid er Source Comments You are receiving this document as you are listed as the primary care provider,follow-up provider, or the patient has been referred to you for consultation.This is in compliance with the Medicare and[facility] EHR Incentive Program,which states Providers who transition their patient to another setting of careor provider of care or refers their patient to another provider of care shouldprovide summary care record for each transition of care or referral. [facility] Allergies No known active allergies Medications Medication [...] 36.1 ??C (97 ??F) 11/27/2013 9:56 AM STAFF OCCUPATIONAL THERAPIST Respiratory Rate 16 10/21/2002 4:50 PM STAFF OCCUPATIONAL THERAPIST Oxygen Saturation - - Inhaled Oxygen Concentration - - Weight 69.4 kg (153 lb) 08/09/2016 8:25 AM CDT Height 171.5 cm (5' 7.5) 11/27/2013 9:56 AM STAFF OCCUPATIONAL THERAPIST Body Mass Index 23.61 11/27/2013 9:56 AM STAFF OCCUPATIONAL THERAPIST Plan of Treatment Health Maintenance Due Date Last Done Comments Cervical Cancer Screening Due 1980 Hep C Screening (Preventive Services) 1980 Mammogram 1980 HIV Screening (Preventive Services) 1996 Adult Preventive Visit 1998 HepB (1) 12/21/1999 DTaP/Tdap/Td (2 - Tdap) 07/21/2020 07/21/2010 COVID-19 Vaccine (2 - 2022-2 4 season) 2023 01/13/2021 Influenza (#1) 2024 07/24/2011, 07/21/2010 Zoster/Shingles (1 of 2) 2030 [...] age to complete this topic Care Teams Sr. Payroll Manager Relationship Specialty Start Date End Date Rosemarie Portillo, SUPERVISOR LANDSCAPE, FLIGHT DATA TECHNICIAN [address] [place] [address] [facility] - General 06/08/16
--- OUTSIDE RECORDS SUMMARY | 2024-05-23 11:04 | XMS_ITS | Encounter Summary ---
Author Organization [place] Address [address] [place] [address]. [place] [address] Care Team Providers Care Cut Lace Machine Operator Name Role Phone Logeais, Alda BEST Unavailable Logeais, Alda BEST Primary Care Provider [phone] Shy Marks PA-C Unavailable Lyssa Delcid MD Unavailable [phone] Reason for Visit * Reason Onset Date Comments Call Back 08/01/2023 Referral 08/01/2023 Encounter Details Date Type Department Care Team (Late st Contact Info) Description 08/01/2023 Telephone [facility] [address] [place] [address] None Call Back; Referral Social [...] on filedocumented in this encounter Care Teams Cut Lace Machine Operator Relationship Specialty Start Date End Date Alda Hawkins MD [address] [place] [address] PCP - General Internal Medicine 04/30/23 Alda Hawkins MD [address] [place] [address] Assigned PCP 03/23/22 Shy Marks PA-C [address] [place] [address] Assigned Surgical Provider 05/26/23 Lyssa Delcid MD [address] [address] [place] [address] Assigned Endocrinology Provider 01/29/24 documented as of this encounter
--- OUTSIDE RECORDS SUMMARY | 2024-05-23 11:04 | XMS_ITS ---
Author Organization [facility] Address [address] [place] [address] Care Team Providers Care Interior Assemblies Installer Name Role Phone Elsewhere, Pcp Primary Care Provider Unavailabl e Polycystic Kidney Disease (PKD) Status:Enrolled (Active) Start date:06/03/2021 Enrollment date:06/03/2021 Current support & services provided:[facility]ill[facility] Coordination
--- OUTSIDE RECORDS SUMMARY | 2024-05-23 11:04 | XMS_ITS | Encounter Summary ---
Author Organization [facility] Address [address] [place] [address] Care Team Providers Care Cribbing Setter Name Role Phone Elsewhere, Pcp Primary Care Provider Unavailabl e Encounter Details Date Type Department Care Team (Late st Contact Info) Description 05/15/2024 Clinical Communication Division of Nephrology and Hypertension in [place], [place] [address] [place] [address] Alo Pearson RAdam [address] [place] [address] Social History Tobacco Use Types Packs/Day Years [...] often do you attend chur ch or hinduism services? Never 06/23/2022 Do you belong to any clubs o r organizations such as quaker groups, unions, fraternal or athletic groups, or [...] and heating? Not hard at all 07/26/2023 [facility] of Occupat ional Health - Occupational Stress [...] your living situation today? I have a [facility] place to live 07/26/2023 Education [...] Procedure Name Priority Date/Time Associated Diagnosis Comments EXTM ALANINE AMINOTRANSFERASE (ALT), S/P Routine 05/16/2024 EXTM ASPARTATE AMINOTRANSFERASE (AST), S/P Routine 05/16/2024 EXTM ALKALINE PHOSPHATASE, S/P Routine 05/16/2024 EXTM BILIRUBIN, TOT, S/P Routine 05/16/2024 EXTP BASIC METABOLIC PANEL, BLOOD Routine 05/16/2024 documented in this encounter Results * EXT Basic Metabolic Panel, Blood (05/16/2024) EXT Sodium 138 135 - 149 [facility] EXT Potassium 4.2 3.6 - 5.1 [facility] EXT CO2 26 20 - 32 [facility] EXT BUN (Blood Urea Nitrogen) 11 5 - 24 [facility] EXT Creatinine 1.0 0.5 - 1.5 [facility] EXT Estimated GFR (eGFR) 72 [facility] Blood (Blood, Venous) 05/16/2024 Historical Provider LAB BLOOD NON ADD-ON [facility] [address] [phone] * EXT AST (Aspartate Aminotransferase) (05/16/2024) EXT AST 24 12 - 35 [facility] Blood (Blood, Venous) 05/16/2024 Historical Provider LAB BLOOD ADD-ON Performing Organization Address City/[facility]/ZIP Co de Phone Number [facility] [address] [phone] * EXT ALT (Alanine Aminotransferase) (05/16/2024) EXT ALT 13 4 - 35 [facility] Blood (Blood, Venous) 05/16/2024 Historical Provider LAB BLOOD ADD-ON Performing Organization Address City/[facility]/ZIP Co de Phone Number [facility] [address] [phone] * EXT Alkaline Phosphatase (05/16/2024) EXT Alkaline Phosphatase 45 40 - 150 [facility] Blood (Blood, Venous) 05/16/2024 Historical Provider LAB BLOOD ADD-ON [facility] [address] [phone] * EXT Bilirubin, Total (05/16/2024) EXT Bilirubin, Total 0.7 0.1 - 1.5 [facility] Blood (Blood, Venous) 05/16/2024 Historical Provider LAB BLOOD ADD-ON [facility] [address] [place] [address] documented in this encounter Visit Diagnoses Not on filedocumented in this encounter Care Teams Cribbing Setter Relationship Specialty Start Date End Date Elsewhere, Pcp PCP - General Internal Medicine 08/01/23 documented as of this encounter
--- OUTSIDE RECORDS SUMMARY | 2024-05-23 11:04 | XMS_ITS | Encounter Summary ---
Author Organization [place] Address [address] [place] [address]. [place] [address] Care Team Providers Care Handle Bender Name Role Phone Logeais, Alda BEST Unavailable Logeais, Alda BEST Primary Care Provider [phone] Shy Marks PA-C Unavailable [phone] Lyssa Delcid MD Unavailable [phone] Encounter Details Date Type Department Care Team (Late st Contact Info) Description 08/07/2023 [facility] [address] [address] [facility] Social History Tobacco Use Types Packs/Day Years [...] on filedocumented in this encounter Care Teams Handle Bender Relationship Specialty Start Date End Date Alda Hawkins MD [address] [facility] [address] [place] [address] PCP - General Internal Medicine 04/30/23 Alda Hawkins MD [address] [address] Assigned PCP 03/23/22 Shy Marks PA-C [address] [place] [address] Assigned Surgical Provider 05/26/23 Lyssa Delcid MD [address] [place] [address] [place] [address] Assigned Endocrinology Provider 01/29/24 documented as of this encounter
--- OUTSIDE RECORDS SUMMARY | 2024-05-23 11:04 | XMS_ITS | Referral Summary ---
Author Organization [facility] Address [address] [place] [address] Care Team Providers Care Beverage Inspection Machine Tender Name Role Phone Elsewhere, Pcp Primary Care Provider Unavailabl e Source Comments Patient records contain information from all sites at [facility]. For routine questions regarding patient records, call [phone] during business hours, M-F 8:00 AM - 5:00 PM Central Time. Record requests for emergency care only can be directed to [phone] at any time.[facility] Encounters Date Type Department Care Team Description 05/15/2024 Clinical Communication Division of Nephrology and Hypertension in [place], [place] [address] [place] [address] Alo Pearson, RAdam 05/15/2024 Clinical Communication Division of Nephrology and Hypertension in [place], [place] [address] [place] [address] Eldon Vazquez M.D., Ph.D. [facility] Change from Last 3 Months Allergies Active Allergy [...] Device by intrauterine route continuously. 12/18/2018 Active candesartan (ATACAND) 8 mg tabletIndications: Other Secondary Hypertension TAKE 1 TABLET(8 MG) BY MOUTH DAILY 90 tablet 3 01/30/2024 Active tolvaptan, polycys kidney dis, (Jynarque) 30 mg (AM)/ 15 mg (PM) tablets, sequential tablet Take 30 mg by mouth every morning AND 15 mg daily. Take 15 mg 8 hours after morning dosage. 56 tablet 11 05/16/2024 Active tolvaptan, polycys kidney dis, (Jynarque) 30 mg (AM)/ 15 mg (PM) tablets, sequential Take 30 mg by mouth every morning AND 15 mg daily. Take 15 mg 8 hours after morning dosage. 56 tablet 11 12/31/2023 Discontinue d(Reorder) Social History Tobacco Use Types Packs/Day Years [...] How often do you attend chur or tenriism services? Never 06/23/2022 Do you belong to any clubs o r organizations such as christianity groups, unions, fraternal or athletic groups, or [...] and heating? Not hard at all 07/26/2023 [facility] - [...] your living situation today? 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 Blood (Blood, Venous) 05/16/2024 Historical Provider LAB BLOOD ADD-ON Performing Organization Address [facility]/ZIP Co de Phone Number [facility] [address] [phone] * EXT AST (Aspartate Aminotransferase) (05/16/2024) Pathologist [facility] [place] EXT AST 24 12 - 35 [facility] Blood (Blood, Venous) 05/16/2024 Historical Provider LAB BLOOD ADD-ON Performing Organization Address [facility] de Phone Number [facility] [address] [place] [address] * EXT Alkaline Phosphatase (05/16/2024) [facility] EXT Alkaline Phosphatase 45 40 - 150 [facility] Blood (Blood, Venous) 05/16/2024 Historical Provider LAB BLOOD ADD-ON Performing Organization Address [facility] Co de Phone Number [facility] [address] [phone] * EXT Bilirubin, Total (05/16/2024) Pathologist [facility] EXT Bilirubin, Total 0.7 0.1 - 1.5 [facility] Blood (Blood, Venous) 05/16/2024 Historical Provider LAB BLOOD ADD-ON Performing Organization Address [facility]/ZIP Co de Phone Number [facility] [address] [phone] * EXT Basic Metabolic Panel, Blood (05/16/2024) EXT Sodium 138 135 - 149 [facility] EXT Potassium 4.2 3.6 - 5.1 [facility] EXT CO2 26 20 - 32 [facility] EXT BUN (Blood Urea Nitrogen) 11 5 - 24 [facility] EXT Creatinine 1.0 0.5 - 1.5 [facility] EXT Estimated GFR (eGFR) 72 [facility] Blood (Blood, Venous) 05/16/2024 Historical Provider LAB BLOOD NON ADD-ON [facility] [address] [place] [address], [facility] [phone] * Lipid Panel (08/01/2023 9:46 AM CDT) [...] Vazquez M.D., Ph.D. LAB BLOOD A DD-ON [facility] [address] [place] [address], [facility] [address] [place] [address] * Pathology BUILDINGS AND GROUNDS DIRECTOR Cytology (08/16/2006 2:28 PM DAY HABILITATION SPECIALIST) 08/16/2006 2:28 PM DAY HABILITATION SPECIALIST 08/16/2006 2:28 PM DAY HABILITATION SPECIALIST Narrative [facility] - 08/16/2006 2:28 PM DAY HABILITATION SPECIALIST ??08/16/2006 Cytology Gynecological ?([id number]) ? Requested By: ??Catrina Schmitz M.D. ??[phone] ?DIAGNOSIS: ?? A. ??ThinPrep Pap Test Screen (Cervical/Endocervical HPV Reflex): ?Satisfactory for evaluation. ?Negative for intraepithelial lesion or malignancy. ? 08/17/2006 ?HE Jordan (ASCP) Silvina Sanchez M.D. ?[phone] ?? SPECIMEN DESCRIPTION: A. ??ThinPrep Pap Test Screen (Cervical/Endocervical HPV Reflex): ?? Received cloudy specimen in ThinPrep vial. ? Procedure Note 01/01/2018 08/16/2006 Cytology Gynecological ([id number]) Requested By: Catrina Schmitz M.D. [phone] DIAGNOSIS: A. ThinPrep Pap Test Screen (Cervical/Endocervical HPV Reflex): Satisfactory for evaluation. Negative for intraepithelial lesion or malignancy. 08/17/2006 HE Jordan (ASCP) Silvina Sanchez M.D. [phone] SPECIMEN DESCRIPTION: A. ThinPrep Pap Test Screen (Cervical/Endocervical HPV Reflex): Received cloudy specimen in ThinPrep vial. Catrina Schmitz M.D. LAB PAP COPATH ORD [facility] [address] from Last 3 Months or Most Recently Relevant to Health Maintenance Care Teams Beverage Inspection Machine Tender Relationship Specialty Start Date End Date Elsewhere, Pcp PCP - General Internal Medicine 08/01/23
--- OUTSIDE RECORDS SUMMARY | 2024-05-23 11:04 | XMS_ITS | Encounter Summary ---
Author Organization [facility] Address [address] [place] [address] Care Team Providers Care Sawmill Or Timber Yard Worker Name Role Phone Elsewhere, Pcp Primary Care Provider Unavailabl e Encounter Details Date Type Department Care Team (Late st Contact Info) Description 02/11/2024 Clinical Communication Division of Nephrology and Hypertension in [place], [place] [address] [place] [address] Teri Murphy R.N. [address] [place] [address] Social History Tobacco Use Types Packs/Day Years [...] often do you attend chur ch or orthodox services? Never 06/23/2022 Do you belong to [...] heating? Not hard at all 07/26/2023 [facility] - Occupational [...] your living situation today? I have a [facility] place to live 07/26/2023 [...] on filedocumented in this encounter Care Teams Sawmill Or Timber Yard Worker Relationship Specialty Start Date End Date Elsewhere, Pcp PCP - General Internal Medicine 08/01/23 documented as of this encounter
--- OUTSIDE RECORDS SUMMARY | 2024-05-23 11:04 | XMS_ITS | Encounter Summary ---
Author Organization [facility] Address [address] [place] [address]. [place] [address] Care Team Providers Care Garage Door Hanger Name Role Phone LogeaisAlda MD Unavailable Logeais, Alda BEST Primary Care Provider [phone] Shy Marks PA-C Unavailable [phone] Lyssa Delcid MD Unavailable [phone] Reason for Referral * Consultation (Routine: Next available opening) - Pending Review Specialty Diagnoses / Procedures Referred By Brayan buenrostro Referred To Contact Endocrinology, Diabetes, and Metabolism Diagnoses Family history of thyroid disease in mother Family history thyroid disease in brother Family history of thyroid disease in grandmother Fatigue, unspecified type Darien Duval MD [address] [place] [address] Referral ID Status Reason Start Date Expiration Date V isits Requested Visits Authorized [id number] Pending Review 07/31/2023 07/30/2024 1 1 Question Answer Reason for Referral: Thyroid Scheduling Instructions: [employer] will call you to coordinate your care as prescribed by the provider. If you don? t hear from a sales representative publications within 2 business days, please call [phone]. Additional Information: 42-y.o. woman requests evaluation of [...] plan with any benefit or coverage questions. [employer] [facility] will call you to coordinate your care as prescribed by the provider. If you don? t hear from a sales representative publications within 2 business days, please call [phone]. Encounter Details Date Type Department Care Team (Late st Contact Info) Description 07/31/2023 MyC Medical Advice [facility] [address] [facility] [address] 5th [place] [address] Darien Duval MD [address] [facility] [address] [place] [address] Family history of thyroid disease [...] Associated Diagnoses Orde r Schedule Adult Endocrinology Brick Stacker Referral Referral Routine: Next available opening Family [...] type documented in this encounter Care Teams Garage Door Hanger Relationship Specialty Start Date End Date Alda Hawkins MD [address] [facility] [address] [place] [address] PCP - General Internal Medicine 04/30/23 Alda Hawkins MD [address] [address] Assigned PCP 03/23/22 Shy Marks PA-C [address] [place] [address] Assigned Surgical Provider 05/26/23 Lyssa Delcid MD [address] [facility] [address] [place] [address] Assigned Endocrinology Provider 01/29/24 documented as of this encounter
--- OUTSIDE RECORDS SUMMARY | 2024-05-23 11:04 | XMS_ITS | Encounter Summary ---
Author Organization [facility] Address [address] [place] [address]. [place] [address] Care Team Providers Care Digital Production Operator Name Role Phone Logeais, Alda BEST Unavailable Logeais, Alda BEST Primary Care Provider [phone] Shy Marks PA-C Unavailable [phone] Lyssa Delcid MD Unavailable [phone] Encounter Details Date Type Department Care Team (Late st Contact Info) Description 08/03/2023 [facility] [address] [address] [facility] Social History Tobacco Use Types [...] on filedocumented in this encounter Care Teams Digital Production Operator Relationship Specialty Start Date End Date Alda Hawkins MD [address] [facility] [address] [place] [address] PCP - General Internal Medicine 04/30/23 Alda Hawkins MD [address] [address] Assigned PCP 03/23/22 Shy Marks PA-C [address] [place] [address] Assigned Surgical Provider 05/26/23 Lyssa Delcid MD [address] [facility] [address] [place] [address] Assigned Endocrinology Provider 01/29/24 documented as of this encounter
--- OUTSIDE RECORDS SUMMARY | 2024-05-23 11:04 | XMS_ITS | Clinical Summary ---
Author Organization [facility] Address [address] [place] [address] Care Team Providers Care Home Organizer Name Role Phone Elsewhere, Pcp Primary Care Provider Unavailabl e Source Comments Patient records contain information from all sites at [facility]. For routine questions regarding patient records, call [phone] during business hours, M-F 8:00 AM - 5:00 PM Central Time. Record requests for emergency care only can be directed to [phone] at any time.[facility] Allergies Active Allergy Reactions Criticality Noted Date [...] after morning dosage. 56 tablet 11 12/31/2023 4 Discontinue d(Reorder) Encounters Date Type Department Care Team Description 05/15/2024 Clinical Communication Division of Nephrology and Hypertension in [place], [place] [address] [place] [address] Alo Pearson R.N. 05/15/2024 Clinical Communication Division of Nephrology and Hypertension in [place], [place] [address] [place] [address] Eldon Vazquez M.D., Ph.D. [facility] Change from Last 3 Months Family History Medical [...] often do you attend chur ch or uatsdin services? Never 06/23/2022 Do you belong to any clubs o r organizations such as yazidism groups, unions, fraternal or athletic groups, or [...] and heating? Not hard at all 07/26/2023 [facility] [...] your living situation today? I have a [facility] place to live 07/26/2023 Education Answer [...] PHQ-2) 10/08/2023 Mammogram 04/30/2024 04/30/2023, 04/08, 08/17/2020 Influenza Vaccine (#1) 2024 , 08/05/2020, 07/24/2011, Additional history exists Creatinine Level (Kidney Function Test) 05/16/2025 05/16/2024, 02/07/2024, 11/03/2023, Additional history exists Potassium Level 05/16/2025 05/16/2024, 05/0 11/2023, 08/01/2023, Additional history exists Sodium Level 05/16/2025 05/16/2024, 05/0 11/2023, 11/03/2023, Additional history exists Lipid (Cholesterol) Screening 08/01/2028 08/01/2023, 04/30/2023, 04/12/2022 DTaP,Tdap,and Td Vaccines (3 - Td or Tdap) 04/12/2032 04/12/2022, 07/21/2010 HPV Vaccines Aged Out No longer eligi [...] Kidney Autosomal Dominant Other Secondary Hypertension PATHOLOGY PIPELINES MANAGER CYTOLOGY Routine 6 2:28 PM DRAW OFF WORKER from Last 3 Months or Most Recently Relevant to Health Maintenance Results * EXT ALT (Alanine Aminotransferase) (05/16/2024) EXT ALT 13 4 - 35 [facility] Blood (Blood, Venous) 05/16/2024 Historical Provider LAB BLOOD ADD-ON Performing Organization Address City/[facility]/ZIP Co de Phone Number [facility] [address] [place], [place] [id number] [place] [address] * EXT AST (Aspartate Aminotransferase) (05/16/2024) EXT AST 24 12 - 35 [facility] Blood (Blood, Venous) 05/16/2024 Historical Provider LAB BLOOD ADD-ON Performing Organization Address [facility] Co de Phone Number [facility] [address] [place], [place] [address] [phone] * EXT Alkaline Phosphatase (05/16/2024) EXT Alkaline Phosphatase 45 40 - 150 [facility] Blood (Blood, Venous) 05/16/2024 Historical Provider LAB BLOOD ADD-ON Performing Organization Address [facility] Co de Phone Number [facility] [address] [place], [place] [address] [phone] * EXT Bilirubin, Total (05/16/2024) Pathologist [facility] EXT Bilirubin, Total 0.7 0.1 - 1.5 [facility] Blood (Blood, Venous) 05/16/2024 Historical Provider LAB BLOOD ADD-ON Performing Organization Address [facility]/ZIP Co de Phone Number [facility] [address] [place] [address], [facility] [phone] * EXT Basic Metabolic Panel, Blood (05/16/2024) EXT Sodium 138 135 - 149 [facility] EXT Potassium 4.2 3.6 - 5.1 [facility] EXT CO2 26 20 - 32 [facility] EXT BUN (Blood Urea Nitrogen) 11 5 - 24 [facility] EXT Creatinine 1.0 0.5 - 1.5 [facility] EXT Estimated GFR (eGFR) 72 [facility] Blood (Blood, Venous) 05/16/2024 Historical Provider LAB BLOOD NON ADD-ON [facility] [address] [phone] * Lipid Panel (08/01/2023 9:46 AM CDT) [...] Vazquez M.D., Ph.D. LAB BLOOD A DD-ON [facility] [place] [address] [place] [address], [facility] DTL [facility] [address] [place] [address] * Pathology PIPELINES MANAGER Cytology (08/16/2006 2:28 PM DRAW OFF WORKER) 08/16/2006 2:28 PM DRAW OFF WORKER 08/16/2006 2:28 PM DRAW OFF WORKER Narrative [facility] - 08/16/2006 2:28 PM DRAW OFF WORKER ??08/16/2006 Cytology Gynecological ?([id number]) ? Requested By: ??Catrina Schmitz M.D. ??[phone] ?DIAGNOSIS: ?? A. ??ThinPrep Pap Test Screen (Cervical/Endocervical HPV Reflex): ?Satisfactory for evaluation. ?Negative for intraepithelial lesion or malignancy. ? 08/17/2006 ?HE Jordan (ASCP) Silvina Sanchez M.D. ?[phone] ?? SPECIMEN DESCRIPTION: A. ??ThinPrep Pap Test Screen (Cervical/Endocervical HPV Reflex): ?? Received cloudy specimen in ThinPrep vial. ? Procedure Note 01/01/2018 08/16/2006 Cytology Gynecological ([id number]) Requested By: Catrina Schmitz M.D. [phone] DIAGNOSIS: A. ThinPrep Pap Test Screen (Cervical/Endocervical HPV Reflex): Satisfactory for evaluation. Negative for intraepithelial lesion or malignancy. 08/17/2006 HE Jordan (ASCP) Silvina Sanchez M.D. [phone] SPECIMEN DESCRIPTION: A. ThinPrep Pap Test Screen (Cervical/Endocervical HPV Reflex): Received cloudy specimen in ThinPrep vial. Catrina Schmitz M.D. LAB PAP COPATH ORD ERABLES [facility] [place] [address] from Last 3 Months or Most Recently Relevant to Health Maintenance Care Teams Home Organizer Relationship Specialty Start Date End Date Elsewhere, Pcp PCP - General Internal Medicine 08/01/23
--- OUTSIDE RECORDS SUMMARY | 2024-05-23 11:04 | XMS_ITS | Encounter Summary ---
Author Organization [facility] Address [address] [place] [address]. [place] [address] Care Team Providers Care Small Wind Energy Installer Name Role Phone LogeaAlda martinez MD Unavailable Matthew Ayala OD Unavailable [phone] Serafin Mason MD Unavailable [phone] Matthew Ayala OD Unavailable [phone] LogeaAlda martinez MD Primary Care Provider [phone] Shy Marks PA-C Unavailable [phone] Lyssa Delcid MD Unavailable [phone] Encounter Details Date Type Department Care Team (Late st Contact Info) Description 04/12/2022 [facility] Medical Advice [facility] [address] [place] [address] [address] Maza, RD [address] [place] [address] Social History Tobacco Use Types [...] on filedocumented in this encounter Care Teams Small Wind Energy Installer Relationship Specialty Start Date End Date Alda Hawkins MD [address] [place] [id number] PCP - General Internal Medicine 04/30/23 Alda Hawkins MD [address] [place] [address] 718005 Assigned PCP 03/23/22 Matthew Ayala OD [address] [place] [address] Assigned Surgical Provider 04/15/22 Serafin Mason MD [address] [address] Assigned Surgical Provider 02/03/2302/09/23 Matthew Ayala OD 9 [facility] [address] [place] [address] Assigned Surgical Provider 02/10/23 Shy Marks PA-C [address] [place] [address] Assigned Surgical Provider 05/26/23 Lyssa Declid MD [address] [place] [address] Assigned Endocrinology Provider 01/29/24 documented as of this encounter
--- OUTSIDE RECORDS SUMMARY | 2024-05-23 11:04 | XMS_ITS | Clinical Summary ---
Author Organization [place] Address [address] [place] [address] Care Team Providers Care Scene And Lighting Design Lecturer Name Role Phone Logeais, Alda BEST Unavailable Logeais, Alda BEST Primary Care Provider [phone] Shy Marks PA-C Unavailable Lyssa Delcid MD Unavailable [phone] Allergies Active Allergy Reactions Criticality Noted Date [...] 2023 04/30/2023, 04/30/2023, 04/12/2022, Additional history exists INFLUENZA VACCINE (#1) 2024 , 08/05/2020, 07/24/2011, Additional history exists YEARLY PREVENTIVE VISIT 06/25/2024 06/25/20 23, 04/30/2023, 04/12/2022, Additional history exists MAMMO SCREENING 04/30/2025 04/30/2023, 06/0 04/2021, 03/14/2021, Additional history exists GLUCOSE 04/30/2026 04/30/2023, 07/0 03/2022, 08/05/2020 LIPID 04/30/2028 04/30/2023, 07/0 03/2022, 08/05/2020 DTAP/TDAP/TD IMMUNIZATION (3 - Td or Tdap) 04/12/2032 04/12/2022, 07/21/2010 HEPATITIS C SCREENING Completed 04/30/2023 HIV SCREENING Completed 04/30/2023, 04/12/2022 HPV IMMUNIZATION Aged Out No longer e [...] preventative adult health care examination ABSTRACT PAP ([facility] EXTERNAL RESULT) Routine 01/04/2018 9:19 AM CDT ABSTRACT HPV ([facility] EXTERNAL RESULT) Routine 01/04/2018 9:19 AM CDT from Last 3 Months or Most Recently Relevant to Health Maintenance Results * MA Screening Bilateral w/ Jadiel [...] Y ORDERABLES * HIV Antigen Antibody Combo [[id number]] (04/30/2023 7:50 AM CDT) HIV Antigen Antibody Combo Nonreactive Nonreactive 04/30/2023 12:41 PM CDT [facility]/EN DO Comment:HIV-1 p24 Ag & HIV-1 /HIV-2 Ab Not Detected Blood STRUCTURE OF RIGHT UPPER LIMB / Unknown Venipuncture / Unknown 04/30/2023 7:50 AM CDT 04/30/2023 8:00 AM CDT Darien Duval MD LAB - BLOOD OR DERABLES [facility]PROT/ENDO [facility]/Prot/Endo [address] [facility], [address] [place] [address] * Lipid panel reflex to direct LDL Fasting (04/30/2023 7:50 AM CDT) Cholesterol 168 <200 mg/dL 04/30/2023 8:24 AM CDT [facility] Triglycerides 62 <150 mg/dL 04/30/2023 8:24 AM CDT [facility] Direct Measure HDL 64 >=50 mg/dL 2022 8:24 AM CDT [facility] LDL Cholesterol Calculated 92 <=100 mg/dL 04/30/2023 8:24 AM CDT [facility] Non HDL Cholesterol 104 <130 mg/dL 04/30/2023 8:24 AM CDT [facility] Blood STRUCTURE OF RIGHT UPPER LIMB / Unknown Venipuncture / Unknown 04/30/2023 7:50 AM CDT 04/30/2023 8:00 AM CDT Narrative [facility] [...] - BLOOD OR DERABLES Performing Organization Address [facility] Co de Phone Number [facility] - [address] 1st [place] [address] * Hepatitis C antibody (04/30/2023 7:50 AM [...] [facility] [address], [address] [place] [address], [facility] [phone] * Glucose (04/30/2023 7:50 AM CDT) Glucose 91 70 - 99 mg/dL 04/30/2023 8:24 AM CDT [facility] Patient Fasting > 8hrs? Unknown 04/30/2023 8:24 AM CDT [facility] Blood STRUCTURE OF RIGHT UPPER LIMB / Unknown Venipuncture / Unknown 04/30/2023 7:50 AM CDT 04/30/2023 8:00 AM CDT Darien Duvla MD LAB - BLOOD OR DERABLES [facility] [place] [address] [place] [address] 1st [place] [address] * Abstract HPV ([facility]IM External Result) (01/04/2018 9:19 AM CDT) HPV Abstract See Scanned Document [facility] 01/04/2018 9:19 AM CDT Narrative [facility] - 01/04/2018 9:19 AM CDT [facility] - Lab Results Provider Outside LAB - HIM EXTERNAL R ESULT [facility] [address] [place] [address], [facility] [phone] * Abstract PAP (HIM External Result) (01/04/2018 9:19 AM CDT) PAP-ABSTRACT See Scanned Document [facility] 01/04/2018 9:19 AM CDT Narrative [facility] - 01/04/2018 9:19 AM CDT PAP SMEAR/HPV [facility] - Lab Results Provider Outside LAB - HIM EXTERNAL R ESULT [facility] [address] [place] [address], [facility] [phone] from Last 3 Months or Most Recently Relevant to Health Maintenance Care Teams Scene And Lighting Design Lecturer Relationship Specialty Start Date End Date Alda Hawkins MD [address] [phone] PCP - General Internal Medicine 04/30/23 Alda Hawkins MD [address] [place] [id number] Assigned PCP 03/23/22 Shy Marks PA-C [address] [place] [address] Assigned Surgical Provider 05/26/23 Lyssa Delcid MD [address] [place] [address] Assigned Endocrinology Provider 01/29/24
--- OUTSIDE RECORDS SUMMARY | 2024-05-23 11:04 | XMS_ITS | Referral Summary ---
Author Organization [place] Address [address] [facility] [place] [address] Care Team Providers Care Mammography Technician Name Role Phone Logeais, Alda BEST Unavailable Logeais, Alda BEST Primary Care Provider [phone] Shy Marks PA-C Unavailable Lyssa Delcid MD Unavailable [phone] Allergies Active Allergy Reactions Criticality Noted Date [...] preventative adult health care examination ABSTRACT PAP ([facility] EXTERNAL RESULT) Routine 01/04/2018 9:19 AM CDT ABSTRACT HPV ([facility] EXTERNAL RESULT) Routine 01/04/2018 9:19 AM [...] Y ORDERABLES * HIV Antigen Antibody Combo [[id number]] (04/30/2023 7:50 AM CDT) HIV Antigen Antibody Combo Nonreactive Nonreactive 04/30/2023 12:41 PM CDT SPECIALTY CORE/PROT/EN DO Comment:HIV-1 p24 Ag & HIV-1 /HIV-2 Ab Not Detected Blood STRUCTURE OF RIGHT UPPER LIMB / Unknown Venipuncture / Unknown 04/30/2023 7:50 AM CDT 04/30/2023 8:00 AM CDT Darien Duval MD LAB - BLOOD OR DERABLES [facility]/PROT/ENDO [facility]/Prot/Endo [address] [facility], Room [address] [phone] * Lipid panel reflex to direct LDL [...] [facility] [place] [facility] [place] [address] [place] [address] 1st [place] [address] * Hepatitis C antibody (04/30/2023 7:50 AM [...] [facility]/PROT/ENDO [facility]/Prot/Endo [address], [address] [phone] * Glucose (04/30/2023 7:50 AM CDT) Glucose [...] [facility] [place] [facility] [place] - [address] 1st [place] [address] * Abstract HPV (H[facility] External Result) (01/04/2018 9:19 AM CDT) HPV Abstract See Scanned Document [facility] 01/04/2018 9:19 AM CDT Narrative [facility] - 01/04/2018 9:19 AM CDT PAP SMEAR/HPV [facility] - Lab Results Provider Outside LAB - HIM EXTERNAL R ESULT [facility] [address] [place], [place] [id number] [place] [address] * Abstract PAP (HIM External Result) (01/04/2018 9:19 AM CDT) PAP-ABSTRACT See Scanned Document [facility] 01/04/2018 9:19 AM CDT Narrative [facility] - 01/04/2018 9:19 AM CDT PAP SMEAR/HPV [facility] - Lab Results Provider Outside LAB - HIM EXTERNAL R ESULT [facility] [address] [facility] [place] [address], [facility] [phone] from Last 3 Months or Most Recently Relevant to Health Maintenance Care Teams Mammography Technician Relationship Specialty Start Date End Date Alda Hawkins MD [address] [place] [phone] PCP - General Internal Medicine 04/30/23 Alda Hawkins MD [address] [place] [phone] Assigned PCP 03/23/22 Shy Marks PA-C [address] [place] [address] Assigned Surgical Provider 05/26/23 Lyssa Delcid MD [address] [place] [address] Assigned Endocrinology Provider 01/29/24
--- OUTSIDE RECORDS SUMMARY | 2024-05-23 11:04 | XMS_ITS | Encounter Summary ---
Author Organization [place] Address [address] [place] [address] Care Team Providers Care Special Education Inclusion Teacher Name Role Phone LogeaAlda martinez MD Unavailable Matthew Ayala OD Unavailable [phone] LogeaisAlda MD Primary Care Provider [phone] Shy Marks PA-C Unavailable Lyssa Delcid MD Unavailable [phone] Encounter Details Date Type Department Care Team (Late st Contact Info) Description 04/30/2023 MyC Medical Advice [facility] [address] [address] [address], [address] [place] [address] Social History Tobacco Use Types [...] on filedocumented in this encounter Care Teams Special Education Inclusion Teacher Relationship Specialty Start Date End Date Alda Hawkins MD [address] [place] [address] PCP - General Internal Medicine 04/30/23 Alda Hawkins MD [address] [place] [address] Assigned PCP 03/23/22 Matthew Ayala OD [address] [place] [phone] Assigned Surgical Provider 02/10/23 Shy Marks PA-C [address] [place] [address] Assigned Surgical Provider 05/26/23 Lyssa Delcid MD [address] [place] [address] Assigned Endocrinology Provider 01/29/24 documented as of this encounter
== END 2024-05-16 13:56 | disposition home or self-care (01) ==
LOC: NFLDREF 05-23 11:01
PROVIDERS: PCP Physician Assistant Medical; Referring Provider Physician Assistant Medical
DX: Z13.220 Encounter for screening for lipoid disorders (principal); Z13.29 Encounter for screening for other suspected endocrine disorder
CPT/HCPCS: 80048; 80061; 84443

== ENCOUNTER 2024-11-20 10:28 | Outpatient (CLI) | payer OTHER, SELFPAY ==
[2024-11-20 16:06] LABS: Albumin* 4.7 g/dL (3.3-5.0); Chloride* 102 mmol/L (96-114)
[2024-11-20 16:07] LABS: Potassium* 4.3 mmol/L (3.6-5.1); Sodium* 139 mmol/L (135-149)
[2024-11-20 16:09] LABS: Alkaline Phosphatase* 38 U/L (40-150); Anion Gap 10 mEq/L (7-15); Aspartate Amino Transferase* 20 U/L (12-35); Bilirubin Total* 0.6 mg/dL (0.1-1.5); Blood Urea Nitrogen* 9 mg/dL (5-24); Carbon Dioxide* 27 mmol/L (20-32); Estimated Glomerular Filt Rate 72 ml/min; Total Protein* 7.3 g/dL (6.0-8.3)
[2024-11-20 16:10] LABS: Alanine Aminotransferase* 14 U/L (4-35); Calcium* 9.3 mg/dL (8.4-10.6); Glucose* 75 mg/dL (60-115)
[2024-11-21 18:36] LABS: Urine Osmolality 57 mOsm/kg (50-800)
== END 2024-11-20 10:29 | disposition home or self-care (01) ==
LOC: NPINS 10:30
PROVIDERS: PCP Physician Assistant Medical; Visit Provider Internal Medicine Nephrology
DX: Q61.2 Polycystic kidney, adult type (principal)
CPT/HCPCS: 80053; 83935

== ENCOUNTER 2025-02-18 11:27 | Outpatient (CLI) | payer OTHER, SELFPAY ==
[2025-02-18 15:13] LABS: Albumin* 4.3 g/dL (3.3-5.0); Chloride* 103 mmol/L (96-114); Potassium* 4.6 mmol/L (3.6-5.1); Sodium* 137 mmol/L (135-149)
[2025-02-18 15:15] LABS: Blood Urea Nitrogen* 8 mg/dL (5-24); Creatinine* 0.9 mg/dL (0.5-1.5); Estimated Glomerular Filt Rate 81 ml/min
[2025-02-18 15:16] LABS: Alanine Aminotransferase* 13 U/L (4-35); Alkaline Phosphatase* 42 U/L (40-150); Anion Gap 5 mEq/L (7-15); Aspartate Amino Transferase* 24 U/L (12-35); Bilirubin Total* 0.9 mg/dL (0.1-1.5); Calcium* 9.5 mg/dL (8.4-10.6); Carbon Dioxide* 29 mmol/L (20-32); Glucose* 70 mg/dL (60-115); Total Protein* 6.9 g/dL (6.0-8.3)
[2025-02-20 19:19] LABS: Urine Osmolality 90 mOsm/kg (50-800)
== END 2025-02-18 11:28 | disposition home or self-care (01) ==
LOC: NPINS 11:28
PROVIDERS: PCP Physician Assistant Medical; Visit Provider Internal Medicine Nephrology
DX: Q61.2 Polycystic kidney, adult type (principal)
CPT/HCPCS: 80053; 83935

== ENCOUNTER 2025-05-27 08:59 | Outpatient (CLI) | payer OTHER, SELFPAY ==
[2025-05-27 14:09] LABS: Albumin* 4.1 g/dL (3.3-5.0); Chloride* 106 mmol/L (96-114); Potassium* 4.6 mmol/L (3.6-5.1); Sodium* 138 mmol/L (135-149)
[2025-05-27 14:12] LABS: Alanine Aminotransferase* 11 U/L (4-35); Alkaline Phosphatase* 41 U/L (40-150); Anion Gap 5 mEq/L (7-15); Aspartate Amino Transferase* 23 U/L (12-35); Bilirubin Total* 0.5 mg/dL (0.1-1.5); Blood Urea Nitrogen* 10 mg/dL (5-24); Calcium* 9.4 mg/dL (8.4-10.6); Carbon Dioxide* 27 mmol/L (20-32); Creatinine* 0.9 mg/dL (0.5-1.5); Estimated Glomerular Filt Rate 81 ml/min; Glucose* 88 mg/dL (60-115); Total Protein* 6.7 g/dL (6.0-8.3)
== END 2025-05-27 09:00 | disposition home or self-care (01) ==
LOC: NPINS 09:00
PROVIDERS: PCP Physician Assistant Medical; Visit Provider Internal Medicine Nephrology
DX: Q61.2 Polycystic kidney, adult type (principal)
CPT/HCPCS: 80053; 83935

== ENCOUNTER 2025-07-27 09:18 | Outpatient (CLI) | payer OTHER, SELFPAY | END 2025-07-27 09:19 | disposition home or self-care (01) | LOC: NFLDREF 07-29 09:47 | PROVIDERS: PCP Physician Assistant Medical; Referring Provider Physician Assistant Medical; Visit Provider Physician Assistant Medical | DX: Z13.9 Encounter for screening, unspecified (principal); Q61.3 Polycystic kidney, unspecified; Z13.220 Encounter for screening for lipoid disorders | CPT/HCPCS: 80053; 80061; 84443; 87086 ==